=== PATIENT | male | born 1955 | race Caucasian/White ===

== ENCOUNTER 2024-01-13 14:09 | Outpatient (OUT) | payer MEDICARE, SELFPAY | END 2024-01-13 14:10 | disposition home or self-care (01) | LOC: PST 14:10 | PROVIDERS: Visit Provider Surgery | DX: Z01.818 Encounter for other preprocedural examination (principal); R19.5 Other fecal abnormalities ==

== ENCOUNTER 2024-09-08 12:06 | Outpatient (OUT) | payer MEDICARE, SELFPAY ==
--- OUTSIDE RECORDS SUMMARY | 2024-09-08 12:27 | XMS_ITS | CCD ---
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 Name Role Phone ALESSIO GÓMEZ Unavailable Unavailable GERRI ROQUE Unavailable Unavailable Karen David Primary Care Physician NILL ., DR CINTRON Attending Unavailable NILL ., DR CINTRON Admitting Unavailable KAREN DAVID Admitting Unavailable KAREN DAVID Attending Unavailable KAREN DAVID Primary Care Unavailable Karen David Referring Unavailable Abdulaziz GORE Attending Unavailable Karen David Referring Unavailable Abdulaziz GORE Attending Unavailable Allergies Allergy Classification Reported Allergen(s) Allergy Type Date of Onset Reaction(s) Facility (1 source) No Known Medication Allergies; Translations: [No Known Medication Allergies] Propensity to adverse reactions (disorder) [facility] Repository Medications Current Medications Medication Drug Class(es) Dates Sig (Normalized) Sig (Original) aspirin 81 mg delayed release oral tablet (4 sources) Platelet Aggregation Inhibitor, Nonsteroidal Anti-inflammatory Drug Start: 10-19-2022 take 1 tablet by mouth once daily aspirin 81 mg Oral EC Tab 81 mg = 1 tab(s), Oral, Daily, Refills(s) 0 Start Date: 10/19/22 Status: Ordered atorvastatin 40 mg oral tablet (4 sources) HMG-CoA Reductase Inhibitor Start: 10-19-2022 take 1 tablet by mouth once daily atorvastatin 40 mg Tab 40 mg = 1 tab(s), Oral, Daily, Refills(s) 0 Start Date: 10/19/22 Status: Ordered carvedilol 6.25 mg oral tablet (2 sources) alpha-Adrenergic Sonia, beta-Adrenergic Sonia Start: 12-03-2023 take 1 tablet by mouth twice daily Coreg 6.25 mg Tab 6.25 mg = 1 tab(s), Oral, BID, Refills(s) 0 Start Date: 12/03/23 Status: Ordered lisinopril 40 mg oral tablet (4 sources) Angiotensin Converting Enzyme Inhibitor Start: 10-19-2022 take 1 tablet by mouth once daily lisinopril 40 mg Tab 40 mg = 1 tab(s), Oral, Daily, Refills(s) 0 Start Date: 10/19/22 Status: Ordered meloxicam 7.5 mg oral tablet (1 source) Nonsteroidal Anti-inflammatory Drug Start: 12-03-2023 take 1 tablet by mouth once daily meloxicam 7.5 mg Tab 7.5 mg = 1 tab(s), Oral, Daily, Refills(s) 0 Start Date: 12/03/23 Status: Ordered pantoprazole 40 mg delayed release oral tablet (4 sources) Proton Pump Inhibitor Start: 10-19-2022 take 1 tablet by mouth once daily Pantoprazole [address] Tab 40 mg = 1 tab(s), Oral, Daily, Refills(s) 0 Start Date: 10/19/22 Status: Ordered sertraline 100 mg oral tablet (4 sources) Serotonin Reuptake Inhibitor Start: 10-19-2022 take 1 tablet by mouth once daily Zoloft 100 mg Tab 100 mg = 1 tab(s), Oral, Daily, Refills(s) 0 Start Date: 10/19/22 Status: Ordered tiZANidine 4 mg oral tablet (2 sources) Central alpha-2 Adrenergic Agonist Start: 10-19-2022 take 2 tablets by mouth at bedtime tiZANidine 4 mg Tab 8 mg = 2 tab(s), Oral, Bedtime, Refills(s) 0 Start Date: 10/19/22 Status: Ordered Problems Problem Classification Problem Date Documented Da te Episodic/Chronic Abdominal pain (11 sources) Epigastric pain; Translations: [Epigastric pain] Onset: 10-30-2022 Episodic Biliary tract disease (5 sources) Cholelithiasis without obstruction; Translations: [Calculus of gallbladder without cholecystitis without obstruction] Onset: 10-30-2022 Episodic Coronary atherosclerosis and other heart disease (6 sources) Coronary arteriosclerosis; Translations: [History of myocardial infarction] 10-19-2022 Chronic Essential hypertension (4 sources) Hypertensive disorder 10-19-2022 Chronic Hepatitis (4 sources) Viral hepatitis C 10-19-2022 Episodic Hyperplasia of prostate (10 sources) Benign prostatic hyperplasia; Translations: [Prostate nodule] Onset: 09-26-2022 10-19-2022 Chronic Other connective tissue disease (4 sources) Impingement syndrome of shoulder region 10-19-2022 Episodic Other gastrointestinal disorders (3 sources) Occult blood in stools 12-03-2023 Episodic Other gastrointestinal disorders (1 source) Abnormal feces; Translations: [Other fecal abnormalities] Onset: 08-18-2024 Episodic Other liver diseases (4 sources) Elevated liver enzymes level 10-19-2022 Episodic Other male genital disorders (4 sources) Impotence 10-19-2022 Chronic Other nervous system disorders (4 sources) Paresthesia 10-19-2022 Episodic Other nutritional; endocrine; and metabolic disorders (4 sources) Overweight in adulthood with body mass index of 25 or more but less than 30 10-30-2022 Episodic Other nutritional; endocrine; and metabolic disorders (2 sources) Overweight 12-10-2023 Episodic Residual codes; unclassified (4 sources) Edema of lower extremity 10-19-2022 Episodic Residual codes; unclassified (4 sources) Insomnia 10-19-2022 Episodic Spondylosis; intervertebral disc disorders; other back problems (4 sources) Disorder of lumbar disc 10-19-2022 Chronic Spondylosis; intervertebral disc disorders; other back problems (4 sources) Low back pain 10-19-2022 Episodic Substance-related disorders (4 sources) Psychoactive substance abuse 10-19-2022 Chronic Unclassified (1 source) Unknown / UNK(Unknown) Onset: 12-30-2017 Results Test Name Value Interpretation Reference Range Facility Ambulatory Visit Summaryon 1 10-19-2023 Ambulatory Visit Summary Ambulatory Visit Summary CARLOS MARCOS Herring :1955 Visit Date:08/18/2024 Ambulatory Visit Instructions Your Diagnosis Fecal occult blood test positive Abdominal pain, right lower quadrant Your Care Team Attending Physician - Abdulaziz GORE MD Primary Care Physician - Karen David MD Referring Physician - Karen David MD This Is Your Medications List Contact prescribing physician if questions or concerns aspirin (aspirin 81 mg Oral EC Tab) atorvastatin (atorvastatin 40 mg Tab) carvedilol (Coreg 6.25 mg Tab) lisinopril (lisinopril 40 mg Tab) pantoprazole (Pantoprazole [address] Tab) sertraline (Zoloft 100 mg Tab) Procedures Performed Anterior transposition of ulnar nerve, CABG x 3 - Coronary artery bypass grafts x 3, Lumbar discectomy. Discharge Vitals Heart Rate (Peripheral) 72 Respiratory Rate 16 Blood Pressure 142/84 Height 167 cm Height 66 in Weight 67.9 kg Weight 149.694 lb BMI 24.35 Medications What How Much When Instructions Unchanged aspirin (aspirin 81 mg Oral EC Tab) 1 Tablets By Mouth Every day Contact prescribing physician if questions or concerns Unchanged atorvastatin (atorvastatin 40 mg Tab) 1 Tablets By Mouth Every day Contact prescribing physician if questions or concerns Unchanged carvedilol (Coreg 6.25 mg Tab) 1 Tablets By Mouth 2 times a day Contact prescribing physician if questions or concerns Unchanged lisinopril (lisinopril 40 mg Tab) 1 Tablets By Mouth Every day Contact prescribing physician if questions or concerns Unchanged pantoprazole (Pantoprazole [address] Tab) 1 Tablets By Mouth Every day Contact prescribing physician if questions or concerns Unchanged sertraline (Zoloft 100 mg Tab) 1 Tablets By Mouth Every day Contact prescribing physician if questions or concerns Allergies No Known Allergies No Known Medication Allergies Problems Ongoing - Any problem that you are currently receiving treatment for. Abdominal pain, right lower quadrant BPH (benign prostatic hyperplasia) CAD (coronary artery disease) Cholelithiasis Elevated liver enzymes Epigastric pain Fecal occult blood test positive Hepatitis C History of myocardial infarction HTN (hypertension) Impotence Insomnia Low back pain syndrome Lower extremity edema Lumbar disc disease Narcotic abuse Paresthesia Positive fecal occult blood test Prostate nodule Shoulder impingement syndrome Historical - Any problem that you are no longer receiving treatment for. BMI 25.0-25.9,adult Overweight Patient Survey You may receive a survey via text or e-mail asking about your office visit. Please share your experience with us by completing your survey. We appreciate your feedback and thank you for choosing us for your care. Sherri Waddell [facility] General Surgery Office/Clini c Noteon 08-18-2024 General Surgery Office/Clinic Note General Surgery Office/Clinic Note Chief Complaint update H&P for colonoscopy HPI Staff 69 year old male presents on consultation to update H&P for planned colonoscopy. Last consultation completed 12/2023. Patient cancelled scheduled colonoscopy due to family issues. Never had colonoscopy in the past. No known family history of colon cancer. Reports occasional RLQ pain that lasts for approximately 5 minutes then resolves without intervention. Denies rectal pain or bleeding. Denies bowel changes, nausea or vomiting. History of Present Illness 69 yo male with h/o CAD, htn, hypercholesterolemia, GERD, low back pain, hepatitis C, bph, presents to reschedule colonoscopy; seen in December for positive fecal occult blood test; cancelled colonoscopy at that time; denies change in bms or gross blood in stools; some intermittent RLQ pain, ache, lasts , 10 minutes, no N/V; no wt loss; h/o remote appendectomy; no previous colonoscopy; on baby asa daily, no NSAID use currently; no tobacco use; no fmhx of GI malignancy or IBD. Review of Systems PHQ Score Initial Depression Screen Score: 0 SCORE ROS - Provider Constitutional: no fever, no sweats, no weight loss. Eyes: yes glasses, no blurred vision, no visual loss. ENMT: no dentures, no hoarseness, no swallowing difficulties, no hearing loss, no ear infection(s), no nose bleeds. Cardiovascular: normal blood pressure, no chest pain, regular heartbeat, no heart murmur. Respiratory: no shortness of breath, no cough, no asthma, no wheezing. Gastrointestinal: no nausea, no vomiting, no diarrhea, no constipation, no blood in stool, no change in bowel habits, no abdominal pain, no hepatitis. Genitourinary: no kidney stones, no urine infection, no dysuria. Musculoskeletal: no pain, no weakness. Skin: no changing moles, no rash, no skin lumps. Neurologic: no seizures, no epilepsy, no headache. Psychiatric: no emotional or psychiatric problem. Heme/Lymph: no bleeding problems, no anemia, no blood clots, no transfusions. Allergy/Immunologic: no swollen lymph nodes/glands, no IV drug abuse. Other: Additional ROS info: Except as noted in the above Review of Systems and in the History of Present Illness, all other systems have been reviewed and are negative or noncontributory. Physical Exam Vitals & Measurements HR: 72(Peripheral) RR: 16 BP: 142/84 HT: 66 in HT: 167 cm WT: 67.9 kg WT: 149.694 lb BMI: 24.35 HEENT: normal conjunctiva, sclera clear, no scleral icterus, EOM intact, PERRLA, oral mucosa moist without lesions. Neck: trachea midline, no mass, symmetric, no thyromegaly or nodules, no adenopathy Respiratory: lungs CTA, respirations non labored. Cardiovascular: regular rate and rhythm, no murmur, no pedal edema or varicosities. Gastrointestinal: soft, non distended, mild tenderness RLQ, no peritoneal signs, no masses, no palpable hernias, diastasis recti no, no hepatosplenomegaly; normal bs Lymphatic: no cervical adenopathy, no supraclavicular adenopathy. Musculoskeletal: normal gait, digits and nails without infection, nodes, cyanosis, clubbing. Skin: no rashes, no lesions, no ulcers, no subcutaneous nodules, induration. Psychiatric/Neuro: oriented to time, place, person, judgement normal, affect appropriate for age, insight intact, no focal deficits. Tests: labs reviewed, review of old records completed , Discussed surgical options, risks, and possible complications with patient. Assessment/Plan 1. Fecal occult blood test positive (R19.5: Other fecal abnormalities) plan colonoscopy under anesthesia, informed consent obtained. 2. Abdominal pain, right lower quadrant (R10.31: Right lower quadrant pain) see # 1 Follow-up No qualifying data available Problem List/Past Medical History Ongoing Abdominal pain, right lower quadrant BPH (benign prostatic hyperplasia) CAD (coronary artery disease) Cholelithiasis Elevated liver enzymes Epigastric pain Fecal occult blood test positive Hepatitis C History of myocardial infarction HTN (hypertension) Impotence Insomnia Low back pain syndrome Lower extremity edema Lumbar disc disease Narcotic abuse Paresthesia Positive fecal occult blood test Prostate nodule Shoulder impingement syndrome Historical BMI 25.0-25.9,adult Overweight Procedure/Surgical History Anterior transposition of ulnar nerve, CABG x 3 - Coronary artery bypass grafts x 3, Lumbar discectomy. Medications aspirin 81 mg Oral EC Tab, 81 mg= 1 tab(s), Oral, Daily atorvastatin 40 mg Tab, 40 mg= 1 tab(s), Oral, Daily Coreg 6.25 mg Tab, 6.25 mg= 1 tab(s), Oral, BID lisinopril 40 mg Tab, 40 mg= 1 tab(s), Oral, Daily Pantoprazole [address] Tab, 40 mg= 1 tab(s), Oral, Daily Zoloft 100 mg Tab, 100 mg= 1 tab(s), Oral, Daily Allergies No Known Allergies No Known Medication Allergies Social History Alcohol Current. Beer. Daily., 08/18/2024 Substance Abuse Current. Marijuana. 3-5 times per week. Previous treatment: None., (more content not included)... [facility] Comment on above: Result Comment: Elec tronically Signed By: BAO NOVA, Abdulaziz Travis\Date and Time Signed: 08/18/24 14:30 EST Insurance Correspondenceon 0 01-01-2024 Insurance Correspondence [id number] [facility] Coding Queryon 12-18-2023 Coding Query [id number]#[id number] [facility] Coding Summaryon 12-18-2023 Coding Summary HTMLBase 64 KgonpukaYVw3wBc+PGhlYWQ+PE1F ETPzY60afVWwvJ2dX5BORPaCRzpd WUOUMBzNVnQmvkLhGR2nmLYiDIRi IC8+VP4rLRZiQuxkjKDwf5R4kXJ3 T21rkc2kFKqjuPQ1KMRaTgFxygnx j1nekHm2IVozVkjqUoFz WQNisY64ZJF4eM18Sj70kMCczAPq d4setWi3ZiCjFSPzGRM7iCgpMSid u5AmTMHaR00fxPYel8B1 WGBnzUrrrFVzUwVdsTZ9fG7rHJtf qtbra0oqydowTni4tm83uOUfk2U5 aZA0A5RkynI3PGTioXLb HlhwtDEMsB8bvmlbq3kiqyijIbFv KSUzJIq8XSi2OFIjpSbyBoSiCD67 UJV5OYQundIsM2NyJMAf iTyeEbZ7x3Z1Bj7MO2PXVfjgD5YC TUFSWTwvdGQ+CE00wv88M2VwJxtg Ihc5QFGsZWA9dEM3kY4m OHKhJNxwd0O5tUT1K3EaqyIpnc5a x9tgEYCkLChkU30gkZEij9T9MTKd mBW3JSVbvAymPdWeeW96 Oyc+RFNnxKvxt6WiVgwur5xks1hd sOd0LakcBVCtfcVkgIopKSZ7p7To Vk3rRGJyzOH7jVX5eJ7y TuWaXrU4QQjpF837HsAznQZcAofg N08aQ5LbqOE+JRRlXyx0PIIztZlj BH5mX0EbLHQrgtfnwOQl nEidVA7sUCXvhcxoJNKxyB2nMLOi D1j0KoJjRpW3JTwuC5CpUAIwakkp Ja18nT9nZgKsEwQ4QAbe S2IboqT1XZWmxETnOVezOSV7W09o m8U1WBDqWTOfNHI5kIG8dD1ceHoq bjogbGVmdDsgdmVydGlj VRahZMhkG990AMRrqSupCtRsJMtc ZyBEYXRlOiAgMDQvMTAvMjAyNDwv dGQ+ODSaFBL0vJxlXKZj bYWlMVmfUm6vzNspfLduRL2pSIBi jvsaHYVtbA5oRNSkjSGgiUpiAP0x ZEQoxzlpd812DlNfOCW2 SSHtlMGpG1CagM7kWnWtOILvTWZy B3EfkKDkXTbmG021WBgcAlZ1FGLj ogCfX9FtQZGtgFcgTqQ5 g1L2Zl4Qe3AvxbrsJ1PmkKYfNtTg GjehAJg4H8ShExrzgRE+XV13YLUq XX77LNa7FZY6eNizUIzd SJMoM4UiqL3pLnYfJEIyOVLyXgr+ PHRhYmxlIHdpZHRoPScxMDAlJyBz aFbrJX7mPd3bGRAkSVMo nCskbOUfFhIzv6lvWGVfXWqkYH5i bKxeY1ZtoKD0JQNta7a7Vf90U13g W6VmlMS+RJMldAM3oUQ2 sD1pSyNkAfX4MQwjD349HmXquPDe Xrecc1vis3asyIq0HuP8SQFzlhZq rUawPVW4m5DbOw76D20h LDumOIDcGULgAXDaPWXizXsier8m lC7uRb0+NPRdlEE7jRS6mZ4xAcXx DbB8PAdlN543WtImlUGu Olyaf5zlp6phlLb9IsFrIEFcylUd lCheHWC3y0HxYj62T1RuvNgfn8At Rbd9fh01qITyf4F4sGL8 Q4OfUOKzclijfFXeoSseZU6nWJGz vjcsDBBpxW0rRYEsN4x7YnSnHlA5 VNftJ7GdwiT9CICqkNBq QJXfpPXAmN1qzamaq2cjedbsPaSd XUDgPSh0NRy0DKMapXumVhQwJKO3 WjT0GOK3jDQgcY7bkHmb hxvksH3vEvd+EDF0zFMfaQVDFX3j OjwvdGQ+VYNpQWP6iQwzMMeuZEXc cK0qQITuH4i8NcFuNrA5 MKudP0DhzoZ6BWWfhBWbPFLujHFM qD0aaruiw4vbbiztAvElTXGkPDf5 KLs3BRJsbLpzDzXhZWI6 IzR6KNW7hUVazJ7dsNwvjiptgG0s Oyc+QxsrkXhhZMM8MDv4N9WoJqx8 ZJYpiBzbCZ6quKQzRHng Hp1qbKxquRykDR3hXNLwwmxjb051 LmDyd4xaADTpwDYsKCoaRXD5R96k s5E3ANCaXXJrVTU7uFS1 oG4aoJjhshoirZCbiHkixhUjbMfb MCgzHVweR257XCHcpXahUzJiBEg9 D2DnNeu3JOAjaBnqED4w kNIsJOheSy8zmQstaVhtWE8pLZOz tmyrn208BvAlm6klQPZxeJLpMJcb TPN7Q05hv5A2HLZeBMVu HKG8hXH9zV2rgQwcncshzQAouVyr brTwdXqvWLekOCizX374KPEbbQhz CzJapJd3J8MgDfg8PYGe dQznDX1ueNMsDOdnIs0agKzjzAxi MM7bRSBkwrpnx983HrUah0acEZHm uHHkXWddFMT4K54fe5B2 BGBkECOvQZT1pTJ1yR1rdLgxmjqj cABqnZamzaNhtNpdILlfZKttI760 IHRvcDsnPlBhdGllbnQg QQhhVWv7Q5BvWwxhrNZ+PO08LEBg BS17mLGpoRStg5dtpTt4WcDoYGCn VAN9yPcjITfqu5ToJCEj E56hpUNpt3W7PHUeaRlqeBUqTeWk dHK4wK7dZWhjnebjr4dbdzmbGapl e8dlxn72rI19F11qXJtt PDGyCJWuRWVzUWVkdOkbdp8fyE2b Ii8+XKRzvAK0fKZ1nM1sJBWbFdY0 SSzaI688CqXcbWHwZwzz t9aab3nxgYf3AeS2YYEzjcRkkQyl JIV4y4NnZa96I22vETrbVBOzTHZq SSCxDPYkjWhsvw0wgF1u Ii8+CZMrfFF8uBH7dG6hAmXcTuX2 OWouN024TaCeeZYtPcoyO51zT7Lc dXA+GHEqBwv3HVPudHvi DL3xmRIiXDmpFk8sJXC0JpQiAbNx YRrnT8HjUKGvpkdhlocdaME4HQVt RVCyhO35Gn0jqQwdEYEe kCLDxW9pbvxzw1gypgfbOfTvFITv RCp4YHj8PWVwcOgjSnAsJMD3NlE3 KMJ5cVPaeS0xoGvuoldm qR7hN6SoSKIdyybmSw06cH1yVxIu EgT7TAlnBxf+X18VG8vpLW7KUhaw Na6VTGTFDN54DE62uGWb f0Z4iEV0U0IqDGOsfkdlybqhpYG7 HOWsYZQfbV66uJLaLRsvVi0hs9P9 f124PBRkTLRppQ89Bz8c jImrZVOfiXYKyT8nhcrrz7uftkkv EsOkNJTpBRb1LDm6BSJecGffOhAe ODP3YcX6NQH6bBBqtE5s cExvuwwalM9mJtq+MDYvMDUvMTk1 NjwvdGQ+ZCTdNLA3eCkmCBhhQDEm xF8zJWXfW1n7JyHkIkC1 NMfhB3ZqSTBhexgyBh47hY7zEpJj KrV1ZIdbU9AckiB0BOGkhEYbYTdk IRF1Q56iw0A4VBGmEMWf DGS6wLZ3nV4hiEfgidaddJWruPos csVksCztWHqnGHabN885UMVdsYbw GkS8NKdnOJSeWI74KS12 iBIgu8Q1wIN7V6ElKACmyaixuwda xKF8OLEmIJKmlF38hDYhXAhyKp3s w4T9o134MUGeLEJzfM83 Eo7ggQsrGUNbdCSCyA1iydmue3mw fxdsFhLpNDDbBYu6GUs1NMRquJut IsTfSSC6ZcV7CTR2hMGr tD8chZhzovzltZ2wZxc+TUFMRTwv dGQ+MSLqDHF7qCbhDOkeQMUzjR2s VANzX9l2DaScApY7OWjj S7KcBEJlqscpXg77yQ4zPkGwAeH3 VSugP5BcfwC3GIYchMRyIMeeHVU6 E27sr4B0PQRrNDIsIDR1 eLG3qC8fcLsgcbskiSPrqPjurqFh jUcpJZewZSrfN549ZYLidVdjDi4S JO64JY39T6RhMmukhKFo bGU+PHRhYmxlIHdpZHRoPScxMDAl NmHfvTigYT0gMg2oTINxFFCaxBkt kYEaOoRsb1ntZQRoCVhu FV0oiRjaY8XjyGY1GSWuc0q1Rs50 Y82yJ6WynPB+RTUttZJ5sNR7wW4o YkNbSaJ6UDlhY528PhNx jKKqVajml8uvv3cknLh2BuIoQLPl xwKtcEmfKIV2c1WxHc40N43rDQdk ZHRoPSIyMCUiIHZhbGln gc8vsB4gIz8+SZSkdWW3hNX2lO6o MkAiYlB6CSysN021OtJnpSXsCmsu T92gZ6RmtIH+PHRyPjx0 UVStxMkqEM5ipZUkRLtlWw7yMSS2 UqHcMpAuBUdsU1ZaCZUyiwhfbfhf yBN5RKLeIWFxoV36Wo7j kIysFy7tPLGmVKO5BMXdzNIjB8Il wW4eElXoXTUwQMPgN4ZkvOXzHAiq P791TUaxDoN9SCLniyTm T2XsVPJnyGltXaT8q5Z8Lc3TdZzo gDKhCG6fLmHzITg9G5RoQkk2SHLt yLwyVB7saYSoTTebWi4j gTbuoJdwAP7yTGWllkpcg205OjXq f7nlTLJhnGMgYQayAVM9W40jf7R0 SNZmHWBzREC2qFS3yG2u bGlnbjogbGVmdDsgdmVydGljYWwt DEpwY234LTBnjLzbKaXMQkh8Z2Td Kfs5EWGahPurHS9azNPx WSpxBx7xaOuthEkgNP0xUJPzviax s786HkEzv7juSNGtsFSlIUrzBIU5 F82mn1Y3XMCsIOKzAXG0 lIU0eH8unKupdagxaCPohWbweiEu tHruAGabEVymQ202IMJkfIdxDw1D Ggu0I1EyWkk2CLNjdDcm VE1dpPPrLKdzJm6yqNurnJbmFZ3m QJXzzzbuw133LyOhp9suYBOknOKi EDvzXPU9N36pv6P2QFZo SJEqRCF0hZO4wJ8jdAgiqrnjqCIw yOgoflXfsJorFVbtQLyeN360HQGv cDsnPlBheWVyOjwvdGQ+ OM58hf54E6YkDjotUgw1LOUhUZG2 zBU6hY4vKXQwBTfej1G9oUH1G4Ge ghZted7wn6clEMIzHBca Y29 (more content not included)... [facility] Consent for Procedure/Surger yon 12-11-2023 Consent for Procedure/Surgery [id number]#[id number] [facility] Ambulatory Visit Summaryon 0 12-10-2023 Ambulatory Visit Summary MARCOS GONZALEZ :1955 Visit Date:12/10/2023 Ambulatory Visit Instructions Your Care Team Attending Physician - Abdulaziz GORE MD Primary Care Physician - Karen David MD Referring Physician - Karen David MD This Is Your Medications List Contact prescribing physician if questions or concerns aspirin (aspirin 81 mg Oral EC Tab) atorvastatin (atorvastatin 40 mg Tab) carvedilol (Coreg 6.25 mg Tab) lisinopril (lisinopril 40 mg Tab) meloxicam (meloxicam 7.5 mg Tab) pantoprazole (Pantoprazole [address] Tab) sertraline (Zoloft 100 mg Tab) Procedures Performed Anterior transposition of ulnar nerve, CABG x 3 - Coronary artery bypass grafts x 3, Lumbar discectomy. Discharge Vitals Heart Rate (Peripheral) 66 Respiratory Rate 16 Blood Pressure 178/94 Height 167 cm Height 66 in Weight 71.6 kg Weight 157.52 lb BMI 25.67 Medications What How Much When Instructions Unchanged aspirin (aspirin 81 mg Oral EC Tab) 1 Tablets By Mouth Every day Contact prescribing physician if questions or concerns Unchanged atorvastatin (atorvastatin 40 mg Tab) 1 Tablets By Mouth Every day Contact prescribing physician if questions or concerns Unchanged carvedilol (Coreg 6.25 mg Tab) 1 Tablets By Mouth 2 times a day Contact prescribing physician if questions or concerns Unchanged lisinopril (lisinopril 40 mg Tab) 1 Tablets By Mouth Every day Contact prescribing physician if questions or concerns Unchanged meloxicam (meloxicam 7.5 mg Tab) 1 Tablets By Mouth Every day Contact prescribing physician if questions or concerns Unchanged pantoprazole (Pantoprazole [address] Tab) 1 Tablets By Mouth Every day Contact prescribing physician if questions or concerns Unchanged sertraline (Zoloft 100 mg Tab) 1 Tablets By Mouth Every day Contact prescribing physician if questions or concerns Allergies No Known Allergies No Known Medication Allergies Problems Ongoing - Any problem that you are currently receiving treatment for. Abdominal pain, right lower quadrant BMI 25.0-25.9,adult BPH (benign prostatic hyperplasia) CAD (coronary artery disease) Cholelithiasis Elevated liver enzymes Epigastric pain Fecal occult blood test positive Hepatitis C History of myocardial infarction HTN (hypertension) Impotence Insomnia Low back pain syndrome Lower extremity edema Lumbar disc disease Narcotic abuse Overweight Paresthesia Prostate nodule Shoulder impingement syndrome Patient Survey You may receive a survey via text or e-mail asking about your office visit. Please share your experience with us by completing your survey. We appreciate your feedback and thank you for choosing us for your care. Normal [facility] Coding Queryon 11-29-2023 Coding Query [id number]#[id number] [facility] Physician Referralon 024 Physician Referral [id number]#1.00TIFF Normal [facility] Physician Referral [id number]#1.00TIFF [facility] Fecal FITon 11-22-2023 Fecal FIT Positive Abnormal Negative [facility] Comment on above: Performed By: #### 1 [id number] #### [facility] (DEFAULT) [address] [place] [address] Internal QC OK? Pass Normal [facility] Comment on above: Performed By: #### 1 [id number] #### [facility] (DEFAULT) [address] [place] [address] T3 Free LCon 11-22-2023 Triiodothyronine,Fr ee,Serum LC 3.4 pg/mL Invalid Interpretation Code 2.0-4.4 [facility] Comment on above: Result Comment: Perf ormed At: [facility] [address] [id number] Brooklynn Tom PhD Ph:[phone] Performed By: #### 1 [id number] #### [facility] (DEFAULT) [address] [place] [address] T4, Totalon 11-21-2023 T4 [Mass/Vol] 6.21 ug/dL Normal 6.09-12.23 [facility] Comment on above: Performed By: #### 1 [id number], [id number], [id number], [id number], [id number], 70864757, 6012652, 13609900, [id number] #### [facility] (DEFAULT) [address] [place] [address] .Auto Diff 1on 11-19-2023 Auto Webster % 12 % Normal 09-20 [facility] Comment on above: Performed By: #### 1 [id number], [id number], [id number], 2705038, [id number], 35160264, 6836189, 33101234, [id number] #### [facility] (DEFAULT) [address] [place] [address] Baso Abs# 0.0 x10 Normal 0.0-0.2 [facility] Comment on above: Performed By: #### 1 [id number], [id number], [id number], 1995245, [id number], 11844233, 1491744, 76827274, 13711004 #### [facility] (DEFAULT) [address] [place] [address] Basophils/100 WBC (Bld) 0.8 % Normal 0.2-2.0 [facility] Comment on above: Performed By: #### 1 [id number], 7858783, [id number], 1305013, 3914134933, 23099319, 9427412, 31351496, 34819441 #### [facility] (DEFAULT) [address] [place] [address] Eos Abs# 0.2 x10 Normal 0.0-0.4 [facility] Comment on above: Performed By: #### 1 [id number], 5790799, [id number], 2820369, [id number], 15184837, 1860353, 00774347, 22887974 #### [facility] (DEFAULT) [address] [place] [address] Eosinophils/100 WBC (Bld) 3.6 % Normal 0.9-4.0 [facility] Comment on above: Performed By: #### 1 [id number], 9364645, [id number], 6298891, 1787652469, 43644562, 7152925, 75408836, 06454467 #### [facility] (DEFAULT) [address] [place] [address] 48698 Lymph Abs# 1.3 x10 Normal 1.3-2.9 [facility] Comment on above: Performed By: #### 1 [id number], 7815392, 0275603294, 7774086, 0940914221, 74835442, 3375159, 44365716, 46636183 #### [facility] (DEFAULT) [address] [place] [address] Lymphocytes/100 WBC (Bld) 23 % Normal 14-48 [facility] Comment on above: Performed By: #### 1 [id number], 1888072, 0164413103, 0075803, 8852816366, 96135815, 7471055, 55863441, 35419839 #### [facility] (DEFAULT) [address] [place] [address] Webster Abs# 0.6 x10 Normal 0.0-0.8 [facility] Comment on above: Performed By: #### 1 [id number], 7794689, 1303999266, 2327088, 6855647349, 36471563, 7783046, 68348439, 62044846 #### [facility] (DEFAULT) [address] [place] [address] Neut Abs# 3.4 x10 Normal 1.5-9.2 [facility] Comment on above: Performed By: #### 1 [id number], 7874328, 4250641642, 6615366, 3560756618, 66451588, 9704907, 10462733, 91259036 #### [facility] (DEFAULT) [address] [place] [address] Neutrophils/100 WBC (Bld) 61 % Normal 44-88 [facility] Comment on above: Performed By: #### 1 565511903, 7693999, 9457838403, 6968696, 1734390351, 84039787, 3619516, 02082143, 16343774 #### [facility] (DEFAULT) [address] [place] [address] CBC w/ Auto Diffon 4 Erythrocyte distribution width (RBC) [Ratio] 16.6 % High 11.5-15.0 [facility] Comment on above: Performed By: #### 1 [id number], 7623938, 6745914828, 8327662, 0957578676, 67677039, 2350422, 58765404, 59984673 #### [facility] (DEFAULT) [address] [place] [address] Hematocrit (Bld) [Volume fraction] 38.1 % Normal 34.8-51.9 [facility] Comment on above: Performed By: #### 1 [id number], 2874638, 2220895552, 1500955, 4166122455, 01990687, 6537844, 33917831, 21491332 #### [facility] (DEFAULT) [address] [place] [address] Hemoglobin (Bld) [Mass/Vol] 12.6 g/dL Normal 11.8-17.7 [facility] Comment on above: Performed By: #### 1 625698405, 6433388, 6292040938, 7137047, 2595201681, 03088418, 5160007, 27319293, 30254750 #### [facility] (DEFAULT) [address] [place] [address] Man Diff? Auto Invalid Interpretation Code [facility] Comment on above: Performed By: #### 1 126425378, 4557624, 7447963378, 4922055, 3707592744, 09039695, 7912827, 23455743, 26046697 #### [facility] (DEFAULT) [address] [place] [address] 61859 MCH (RBC) [Entitic mass] 28 pg Normal 24-34 [facility] Comment on above: Performed By: #### 1 442486055, 4588593, 4412477923, 0207122, 7683455178, 86590132, 6265794, 25485521, 06183243 #### [facility] (DEFAULT) [address] [place] [address] 66760 MCHC (RBC) [Mass/Vol] 33 g/dL Normal 26-37 [facility] Comment on above: Performed By: #### 1 681411312, 3955196, 2809482253, 5160627, 7394545968, 09897522, 2297623, 83820414, 90468214 #### [facility] (DEFAULT) [address] [place] [address] 13045 MCV (RBC) [Entitic vol] 83 fL Normal 81-100 [facility] Comment on above: Performed By: #### 1 261973848, 2520130, 3608188085, 6058061, 4850740077, 51178538, 8904882, 41019089, 75354769 #### [facility] (DEFAULT) [address] [place] [address] 11425 Platelet 81 x10 Low 138-427 [facility] Comment on above: Performed By: #### 1 349629582, 8543988, 4255802756, 3346552, 7507583131, 25366287, 8740557, 66599938, 20383561 #### [facility] (DEFAULT) [address] [place] [address] 02231 Platelet mean volume (Bld) [Entitic vol] 9.4 fL Normal 6.3-10.2 [facility] Comment on above: Performed By: #### 1 789218449, 5964236, 6154913419, 7096784, 2504616789, 10369163, 6624551, 58644071, 95060891 #### [facility] (DEFAULT) [address] [place] [address] RBC 4.59 x10 Normal 3.70-5.30 [facility] Comment on above: Performed By: #### 1 946083579, 5901041, 9448116191, 8610367, 1056628721, 04524094, 0339368, 19720796, 96160786 #### [facility] (DEFAULT) [address] [place] [address] 11866 WBC 5.6 x10 Normal 3.5-10.5 [facility] Comment on above: Performed By: #### 1 337494046, 4488823, 4697580627, 7566870, 0900463416, 30925514, 7518466, 56971650, 33261162 #### [facility] (DEFAULT) [address] [place] [address] 70205 CMP Standardon 11-19-2023 eGFR Non AA >60 Invalid Interpretation Code [facility] Comment on above: Performed By: #### 1 051317711, 8288228, 5070661305, 1421910, 1386453272, 26114072, 7360407, 48700408, 30465110 #### [facility] (DEFAULT) [address] [place] [address] eGFR AA >60 Invalid Interpretation Code [facility] Comment on above: Performed By: #### 1 878092883, 3543165, 5460046900, 9687902, 7576738586, 19069385, 5219551, 93610765, 56549829 #### [facility] (DEFAULT) [address] [place] [address] Albumin [Mass/Vol] 4.3 g/dL Normal 3.5-5.0 [facility] Comment on above: Performed By: #### 1 840156271, 6704160, 5328151978, 2833775, 5340799847, 10009018, 8097161, 28000333, 88505672 #### [facility] (DEFAULT) [address] [place] [address] Alk Phos 59 IU/L Normal 32-91 [facility] Comment on above: Performed By: #### 1 920881458, 1708985, 7044960840, 8377017, 5297557879, 63113484, 7629437, 47037785, 66442594 #### [facility] (DEFAULT) [address] [place] [address] ALT [Catalytic activity/Vol] 32.0 U/L Normal 17.0-63.0 [facility] Comment on above: Performed By: #### 1 666302976, 6320308, 1033805043, 5931002, 1964446339, 36423279, 7364828, 17320670, 53629261 #### [facility] (DEFAULT) [address] [place] [address] 47090 AST [Catalytic activity/Vol] 42 U/L High 15-41 [facility] Comment on above: Performed By: #### 1 164489956, 5835100, 4129165586, 0808672, 0399387244, 37197360, 9983666, 00476294, 83739254 #### [facility] (DEFAULT) [address] [place] [address] 42648 Bili Total 0.8 mg/dL Normal 0.3-1.2 [facility] Comment on above: Performed By: #### 1 424680721, 8130877, 4473872116, 6636700, 3675057858, 33036576, 6680402, 08440510, 19581809 #### [facility] (DEFAULT) [address] [place] [address] 38614 Calcium [Mass/Vol] 9.5 mg/dL Normal 8.9-10.3 [facility] Comment on above: Performed By: #### 1 116935938, 0371112, 6672384606, 3053746, 9088719606, 19852405, 8346086, 32553129, 52276625 #### [facility] (DEFAULT) [address] [place] [address] 12006 Chloride [Moles/Vol] 107 mmol/L Normal 101-111 [facility] Comment on above: Performed By: #### 1 450308828, 9097667, 9091129540, 3991253, 0360644048, 51745971, 7086649, 59780198, 30323108 #### [facility] (DEFAULT) [address] [place] [address] 78185 CO2 [Moles/Vol] 25 mmol/L Normal 21-32 [facility] Comment on above: Performed By: #### 1 271041570, 7394180, 5880872612, 8100646, 6523444010, 33397753, 0219498, 34207144, 02298923 #### [facility] (DEFAULT) [address] [place] [address] 54076 Creatinine [Mass/Vol] 1.04 mg/dL Normal 0.90-1.30 [facility] Comment on above: Performed By: #### 1 277216723, 8218320, 6594928204, 5386015, 8295112932, 91029397, 5059024, 34939791, 19930753 #### [facility] (DEFAULT) [address] [place] [address] 07009 Glucose [Mass/Vol] 117.0 mg/dL Normal 74.0-118.0 [facility] Comment on above: Performed By: #### 1 072179338, 7317311, 0077129364, 5052193, 9633995514, 72116562, 3765147, 82349694, 04693044 #### [facility] (DEFAULT) [address] [place] [address] 95760 Potassium [Moles/Vol] 4.4 mmol/L Normal 3.6-5.1 [facility] Comment on above: Performed By: #### 1 415116472, 6622602, 0199972373, 7399860, 6564747328, 20114719, 6731581, 49076455, 43533963 #### [facility] (DEFAULT) [address] [place] [address] 16601 Protein [Mass/Vol] 7.9 g/dL Normal 6.5-8.1 [facility] Comment on above: Performed By: #### 1 221906268, 5594826, 2887539292, 5347147, 1913374700, 18648646, 0939242, 02504547, 38425910 #### [facility] (DEFAULT) [address] [place] [address] 31787 Sodium [Moles/Vol] 138.0 mmol/L Normal 136.0-144.0 [facility] Comment on above: Performed By: #### 1 198199141, 7168436, 4539829453, 9824657, 9520188910, 41587055, 3312745, 04790348, 18010878 #### [facility] (DEFAULT) [address] [place] [address] 84928 Urea nitrogen [Mass/Vol] 14 mg/dL Normal 8-26 [facility] Comment on above: Performed By: #### 1 121127978, 4830289, 6274860296, 2534253, 5829375859, 58490732, 0476178, 63725086, 90536635 #### [facility] (DEFAULT) [address] [place] [address] 42665 Albumin/Globulin [Mass ratio] 1.1 {ratio} Low 1.4-2.6 [facility] Comment on above: Performed By: #### 1 835346668, 8978673, 3720305735, 0514021, 1540219837, 91667253, 7896198, 07549385, 79729177 #### [facility] (DEFAULT) [address] [place] [address] Anion gap [Moles/Vol] 10.4 mmol/L Normal 5.0-19.0 [facility] Comment on above: Performed By: #### 1 431080058, 6731106, 4406668651, 1102705, 6908382668, 82300793, 1609099, 05909207, 19645738 #### [facility] (DEFAULT) [address] [place] [address] 15871 Globulin (S) [Mass/Vol] 3.6 g/dL Normal 1.5-4.3 [facility] Comment on above: Performed By: #### 1 345362734, 2537431, 1142563248, 7248260, 5459905583, 95064981, 7262624, 12896008, 59659166 #### [facility] (DEFAULT) [address] [place] [address] 79855 Osmolality 277 mOsm/L Invalid Interpretation Code [facility] Comment on above: Performed By: #### 1 032498587, 8577199, 6335094634, 0916445, 2230591940, 61922405, 1708511, 88249074, 44021099 #### [facility] (DEFAULT) [address] [place] [address] 07092 Urea nitrogen/Creatinine [Mass ratio] 13.4 mg/mg Normal 4.6-16.2 [facility] Comment on above: Performed By: #### 1 269278774, 1047093, 9272847516, 4506814, 0997928581, 57349073, 8321686, 08666506, 64358934 #### [facility] (DEFAULT) [address] [place] [address] HgbA1c Standardon 11-19-2023 .Hb 12.1 Invalid Interpretation Code [facility] Comment on above: Performed By: #### 1 808497987, 6960991, 8022112155, 2792697, 7373697215, 45717366, 7864990, 38061656, 10394640 #### [facility] (DEFAULT) [address] [place] [address] .Hgb A1c 0.44 g/dL Invalid Interpretation Code [facility] Comment on above: Performed By: #### 1 886661670, 4747003, 3019625497, 3279034, 1172327112, 68148373, 6651345, 11857933, 18168695 #### [facility] (DEFAULT) [address] [place] [address] Glucose [Mass/Vol] 108 mg/dL Invalid Interpretation Code [facility] Comment on above: Performed By: #### 1 316935785, 1808145, 7363131968, 7851482, 3511363387, 25320960, 2714400, 31587731, 80383235 #### [facility] (DEFAULT) [address] [place] [address] HbA1c (Bld) [Mass fraction] 5.4 % Normal 4.6-6.2 [facility] Comment on above: Performed By: #### 1 233886702, 1721053, 5902278598, 5867454, 9033917700, 64598215, 9806889, 95302819, 27452367 #### [facility] (DEFAULT) [address] [place] [address] Lipid Panel Standardon 11-18 Cholesterol [Mass/Vol] 191.0 mg/dL Normal 66.0-200.0 [facility] Comment on above: Performed By: #### 1 683764213, 5487267, 9890314685, 5509160, 0114655791, 79989705, 4366467, 71744628, 56994090 #### [facility] (DEFAULT) [address] [place] [address] Cholesterol in HDL [Mass/Vol] 67 mg/dL Normal 40-71 [facility] Comment on above: Performed By: #### 1 620924543, 8711252, 5967187812, 1734754, 2284283724, 49142510, 6635047, 45188746, 03206997 #### [facility] (DEFAULT) [address] [place] [address] 94570 Triglyceride [Mass/Vol] 212.0 mg/dL High 0.0-150.0 [facility] Comment on above: Performed By: #### 1 059513593, 6975421, 9415651804, 0111844, 1067653488, 33228441, 7547802, 42566883, 50982941 #### [facility] (DEFAULT) [address] [place] [address] 71727 Cholesterol in LDL [Mass/Vol] 82 mg/dL Normal 1-100 [facility] Comment on above: Performed By: #### 1 961576076, 4792563, 4218188070, 9332584, 2913980350, 60841319, 7968268, 61468534, 52458675 #### [facility] (DEFAULT) [address] [place] [address] 69613 Cholesterol.total/C holesterol in HDL [Mass ratio] 2.8 {ratio} Normal 0.0-4.5 [facility] Comment on above: Performed By: #### 1 611084239, 1399156, 8984080724, 6301715, 5804895650, 47367772, 8977126, 63841843, 44485761 #### [facility] (DEFAULT) [address] [place] [address] 96252 VLDL. 42 mg/dL High 5-40 [facility] Comment on above: Performed By: #### 1 432366772, 3418825, 7765153214, 8280122, 9739368591, 81278834, 0365733, 40079936, 90139614 #### [facility] (DEFAULT) [address] [place] [address] 04787 PSA Screenon 11-19-2023 PSA Screen 0.20 ng/mL Normal 0.00-4.00 [facility] Comment on above: Result Comment: [employer] Synchron Access Clinical System (Chemiluminescence) Values obtained with different assay methods or kits cannot be used interchangeably. Results cannot be interpreted as absolute evidence of the presence or absence of malignant disease. Performed By: #### 1 221576198, 0567458, 4101210662, 6159088, 4287205440, 06096067, 8024527, 95188399, 28037934 #### [facility] (DEFAULT) [address] [place] [address] Provider Orderson 11-19-2023 Provider Orders [id number]#[id number] Normal [facility] TSHon 11-19-2023 TSH Qn 3.10 m[IU]/L Normal 0.45-5.33 [facility] Comment on above: Performed By: #### 1 893918553, 4284754, 6625323453, 1702953, 2489655967, 60365259, 9624029, 17529518, 08361477 #### [facility] (DEFAULT) [address] [place] [address] 42738 CNCOon 01-01-2018 CNCO Letter Text [facility] Kidney InstituteAlessio Gómez MDGenitourinary ReconstructionOffice: [phone]: [phone]: [phone] for SurgeryInstructions for: Marcos Pengki[address] [facility] [address]JKE# [id number] [facility] [place], [place] [address]I wish to prepare you and your family for your surgery scheduled on 04/04/18at the [facility]. My staff and I willattempt to make the experience for you and your family as comfortable andstress-free as possible.Information Required for Surgery:PreAnesthesia Consultation Clinic (P[facility]) AppointmentYou will be contacted by our PACC schedulers prior to your surgical visit.You may also directly contact the PACC schedulers at [phone] to scheduleyour PACC appointment. You have the option for your PACC testing at one ofour 14 locations. PACC schedulers will help you navigate to the location ofyour preference. On the day of your visit, please go to the lab and submit aurine sample for culture. If you live out of town, you may have yourpre-operative evaluation with your primary care physician The PACC schedulerswill ask for your physician?s name, phone number, and fax. Your PreAnesthesiaconsultation should be 2-3 weeks before surgery in case it is determined youalso need to see a specialist (e.g. library consultant, building maintenance engineer or anotherspecialist) prior to surgery.Please contact my office if you have been diagnosed with a new medicalcondition since your PreAnesthesia appointment, such as asthma, a heartcondition, a neurological condition, or any other medical condition so thatadditional medical clearance can be obtained prior to surgery. I will informyou if you require any additional diagnostic tests in preparation forsurgery.Medical Insurance: Please contact Customer Service at [phone] as soonas possible if your insurance company changes prior to surgery so that we maypreauthorize your surgery. Prior authorization is required in order toassure that your insurance company authorizes the surgical procedure. Ifyour insurance company requires referrals to specialists, please check thatall referrals are up-to-date prior to surgery. The surgery will need to bepostponed if my office does not have the current insurance information and anupdated referral at the time of prior authorization.Prior to Surgery:Please consult your physician about the safety of stopping the use of aspirin7 days prior to surgery. Aleve, Anaprox, Naproxen Sodium (Naprosyn), Pletal,Mobic should be stopped 4 days before surgery. Advil and Ibuprofen should bestopped 2 days before surgery. Tylenol is an acceptable alternative for mostpeople. Stop all herbal remedies (echinacea, Tomasz's Wort, Garlic, GingkoBiloba, Ginseng) one week before surgery. We also advise stopping allvitamins and supplements 7 days before surgery.Eating/Fasting Instructions Prior to Surgery: For your safety, you cannoteat or drink prior to surgery. Please follow these instructions:Solid foods ? stop after midnight prior to surgery. Do not smoke or eat anysolid foods. This includes gum, mints or candy.Liquids ? You may drink clear liquids up to 2 hours prior to your arrival [facility] [place]. This includes: Sprite, water, ai radha, black coffee,apple juice, chicken broth, Gatorade. You may take a shower withantibacterial soap and brush your teeth the morning of surgery.Medications ? The PreAnesthesia Consultation Clinic (P[facility]) will provide youwith instructions on what medications should be taken or withheld up to theday of surgery. This will occur at a visit or through a phone call if you donot go to PACC for an appointment.Time of Surgery:The operating room will contact you before 4:00PM the day before surgery(Saturday for surgery scheduled for Saturday). If the operating room has notcontacted you by 4:00PM the day before surgery, please call them at 4:00PM [phone] in order to obtain this information.Day of Surgery: You will be given a time to arrive 1.5 hours prior to the scheduled surgerytime. Diabetics: You will receive instructions from PACC how to manage yourdiabetes medicines including insulin. Let the staff know upon arrival thatyou have diabetes. Please bring your insulin and diabetic medications withyou the day of surgery. Hearing Aids, dentures, and glasses may be worn the morning of surgery butplease bring their cases so they can be safely stored during your surgery.Please do not wear contact lenses, make-up or jewelry, and leave othervaluables at home. Wear comfortable clothing. You will need to arrange for a friend or family member to drive you home by7 AM the morning after surgery if you are scheduled to stay overnight. If youare scheduled to be discharged the day of surgery, you will need a friend orfamily member to drive you home and we encourage you to have that person staywith you overnight.The ambulatory surgery center is located on the 3rd floor. Please check in att desk. Family and friends accompanying you are encouraged to stay withyou.Directions: Please use the Internet sites like [employer] orRoomish or [employer] ([employer]) if you require driving directions to [facility] ([address], [place] [address]).Please contact my office if you require further assistance.Again, my staff and I will attempt to make this experience as comfortable andstress-free as possible. Please do not hesitate to call my office at if you have any questions or concerns regarding your surgery.Sincerely yours,Alessio Gómez MD [facility] CNOVon 12-30-2017 CNOV Office Visit (UROLMN) ----MARCOS GONZALEZ ([id number]) 1955 MDate Time Provider Department12/30/17 1:30 PM ALESSIO GÓMEZ UROHERNAN During your visit today, we recorded the following information about you: Temperature Pulse Blood pressure 98.6 degrees 92/minute 168/97ogsalena Gómez MD 12/30/2017 2:31 PM [facility] PATIENT HISTORY AND PHYSICAL EXAMPATIENT INFO: Marcos Gonzalez 62 year oldREFERRING M.D.: Gerri Roque MD[address] [place], [place] [address]This consult was requested by Gerri Roque MD for an opinion regardingpeyronies disease, and my final recommendations will be communicated to [facility] care provider by way of the shared medical record forinternal providers or letter via the [employer] for externalproviders. HISTOR Y =====Chief Complaint: peyronie's diseaseHPI: 62 yo M with PMH of depression, previous Hep C, HTN, migraines, SC,nephrolithiasis, HLD who reports to clinic with CC of peyronie's. No voidingcomplaints. Able to have penetrative intercourse, self pleasure himself andable to ejaculate/orgasm. Concerned about the bulge in his distal shaft of hispenis and overall length of his penis.Onset of curvature: December 2014Degree of primary curvature: 31-45 degreesDirection of primary curvature:dorsalDegree of secondary curvature:N/A degreesDirection of secondary curvature: NAKnown or probable prior injury or buckling event: noPain with erections previously: noPain with erections in the past month: noED: Partial or insufficient erections deniesHinging or bending with erections: yesEstimated length lost off erections: 6 cmPrior therapies:noneIs the patient able to have intercourse? YIs the patient circumcised? circumcisedPersonal history of Dupuytren's contracture or Ledderhose's disease none =======MEDICATIONS:Current Outpatient Prescriptions:oxyCODONE-acet aminophen (PERCOCET) 5-325 mg ORAL per tablet take 1 to 4 tab perday as neededaspirin 325 mg ORAL tablet 1 tab per dayZOLOFT 100MG TABLET Take one(1) tablet daily.No current facility-administered medications for this visit.MEDICATION ALLERGIES:ALLERGIESNo Known AllergiesPAST MEDICAL HISTORYDiagnosis Date- Chronic hepatitis C without mention of hepatic coma- DDD (degenerative disc disease), lumbarPAST SURGICAL HISTORYProcedure Laterality Date- APPENDECTOMY- LAMINECTOMY,LUMBAR Laminectomy, lumbar fusion- PAST SURGICAL HISTORY OF trigger finger releaseFAMILY HISTORY:NEGATIVE: No related previous family history.FAMILY HISTORY 1st Degree Relative: no dupuytren's contracture of ledderhoseSocial History Marital status: Spouse name: Years of education: Number of children:Occupational HistoryOccupation Employer Comment [employer]*Social History Main Topics Smoking status: Never Smoker Smokeless status: Former User Alcohol use: No Drug use: NoREVIEW OF SYSTEMS:Constitutional: negativeEyes: negativeEar Nose and Throat: negativeCardiovascular: 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)Respiratory: negativeGastrointestinal: positive hep CMusculoskeletal: negativeIntegumentary: negativeNeurological: negativePsychiatric: positive depressionEndocrine: negativeHematologic/Lymphati c: negativeAllergic/Immunologic : negative PHYSICAL EXAM: =========There were no vitals taken for this visit.GENERAL: WNL nutrition, no deformities, healthy appearingHEAD ANDamp; NECK: NCATRESP: NL effort, no retractions or purse-lip breathing.CV: No extremity swelling, varices, edema, pallor, erythemaABDOMEN: soft, ntHERNIAS: NoneSKIN/LYMPH: No rash, lesionsNEURO/PSYCH: No signs of depression, anxiety, or agitationEXTREMITIES: wwpGENITOURINARY: MALE EXAM:No scrotal lesions, cysts, rashes.Epididymis ANDamp; testes: normal size, position, without massesUrethra ANDamp; meatus: normal size ANDamp; position w/o lesion or dischargePenis: circumcised, 2-3 cm plaque can be palpated in the distal right corporalbodyRectal Exam: Prostate: size (20-30grams), symmetrical, nontender, w/o nodules. MEDICAL DECISION MAKING: (A1) IMPRESSION: (Diagnostic Possibilities)New or Established1) Peyronie's disease(A2) PLAN: (Management Options)Counseled re: different Rx options including use of shockwave therapy,intralesional collagenase, tunical plication and placement of penile prosthesisfor peyronie's disease. Discussed with him extensively that his penile lengthwill not change despite any of the treatments. He is able to have penetrativesexual intercourse, however, is unable toElectronically signed STAFF NOTE: I evaluated the patient and personally participated in the keycomponents. I agree with the resident's findings and plan as documented andhave discussed the case and management of the patient's care with the resident.Patient states that his erections are 5 on a scale of 10 in terms of rigidityHe has lost considerable lengthExamination: Circumcised, there is a long narrow dorsal plaque in the proximaltwo thirds of the penisStretched penile length demonstrated and its significance discussed.Impression: Organic erectile dysfunctionAcquired curvature of the penis due to Peyronie's diseaseRecommendation: Inflatable penile prosthesis implantationThis patient has lost considerable length and he understands this procedurewill not restore that lost lengthWith the device inflated his erection will be approximately equal to hiscurrent stretched lengthSignature: Reza Basurto Date: 12/30/2017Service Time: 2:08 PMRecommended Treatments: IPPSHIMReferring Provider: GERRI ROQUE [[id number]]Allergies As of Date: 12/30/2017(No Known Allergies)Date Reviewed: 12/30/2017Reviewed by: Alessio Gómez - Fully AssessedPrimary Visit Diagnosis:ED (erectile dysfunction) of organic origin [N52.9] Other Visit Diagnoses:Screening for genitourinary condition [Z13.89] Peyronie's disease [N48.6]Order(s):UA CHEMSTRIP ONLY [SQUA] Order #: [id number] FUTURE UA CHEMSTRIP ONLY [SQUA] Order #: [id number]. #:[id number] scriptions as of 12/30/2017 Sig: LISINOPRIL 20 MG TABLET Take 20 mg by mouth once sophia* OXYCODONE-ACETAMINOPHEN 5 MG-* take 1 to 4 tab per day as ne* ASPIRIN 325 MG TABLET 1 tab per day ZOLOFT 100 MG TABLET Take one(1) tablet daily. ATORVASTATIN 40 MG TABLET PANTOPRAZOLE 40 MG TABLET,DEL* TIZANIDINE 4 MG TABLET Take 4 mg by mouth.Medication notes this encounter OXYCODONE-ACETAMINOPHEN 5 MG-325 MG TABLET >> Alessandra Chen 12/30/2017 1:10 PM >> ALESSANDRA CHEN Dec 30, 2017 1:10 PM Patient not taking. ATORVASTATIN 40 MG TABLET >> Alessandra Chen 12/30/2017 1:12 PM >> ALESSANDRA CHEN SatDec 30, 2017 1:12 PM Received from: External Pharmacy PANTOPRAZOLE 40 MG TABLET,DELAYED RELEASE >> Alessandra Chen 12/30/2017 1:12 PM >> ALESSANDRA CHEN SatDec 30, 2017 1:12 PM Received from: External Pharmacy TIZANIDINE 4 MG TABLET >> Alessandra Gume 12/30/2017 1:12 PM >> ALESSANDRA CHEN SatDec 30, 2017 1:12 PM Received from: [facility] Received Sig: Take 4 mg by mouthnightly.Problem List As Of Date 12/30/2017 Noted Resolved VIR HEP NEC W/O COMA W HEP C CHRON [B18.2] INVALID FOR* CIRRHOSIS OF LIVER NOS [K74.60] INVALID FOR* Acquired Spondylolisthesis [M43.10] INVALID FOR* DDD (Degenerative Disc Disease), Lumbar [M51.36]INVALID FOR* Lumbago [M54.5] INVALID FOR* ED (erectile dysfunction) of organic origin [N5*INVALID FOR* Peyronie's disease [N48.6] INVALID FOR*Letter TextApril 2017Roblloyd Roque MD[address] [place], [place] [address]Ixlw: Marcos Meyer No.: [id number] of Service: 12/30/2017Juanjose Roque:I had the pleasure of seeing your patient today. Enclosed is a copy of hisoffice visit note.Thank you for the opportunity of sharing in his care.Sincerely yours,ALCIDES Tovar/Coltsure: Office noteLetter TextApril 2017To Whom It May ConcernRe: Marcos Gonzalez CC #[id number] #[phone] 1955Dear Sirs / Madam:This patient has organic erectile dysfunction secondary to vascular diseaseand acquired curvature of the penis secondary to Peyronie's disease. We areplanning inflatable penile prosthesis implantation.Diagnosis: Organic erectile dysfunction (N52.8)Procedure: Inflatable penile prosthesis implantation ([id number])Sincerely yours,Alessio Gómez M.D.LENORE:Patriciaer Number: [id number] Status:Closed by ALESSIO GÓMEZ MD on 12/30/17 Normal [facility] [place] PROGRESSon 12-30-2017 PROGRESS HNO ID: [id number] thor: Alessio De La Torre: (none)Author Type: PhysicianType: Progress NotesFiled: 01/02/2018 11:07 AMNote Text:[facility] [place] PATIENT HISTORY AND PHYSICAL EXAMPATIENT INFO: Marcos Gonzalez 62 year oldREFERRING MMatiD.: Gerri Roque MD[address] [place], [place] [address]Bcmx consult was requested by Gerri Roque MD for an opinion regardingpeyronies disease, and my final recommendations will be communicated tothe requesting health care provider by way of the shared medical recordfor internal providers or letter via the [employer] forexternal providers. HISTORY======= Chi ef Complaint: peyronie's diseaseHPI: 62 yo M with PMH of depression, previous Hep C, HTN, migraines, SC,nephrolithiasis, HLD who reports to clinic with CC of peyronie's. Novoiding complaints. Able to have penetrative intercourse, self pleasurehimself and able to ejaculate/orgasm. Concerned about the bulge in hisdistal shaft of his penis and overall length of his penis.Onset of curvature: December 2014Degree of primary curvature: 31-45 degreesDirection of primary curvature:dorsalDegree of secondary curvature:N/A degreesDirection of secondary curvature: NAKnown or probable prior injury or buckling event: noPain with erections previously: noPain with erections in the past month: noED: Partial or insufficient erections deniesHinging or bending with erections: yesEstimated length lost off erections: 6 cmPrior therapies:noneIs the patient able to have intercourse? YIs the patient circumcised? circumcisedPersonal history of Dupuytren's contracture or Ledderhose's disease none =======MEDICATIONS:Current Outpatient Prescriptions:oxyCODONE-acet aminophen (PERCOCET) 5-325 mg ORAL per tablet take 1 to 4tab per day as neededaspirin 325 mg ORAL tablet 1 tab per dayZOLOFT 100MG TABLET Take one(1) tablet daily.No current facility-administered medications for this visit.MEDICATION ALLERGIES:ALLERGIESNo Known AllergiesPAST MEDICAL HISTORYDiagnosis Date- Chronic hepatitis C without mention of hepatic coma- DDD (degenerative disc disease), lumbarPAST SURGICAL HISTORYProcedure Laterality Date- APPENDECTOMY- LAMINECTOMY,LUMBAR Laminectomy, lumbar fusion- PAST SURGICAL HISTORY OF trigger finger releaseFAMILY HISTORY:NEGATIVE: No related previous family history.FAMILY HISTORY 1st Degree Relative: no dupuytren's contracture ofledderhoseSocial History Marital status: Spouse name: Years of education: Number of children:Occupational HistoryOccupation Employer Comment [employer]*Social History Main Topics Smoking status: Never Smoker Smokeless status: Former User Alcohol use: No Drug use: NoREVIEW OF SYSTEMS:Constitutional: negativeEyes: negativeEar Nose and Throat: negativeCardiovascular: 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)Respiratory: negativeGastrointestinal: positive hep CMusculoskeletal: negativeIntegumentary: negativeNeurological: negativePsychiatric: positive depressionEndocrine: negativeHematologic/Lymphati c: negativeAllergic/Immunologic : negative PHYSICAL EXAM: =========There were no vitals taken for this visit.GENERAL: WNL nutrition, no deformities, healthy appearingHEAD AND NECK: NCATRESP: NL effort, no retractions or purse-lip breathing.CV: No extremity swelling, varices, edema, pallor, erythemaABDOMEN: soft, ntHERNIAS: NoneSKIN/LYMPH: No rash, lesionsNEURO/PSYCH: No signs of depression, anxiety, or agitationEXTREMITIES: wwpGENITOURINARY: MALE EXAM:No scrotal lesions, cysts, rashes.Epididymis AND testes: normal size, position, without massesUrethra AND meatus: normal size AND position w/o lesion or dischargePenis: circumcised, 2-3 cm plaque can be palpated in the distal rightcorporal bodyRectal Exam: Prostate: size (20-30grams), symmetrical, nontender, w/onodules. MEDICAL DECISION MAKING: (A1) IMPRESSION: (Diagnostic Possibilities)New or Established1) Peyronie's disease(A2) PLAN: (Management Options)Counseled re: different Rx options including use of shockwave therapy,intralesional collagenase, tunical plication and placement of penileprosthesis for peyronie's disease. Discussed with him extensively that hispenile length will not change despite any of the treatments. He is able tohave penetrative sexual intercourse, however, is unable toElectronically signed STAFF NOTE: I evaluated the patient and personally participated in the keycomponents. I agree with the resident's findings and plan as documentedand have discussed the case and management of the patient's care with theresident.Patient states that his erections are 5 on a scale of 10 in terms ofrigidityHe has lost considerable lengthExamination: Circumcised, there is a long narrow dorsal plaque in theproximal two thirds of the penisStretched penile length demonstrated and its significance discussed.Impression: Organic erectile dysfunctionAcquired curvature of the penis due to Peyronie's diseaseRecommendation: Inflatable penile prosthesis implantationThis patient has lost considerable length and he understands thisprocedure will not restore that lost lengthWith the device inflated his erection will be approximately equal to hiscurrent stretched lengthSignature: Reza Basurto Date: 12/30/2017Service Time: 2:08 PMRecommended Treatments: IPPSHIM Normal [facility] Urinalysison 12-30-2017 Bilirubin, Urine Negative Normal Negative [facility] Comment on above: Performed By: #### U A ####[place] [address] [place] [phone] Comments SEE COMMENT Normal [facility] Comment on above: Result Comment: Micr oscopic not warranted Performed By: #### U A ####[place] [address] [address] [place] [phone] Hemoglobin mass conc (Bld) Negative Normal Negative [facility] Comment on above: Performed By: #### U A ####[place] [address] [address] [phone] Leukest Negative Normal Negative [facility] Comment on above: Performed By: #### U A ####[place] [address] [address] [place] [phone] pH of blood 5.0 [pH] Normal 4.5-8.0 [facility] Comment on above: Performed By: #### U A ####[place] [address] [address] [place] [phone] Protein, Urine Negative Normal Negative [facility] Comment on above: Performed By: #### U A ####[place] [address] [address] [place] [phone] Specific [place], Ur 1.011 Normal 1.005-1.030 [facility] Comment on above: Performed By: #### U A ####[place] [address] [address], [place] [phone] Urine [place] Comment SEE COMMENT [facility] Comment on above: Result Comment: N/A Performed By: #### U A ####[place] [address] [address] [place] [phone] Urine, clarity Clear Normal Clear [facility] Comment on above: Performed By: #### U A ####[facility] [facility], [place] [phone] Urine, color Yellow Normal Yellow [facility] Comment on above: Performed By: #### U A ####[facility] [facility], [place] [phone] Urine, glucose presence Negative Normal Negative [facility] Comment on above: Performed By: #### U A ####[place] [address], [place] [phone] Urine, ketones presence Negative Normal Negative [facility] Comment on above: Performed By: #### U A ####[place] [address] [facility], [place] [phone] Urine, nitrite presence Negative Normal Negative [facility] Comment on above: Performed By: #### U A ####[facility], [place] [phone] Urine, urobilinogen Normal Normal Normal [facility] Comment on above: Performed By: #### U A ####[place] [address] [address], [place] [phone] Vital Signs Date Time Vital Sign Value Performing Clinician Alexsandra mortensen 08-18-2024 14:04-0500 Blood Pressure Location Abdulaziz GORE [facility] [place] 08-18-2024 14:04-0500 Diastolic blood pressure 84 mm[Hg] Abdulaziz GORE [facility] [place] 08-18-2024 14:04-0500 Heart rate 72 /min Abdulaziz GORE [facility] [place] 08-18-2024 14:04-0500 Respiratory rate 16 /min Abdulaziz GORE [facility] [place] 08-18-2024 14:04-0500 Systolic blood pressure 142 mm[Hg] Abdulaziz NILL [facility] [place] 12-10-2023 15:00-0400 Blood Pressure Location Abdulaziz NILL [facility] [place] 12-10-2023 15:00-0400 Diastolic blood pressure 94 mm[Hg] Abdulaziz NILL [facility] [place] 12-10-2023 15:00-0400 Heart rate 66 /min Abdulaziz NILL [facility] [place] 12-10-2023 15:00-0400 Respiratory rate 16 /min Abdulaziz NILL [facility] [place] 12-10-2023 15:00-0400 Systolic blood pressure 178 mm[Hg] Abdulaziz NILL [facility] 11-13-2022 14:20-0500 Diastolic blood pressure 100 mm[Hg] Joe COOK [facility] 11-13-2022 14:20-0500 Mean blood pressure 131 mm[Hg] Joe COOK [facility] 11-13-2022 14:20-0500 Systolic blood pressure 194 mm[Hg] Joe COOK [facility] 11-13-2022 14:10-0500 Blood Pressure Location Joe COOK [facility] 11-13-2022 14:10-0500 Diastolic blood pressure 98 mm[Hg] Joe COOK [facility] 11-13-2022 14:10-0500 Heart rate 80 /min Joe COOK [facility] 11-13-2022 14:10-0500 Systolic blood pressure 185 mm[Hg] Joe MERCEDES [facility] 10-30-2022 13:42-0500 Blood Pressure Location Abdulaziz GORE [facility] [place] 10-30-2022 13:42-0500 Diastolic blood pressure 82 mm[Hg] Abdulaziz GORE [facility] [place] 10-30-2022 13:42-0500 Heart rate 70 /min Abdulaziz GORE [facility] [place] 10-30-2022 13:42-0500 Respiratory rate 16 /min Abdulaziz GORE [facility] [place] 10-30-2022 13:42-0500 Systolic blood pressure 136 mm[Hg] Abdulaziz GORE [facility] [place] Encounters Encounter Date Encounter Type Care Provider Facility Start: 08-18-2024 End: 08-18-2024 ambulatory Karen Hoy Facility:[facility] Start: 08-18-2024 End: 08-18-2024 Patient encounter procedure Abdulaziz GORE [facility] [place] Start: 12-10-2023 End: 12-10-2023 [facility]ulatory [facility] Start: 12-10-2023 End: 12-10-2023 Patient encounter procedure Abdulaziz GORE [facility] [place] [place] Start: 11-19-2023 End: 11-20-2023 ambulatory KAREN HOY Facility:[facility] Start: 12-05-[address] ABDULAZIZ GORE . Facil ity:[facility] Start: 11-13-2022 End: 11-13-2022 Patient encounter procedure Joe MERCEDES [facility] Start: 10-30-2022 End: 10-30-2022 Patient encounter procedure Abdulaziz GORE General Surgery [place]/[facility] [place] Start: 12-30-2017 End: 01-01-2018 Ambulatory DROGO Jud GÓMEZ [facility] [place] Procedures Date Procedure Procedure Detail Performing Clinician Anterior transpositi on of ulnar nerve Abdulaziz NILL Coronary artery bypa ss grafts x 3 Abdulaziz NILL Excision of lumbar intervertebral disc Abdulaziz NILL Comment on above: L4-L5 Immunizations Immunization Date Immunization Notes Care Provider Fa [facility] 08-11-2021 SARS-CoV-2 (COVID-19 ) mRNA-1273 vaccine Abdulaziz NILL [facility] 11-15-2020 SARS-CoV-2 (COVID-19 ) Ad26 vaccine, recombinant Abdulaziz ELIZAL [facility] 07-07-2020 influenza, unspecifi ed formulation [employer] [facility] 07-15-2019 influenza virus vaccine, unspecified formulation [employer] [facility] 06-10-2019 influenza, unspecifi ed formulation [employer] [facility] 10-15-2018 influenza virus vaccine, unspecified formulation [employer] [facility] 08-15-2017 influenza, unspecifi ed formulation [employer] [facility] NEGATED: Highlighted row has not occurred!10-30-2022 influenza virus vaccine, unspecified formulation [facility] Payers Date Payer Category Payer Unknown [id number] 1958 Self-pay [id number] 1955 Unknown [id number] 2.16.84 [id number] 1955 Unknown [id number] 2.16.8 [id number] 1955 Unknown [id number] 2.16.8 [id number] 1955 Unknown [id number] 2.16.8 [id number] Social History Date Type Detail Facility Start: 10-30-2022 End: 08-18-2024 Tobacco smoking status Never smoked tobacco (finding) [facility] [place] Tobacco smoking status Never Gener al [facility] [place] Sex Assigned At Male [facility] Functional Status Date Assessment Result Facility 08-18-2024 Functional Status N/A [facility] [place] 12-10-2023 Functional Status N/A [facility] 11-13-2022 Functional Status N/A [facility] 10-30-2022 Functional Status N/A [facility] Clinical Note 12-12-2023 Note Date & Type Note Facility 12-12-2023 Note Chief Complaint consultation for positive occult stool HPI Staff 68 year old male presents on consultation from Dr. David for positive occult stool. Denies abdominal or rectal pain. Reports occasional bright red blood per rectum with wiping. Denies change in bowel habits. Denies nausea or vomiting. No unexplained weight loss. Never had colonoscopy in the past. No known family history of colon cancer. History of Present Illness 68 yo male with h/o CAD, htn, referred for positive fecal occult blood; denies change in bms or gross blood in stools, no abd complaints; no abd operations or previous colonoscopy; on baby asa and Meloxicam daily; no tobacco use; no fmhx of GI malignancy or IBD. Review of Systems PHQ Score Initial Depression Screen Score: 0 SCORE ROS - Provider Constitutional: no fever, no sweats, no weight loss. Eyes: yes glasses, no blurred vision, no visual loss. ENMT: no dentures, no hoarseness, no swallowing difficulties, no hearing loss, no ear infection(s), no nose bleeds. Cardiovascular: normal blood pressure, no chest pain, regular heartbeat, no heart murmur. Respiratory: no shortness of breath, no cough, no asthma, no wheezing. Gastrointestinal: no nausea, no vomiting, no diarrhea, no constipation, no blood in stool, no change in bowel habits, no abdominal pain, no hepatitis. Genitourinary: no kidney stones, no urine infection, no dysuria. Musculoskeletal: no pain, no weakness. Skin: no changing moles, no rash, no skin lumps. Neurologic: no seizures, no epilepsy, no headache. Psychiatric: no emotional or psychiatric problem. Heme/Lymph: no bleeding problems, no anemia, no blood clots, no transfusions. Allergy/Immunologic: no swollen lymph nodes/glands, no IV drug abuse. Other: Additional ROS info: Except as noted in the above Review of Systems and in the History of Present Illness, all other systems have been reviewed and are negative or noncontributory. Physical Exam Vitals & Measurements HR: 66(Peripheral) RR: 16 BP: 178/94 HT: 66 in HT: 167 cm WT: 71.6 kg WT: 157.52 lb BMI: 25.67 HEENT: normal conjunctiva, sclera clear, no scleral icterus, EOM intact, PERRLA, oral mucosa moist without lesions. Neck: trachea midline, no mass, symmetric, no thyromegaly or nodules, no adenopathy Respiratory: lungs CTA, respirations non labored. Cardiovascular: regular rate and rhythm, no murmur, no pedal edema or varicosities. Gastrointestinal: soft, non distended, no tenderness, no masses, no palpable hernias, diastasis recti no, no hepatosplenomegaly; normal bs Lymphatic: no cervical adenopathy, no supraclavicular adenopathy. Musculoskeletal: normal gait, digits and nails without infection, nodes, cyanosis, clubbing. Skin: no rashes, no lesions, no ulcers, no subcutaneous nodules, induration. Psychiatric/Neuro: oriented to time, place, person, judgement normal, affect appropriate for age, insight intact, no focal deficits. Tests: labs reviewed,, review of old records completed , Discussed surgical options, risks, and possible complications with patient. Assessment/Plan 1. Positive fecal occult blood test (R19.5: Other fecal abnormalities) plan coloscopy under anesthesia for further evaluation, informed consent obtained. Follow-up No qualifying data available Problem List/Past Medical History Ongoing Abdominal pain, right lower quadrant BMI 25.0-25.9,adult BPH (benign prostatic hyperplasia) CAD (coronary artery disease) Cholelithiasis Elevated liver enzymes Epigastric pain Fecal occult blood test positive Hepatitis C History of myocardial infarction HTN (hypertension) Impotence Insomnia Low back pain syndrome Lower extremity edema Lumbar disc disease Narcotic abuse Overweight Paresthesia Positive fecal occult blood test Prostate nodule Shoulder impingement syndrome Historical No qualifying data Procedure/Surgical History Anterior transposition of ulnar nerve, CABG x 3 - Coronary artery bypass grafts x 3, Lumbar discectomy. Medications aspirin 81 mg Oral EC Tab, 81 mg= 1 tab(s), Oral, Daily atorvastatin 40 mg Tab, 40 mg= 1 tab(s), Oral, Daily Coreg 6.25 mg Tab, 6.25 mg= 1 tab(s), Oral, BID lisinopril 40 mg Tab, 40 mg= 1 tab(s), Oral, Daily meloxicam 7.5 mg Tab, 7.5 mg= 1 tab(s), Oral, Daily Pantoprazole [address] Tab, 40 mg= 1 tab(s), Oral, Daily Zoloft 100 mg Tab, 100 mg= 1 tab(s), Oral, Daily Allergies No Known Allergies No Known Medication Allergies Social History Alcohol Current, Beer, Daily, 10/30/2022 Substance Abuse Current, Marijuana, 3-5 times per week, 10/30/2022 Tobacco Never (less than 100 in lifetime) Tobacco Use:. Never Smokeless Tobacco Use:., 12/10/2023 Family History Brain tumor: Mother and Sister. Hypertension: Mother. Primary malignant neoplasm of lung: Father. Immunizations Vaccine Date Status Comments influenza virus vaccine, inactivated - Not Given Patient Refuses SARS-CoV-2 (COVID-19) mRNA-1273 (more content not included)... [facility] Comment on above: Result Comment: Elec tronically Signed By: BAO NOVA, Abdulaziz R\.br\Date and Time Signed: 12/12/23 08:58 EDT Hospital Discharge instructions 11-13-2022 Note Date & Type Note Facility 11-13-2022 Hospital Discharge instructions Patient Education 11/13/2022 14:31:03 Benign Prostatic Hyperplasia Benign Prostatic Hyperplasia Benign prostatic hyperplasia (BPH) is an enlarged prostate gland that is caused by the normal aging process and not by cancer. The prostate is a walnut-sized gland that is involved in the production of semen. It is located in front of the rectum and below the bladder. The bladder stores urine and the urethra is the tube that carries the urine out of the body. The prostate may get bigger as a man gets older. An enlarged prostate can press on the urethra. This can make it harder to pass urine. The build-up of urine in the bladder can cause infection. Back pressure and infection may progress to bladder damage and kidney (renal) failure. What are the causes? This condition is part of a normal aging process. However, not all men develop problems from this condition. If the prostate enlarges away from the urethra, urine flow will not be blocked. If it enlarges toward the urethra and compresses it, there will be problems passing urine. What increases the risk? This condition is more likely to develop in men over the age of 50 years. What are the signs or symptoms? Symptoms of this condition include: Getting up often during the night to urinate. Needing to urinate frequently during the day. Difficulty starting urine flow. Decrease in size and strength of your urine stream. Leaking (dribbling) after urinating. Inability to pass urine. This needs immediate treatment. Inability to completely empty your bladder. Pain when you pass urine. This is more common if there is also an infection. Urinary tract infection (UTI). How is this diagnosed? This condition is diagnosed based on your medical history, a physical exam, and your symptoms. Tests will also be done, such as: A post-void bladder scan. This measures any amount of urine that may remain in your bladder after you finish urinating. A digital rectal exam. In a rectal exam, your health care provider checks your prostate by putting a lubricated, gloved finger into your rectum to feel the back of your prostate gland. This exam detects the size of your gland and any abnormal lumps or growths. An exam of your urine (urinalysis). A prostate specific antigen (PSA) screening. This is a blood test used to screen for prostate cancer. An ultrasound. This test uses sound waves to electronically produce a picture of your prostate gland. Your health care provider may refer you to a specialist in kidney and prostate diseases (urologist). How is this treated? Once symptoms begin, your health care provider will monitor your condition (active surveillance or watchful waiting). Treatment for this condition will depend on the severity of your condition. Treatment may include: Observation and yearly exams. This may be the only treatment needed if your condition and symptoms are mild. Medicines to relieve your symptoms, including: ?Medicines to shrink the prostate. ?Medicines to relax the muscle of the prostate. Surgery in severe cases. Surgery may include: ?Prostatectomy. In this procedure, the prostate tissue is removed completely through an open incision or with a laparoscope or robotics. ?Transurethral resection of the prostate (TURP). In this procedure, a tool is inserted through the opening at the tip of the penis (urethra). It is used to cut away tissue of the inner core of the prostate. The pieces are removed through the same opening of the penis. This removes the blockage. ?Transurethral incision (TUIP). In this procedure, small cuts are made in the prostate. This lessens the prostate's pressure on the urethra. ?Transurethral microwave thermotherapy (TUMT). This procedure uses microwaves to create heat. The heat destroys and removes a small amount of prostate tissue. ?Transurethral needle ablation (TUNA). This procedure uses radio frequencies to destroy and remove a small amount of prostate tissue. ?Interstitial laser coagulation (ILC). This procedure uses a laser to destroy and remove a small amount of prostate tissue. ?Transurethral electrovaporization (TUVP). This procedure uses electrodes to destroy and remove a small amount of prostate tissue. ?Prostatic urethral lift. This procedure inserts an implant to push the lobes of the prostate away from the urethra. Follow these instructions at home: Take [id number] and prescription medicines only as told by your health care provider. Monitor your symptoms for any changes. Contact your health care provider with any changes. Avoid drinking large amounts of liquid before going to bed or out in public. Avoid or reduce how much caffeine or alcohol you drink. Give yourself time when you urinate. Keep all follow-up visits as told by your health care provider. This is important. Contact a health care provider if: You have unexplained back pain. Your symptoms do not get better with treatment. You develop side effects from the medicine you are taking. Your urine becomes very dark or has a bad smell. Your lower abdomen becomes distended and you have trouble passing your urine. Get help right away if: You have a fever or chills. You suddenly cannot urinate. You feel lightheaded, or very dizzy, or you faint. There are large amounts of blood or clots in the urine. Your urinary problems become hard to manage. You develop moderate to severe low back or flank pain. The flank is the side of your body between the ribs and the hip. These symptoms may represent a serious problem that is an emergency. Do not wait to see if the symptoms will go away. Get medical help right away. Call your local emergency services (911 in the [place] Do not drive yourself to the hospital. Summary Benign prostatic hyperplasia (BPH) is an enlarged prostate that is caused by the normal aging process and not by cancer. An enlarged prostate can press on the urethra. This can make it hard to pass urine. This condition is part of a normal aging process and is more likely to develop in men over the age of 50 years. Get help right away if you suddenly cannot urinate. This information is not intended to replace advice given to you by your health care provider. Make sure you discuss any questions you have with your health care provider. Document Released: 08/26/2006 Document Revised: 07/21/2019 Document Reviewed: 09/30/2017 [employer] Patient Education 2019 [place]. Follow Up Care 09/27/2022 10:53:29 With:Joe MERCEDES MD, URL Address: [address] [facility] [address] [place] [id number]- When:6 months Comments:w/ RITU [facility] Evaluation + Plan note Note Date & Type Note Facility Evaluation + Plan note Future Appointments Appointment Date:11/13/2022 02:00:00 PM Scheduled Provider:Joe MERCEDES MD Location:[facility] Appointment Type:URO New Patient General Surgery [place] Evaluation + Plan note Note Date & Type Note Facility Evaluation + Plan note Future Appointments Appointment Date:05/21/2023 01:45:00 PM Scheduled Provider:Joe MERCEDES MD Location:[facility] Appointment Type:URO Office Visit Diagnostic Tests PendingPSA Free & Total 11/13/22 [facility] course Narrative Note Date & Type Note Facility Hospital course Narrative No data available for this section [facility] [facility] Discharge instructions Note Date & Type Note Facility Hospital Discharge instructions No data available for this section [facility] [place] [facility] note Note Date & Type Note Facility Progress note No data available for this section General Surgery [place] Summary Purpose Family History No Family History Records FoundNo Family History Records Found No data available for this section No Family History Records FoundNo Family History Records Found No data available for this section Advance Directives No Advanced Directives Records FoundNo Advanced Directives Records FoundNo Advanced Directives Records FoundNo Advanced Directives Records Found Additional Source Comments (unrecognized sect ion and content) No Status Records FoundNo Status Records FoundNo Status Records FoundNo Status Records Found INFORMATION SOURCE (unrecogn ized section and content) DATE CREATED AUTHOR 02/27/2018 [facility] DATE CREATED AUTHOR AUTHOR'S ORGANIZ ATION 11/09/2022 [facility] DATE CREATED AUTHOR AUTHOR'S ORGANIZ ATION 12/19/2023 [facility] DATE CREATED AUTHOR AUTHOR'S ORGANIZ ATION 08/21/2024 [facility] Patient Care team informatio n (unrecognized section and content) Personnel Name: Karen David MD Address: Address: [address] [place] [address] Personnel Name: Karen David MD Address: Address: [address] [place] [address] Personnel Name: Karen David MD Address: Address: [address] [place] [address] Personnel Name: Karen David MD Address: Address: [address] [place] [address] FOR RECORDS PERTAINING TO PATIENTS WHO ARE OR HAVE BEEN ENROLLED IN A CHEMICAL DEPENDENCY/SUBSTANCEABUSE PROGRAM, SOME INFORMATION MAY BE OMITTED. This clinical summary was aggregated from multiple sources. Caution should be exercised in using it in the provision of clinical care. This summary normalizes information from multiple sources, and as a consequence, information in this document may materially change the coding, format and clinical context of patient data. In addition, data may be omitted in some cases. CLINICAL DECISIONS SHOULD BE BASED ON THE PRIMARY CLINICAL RECORDS. [facility] [employer] [facility]. provides no warranty or guarantee of the accuracy or completeness of information in this document.
== END 2024-09-08 12:07 | disposition home or self-care (01) ==
LOC: PST 12:06
PROVIDERS: PCP Family Medicine; Visit Provider Surgery
DX: R19.5 Other fecal abnormalities (principal)

== ENCOUNTER 2024-09-16 08:00 | Day surgery (SDC) | payer MEDICARE, SELFPAY ==
--- NOTE | 2024-09-16 | OP_ITS ---
OPERATION DATE: 09/16/2024 PREOPERATIVE DIAGNOSIS: Positive fecal occult blood test. POSTOPERATIVE DIAGNOSIS: Normal colonoscopy to cecum. PROCEDURE: Colonoscopy to cecum. SURGEON: Ashish Cervantes M.D. ANESTHESIA: Monitored anesthesia care. ESTIMATED BLOOD LOSS: Zero. INDICATIONS AND CONSENT: Patient is a 69-year-old male, presents for positive fecal occult blood test. Indications, risks, benefits, alternatives of proceeding with colonoscopy were explained extensively to the patient, including the risks of bleeding, colon perforation or anesthetic complications. All of his questions were answered. Informed consent was obtained. PROCEDURE: Patient brought to the operating room, placed in the left lateral decubitus position. Monitored anesthesia care was provided. Rectal exam was performed which showed no masses or blood. The scope was inserted into the anal canal. Under direct visualization was advanced. It was advanced to the cecum where cecal markings were clearly identified. Upon withdrawal of the scope, mucosal surfaces were carefully examined. There were no mass lesions or polyps. There was noted to be a good prep. There were no inflammatory changes or ulcerations. No significant diverticulosis. The scope was retroflexed in the anal canal. There were noted to be some prominent rectal veins. No evidence of rectal bleeding. The scope was then withdrawn. Patient tolerated procedure well, was sent to recovery room in good condition. f/u screening colonoscopy in 10 years. CC: French David M.D. MARY
[2024-09-16 08:15] VITALS: BP 160/113; PULSE 109; TEMP 36.3; O2SAT 99; BMI 23.0
[2024-09-16] MEDS: 0.9 % SODIUM CHLORIDE 500 ML 50 ML IV (08:31)
[2024-09-16 09:06] VITALS: BP 150/88
[2024-09-16 10:05] VITALS: BP 110/53; PULSE 82; TEMP 36.7; O2SAT 97
[2024-09-16 10:20] VITALS: BP 98/67; PULSE 80; O2SAT 96
[2024-09-16 10:35] VITALS: BP 116/72; PULSE 74; O2SAT 96
== END 2024-09-16 10:40 | disposition home or self-care (01) ==
PROVIDERS: PCP Family Medicine; Visit Provider Surgery
PROC: (CPT 45378; principal; 2024-09-16 09:00)
DX: R19.5 Other fecal abnormalities (principal); R10.31 Right lower quadrant pain; I25.10 Atherosclerotic heart disease of native coronary artery without angina pectoris; E78.00 Pure hypercholesterolemia, unspecified; K21.9 Gastro-esophageal reflux disease without esophagitis; M54.50 Low back pain, unspecified; B19.20 Unspecified viral hepatitis C without hepatic coma; Z79.82 Long term (current) use of aspirin; Z95.1 Presence of aortocoronary bypass graft
CPT/HCPCS: 45378; J2704

== ENCOUNTER 2025-05-27 10:20 | Outpatient (OUT) | payer MEDICARE, SELFPAY ==
--- OUTSIDE RECORDS SUMMARY | 2025-05-27 10:25 | XMS_ITS | Clinical Summary ---
Author Organization [facility] Address [address] [place] [address] Care Team Providers Care Electromechanic Name Role Phone French David MD Primary Care Provider [phone] Edmar Roque MD Unavailable [phone] Allergies No known active allergies Medications ZOLOFT 100MG TABLET Take one(1) tablet daily. 90 0 04/17/2004 Active oxyCODONE-acetam inophen (PERCOCET) 5-325 mg ORAL per tablet take 1 to 4 tab per day as needed Active aspirin 325 mg ORAL tablet 1 tab per day Active atorvastatin (LIPITOR) 40 mg tablet 1 12/01/[address] (PROTONIX) 40 mg tablet 1 12/27/2017 Active tiZANidine (ZANAFLEX) 4 mg tablet Take 4 mg by mouth. Active lisinopril (ZESTRIL) 20 mg tablet Take 20 mg by mouth once daily. Active Active Problems Problem Noted Date Diagnosed Date ED (erectile dysfunction) of organic origin 12/09 Peyronie's disease 12/30/2017 Lumbago 01/22/2010 Acquired spondylolisthesis 10/31/2009 DDD (degenerative disc disease), lumbar 10/31/19 10 Cirrhosis of liver without mention of alcohol Chronic hepatitis C without mention of hepatic c luis antonio 01/28/2003 Immunizations Immunization Administration Dates Next Due hepatitis A (HepA) vaccine, unspecified formulat ion 09/22/2003 Family History Medical History Relation Comments Cancer Father Heart Mother Hypertension Mother Cancer Sister 2 Relation Status Comments Father Mother Alive Sister 1 Sister 2 Social History Tobacco Use Types Packs/Day Years Used Date Smoking Tobacco: Never Smokeless Tobacco: Former Alcohol Use Standard Drinks/Week Comments No 0 (1 standard drink = 0.6 oz pur e alcohol) Area Deprivation Index Answer Date Alonzo rded National Score (1-100), lower number is lower ri sk Not on file 08/17/2020 State Score (1-10), lower number is lower risk N ot on file 08/17/2020 Data from: https://www.neighborhoodatlas.medicine.[facility]/. Last address used for calculation Not on file 08/17/2020 Sex and Gender Information Value Date Recorded Sex Assigned at Not on file Legal Sex Male 9:58 AM EST Gender Identity Not on file Sexual Orientation Not on file Occupation Industry Job Start Date Job End Date Not on file Not on file Not on file Not on file Last Filed Vital Signs Vital Sign Reading Time Taken Comments Blood Pressure 168/97 12/30/2017 1:13 PM EDT Pulse 92 12/30/2017 1:13 PM EDT Temperature 37 C (98.6 F) 12/30/2017 1:13 PM EDT Respiratory Rate 18 06/08/2011 8:08 AM EDT Oxygen Saturation 95% 08/18/2009 8:00 AM EST Inhaled Oxygen Concentration - - Weight 74.8 kg (165 lb) 10/18/2010 12:49 PM EST Height 167.6 cm (5' 6 ) 10/18/2010 12:49 PM EST Body Mass Index 26.63 10/18/2010 12:49 PM EST Plan of Treatment Health Maintenance Due Date Last Done Comments Anxiety Screening 02/11/1974 Depression Screening 02/11/1974 DTaP,Tdap,Td Vaccine (1 - Tdap) 02/11/1975 Lipid Screening 02/11/1991 CT Colonography 02/11/2001 Cologuard (FIT-DNA) 02/11/2001 Colonoscopy 02/11/2001 Colorectal Cancer Screening 02/11/2001 Fecal Occult Blood 02/11/2001 Sigmoidoscopy 02/11/2001 Pneumococcal Vaccine: 50+ (1 of 1 - PCV) 02/11/2006 Shingrix Vaccine (1 of 2) 02/11/2006 Diabetes Screening 08/10/2012 08/10/2009, 01/28/2003 Advance Directive Discussion 09/09/2024 Influenza Vaccine (#1) 2025 RSV Vaccine (1 - 1-dose 75+ series) 02/11/2031 Hepatitis C Screening Completed 12/07/2003 , 12/07/2003, 09/22/2003, Additional history exists Procedures Procedure Name Priority Date/Time Associated Diagnosis Comments COMPREHENSIVE METABOLIC PANEL Routine 08/10/2009 12:40 PM EST HEPATITIS C VIRUS (HCV) RNA, QUANTITATIVE PCR, PLASMA/SERUM Routine 12/07/2003 12:01 PM EST Vir Hep Nec W/O Coma W Hep C Chron from Last 3 Months or Most Recently Relevant to Health Maintenance Results * (ABNORMAL) COMP METABOLIC PANEL (08/10/2009 12:40 PM EST) Sodium 144 136 - 147 mmol/L [facility] Potassium 4.5 3.5 - 5.1 mmol/L [facility] Chloride 108 100 - 111 mmol/L [facility] CO2 26 23 - 33 mmol/L [facility] Glucose 99 65 - 100 mg/dL [facility] BUN 7 7 - 18 mg/dL [facility] Creatinine 0.87 0.6 - 1.3 mg/dL [facility] Protein, Total 8.1 6.4 - 8.4 g/dL [facility] Albumin 4.3 3.0 - 5.0 g/dL [facility] Calcium 9.4 8.8 - 10.5 mg/dL [facility] Alkaline Phosphatase 121 50 - 136 U/L [facility] Bilirubin, Total 0.3 0 - 1.0 mg/dL [facility] AST 46(H) 15 - 37 U/L [facility] ALT 75(H) 10 - 65 U/L [facility] Anion Gap 15 10 - 20 mmol/L [facility] Blood specimen (specimen) BLOOD SPECIMEN / Unknown 08/10/2009 12:40 PM EST 08/10/2009 2:13 PM EST [facility] Final Result [facility] [address] [id number] * HCV QUANT RNA BY PCR (12/07/2003 12:01 PM EST) HCV RNA by PCR 1,560,000 [facility] Comment: IU/mL The linear range of this assay is 600 IU/mL to 700,000 IU/mL. This test was developed and its performance characteristics determined by the [facility] of the [facility]. It has not been cleared or approved by the US Food and Drug Administration. The FDA has determined that such clearance or approval is not necessary. Blood specimen (specimen) BLOOD SPECIMEN / Unknown 12/07/2003 12:01 PM EST us Sindy Higuera MD LABORATORY Final Re sult [facility] [address] [place] [address] from Last 3 Months or Most Recently Relevant to Health Maintenance Insurance [facility] MEDICARE ADVANTAGE PPO Care Teams Electromechanic Relationship Specialty Start Date End Date French David MD [address] [place] [address] PCP - General 01/28/03 Edmar Roque MD [address] [address] Referring Urology 12/16/17
--- OUTSIDE RECORDS SUMMARY | 2025-05-27 10:25 | XMS_ITS | Clinical Summary ---
Author Organization [facility] Address [id number] [address] [place] [address] Care Team Providers Care Director Of Healthcare Systems Name Role Phone French David MD Primary Care Provider [phone] Allergies No known active allergies Medications pantoprazole (PROTONIX) 40 mg EC tablet Take 1 tablet (40 mg total) by mouth in the morning. Active atorvastatin (LIPITOR) 40 mg tablet Take 1 tablet (40 mg total) by mouth nightly. Active lisinopriL (PRINIVIL,ZESTR IL) 40 mg tablet Take 1 tablet (40 mg total) by mouth in the morning. 10/05/2024 Active sertraline (ZOLOFT) 100 mg tablet Take 1 tablet (100 mg total) by mouth in the morning. 09/28/2024 Active carvediloL (COREG) 6.25 mg tablet Take 1 tablet (6.25 mg total) by mouth in the morning and 1 tablet (6.25 mg total) in the evening. Take with meals. 10/05/2024 Active carisoprodoL (SOMA) 350 mg tablet Take 1 tablet (350 mg total) by mouth daily as needed for muscle spasms. Active piroxicam (FELDENE) 20 mg capsule Take 1 capsule (20 mg total) by mouth in the morning. 11/12/2024 Active Active Problems Problem Noted Date Diagnosed Date Hypotension 02/20/2017 ST elevation myocardial infarction (STEMI) of in ferior wall 02/13/2017 Cardiogenic shock 02/13/2017 Bradycardia, severe sinus 02/13/2017 STEMI (ST elevation myocardial infarction) 02/13 Family History Medical History Relation Name Comments Cancer Father Cancer Sister Relation Name Status Comments Father Mother Sister Social History Tobacco Use Types Packs/Day Years Used Date Smoking Tobacco: Never Smokeless Tobacco: Never Tobacco Cessation:Counseling Given: Not Answered Alcohol Use Standard Drinks/Week Comments Yes 24 (1 standard drink = 0.6 oz pu re alcohol) daily Childcare Answer Date Recorded Childcare Unknown 02/18/2019 Employment Answer Date Recorded Employment Unknown 02/18/2019 Hunger Screening Answer Date Recorded Within the past 12 months we worried whether our food would run out before we got money to buy more. Never True 12/01/2024 Within the past 12 months th e food we bought just didn't last and we didn't have money to get more. Never True 12/01/2024 Purpose - Life Answer Date Recorded Purpose and direction in life Unknown Sex and Gender Information Value Date Recorded Sex Assigned at Not on file Legal Sex Male 12:03 PM EDT Gender Identity Not on file Sexual Orientation Not on file Last Filed Vital Signs Vital Sign Reading Time Taken Comments Blood Pressure 160/84 12/01/2024 1:52 PM EDT Pulse 75 12/01/2024 1:52 PM EDT Temperature 36.6 C (97.9 F) 11/17/2024 11:19 AM EDT Respiratory Rate 14 11/17/2024 8:24 AM EDT Oxygen Saturation 95% 11/17/2024 12:25 PM EDT Inhaled Oxygen Concentration - - Weight 68.1 kg (150 lb 3.2 oz) 12/01/2024 1:52 P M EDT Height 167.6 cm (5' 6 ) 12/01/2024 1:52 PM EDT Body Mass Index 24.24 12/01/2024 1:52 PM EDT Plan of Treatment Health Maintenance Due Date Last Done Comments Depression Screening 1968 DTaP,Tdap and Td Vaccines (1 - Tdap) 02/11/1975 Zoster (Shingles) Vaccine (1 of 2) 02/11/2006 Fall Risk Screening 02/11/2021 COVID-19 Vaccine (3 - 2024-2 6 season) 2025 08/11/2021, 11/15/2020 Influenza Vaccine 05/10/2025 07/17/2024, , 07/15/2019, Additional history exists Adult BMI Screening 12/01/2025 12/01/2024 Tobacco Screening 12/02/2025 12/02/2024 Medical Devices Not on file Insurance [employer] Advance Directives * Full Code (Latest Code Status on File) Date Activated Date Inactivated Comments 02/13/2017 4:32 AM 02/18/2017 4:55 PM Care Teams Director Of Healthcare Systems Relationship Specialty Start Date End Date French David MD PCP - General 02/18/17
--- OUTSIDE RECORDS SUMMARY | 2025-05-27 10:25 | XMS_ITS | Encounter Summary ---
Author Organization [employer] Address [id number] [address] [place] [address] Care Team Providers Care Tieing Machine Operator Name Role Phone French David MD Primary Care Provider [phone] Encounter Details Date Type Department Care Team (Late st Contact Info) Description 11/11/2024 Telephone [facility] [address] [place] [id number] Laquita Roberts RMA Social History Tobacco Use Types Packs/Day Years Used Date Smoking Tobacco: Never Smokeless Tobacco: Never Alcohol Use Standard Drinks/Week Comments Yes 24 (1 standard drink = 0.6 oz pu re alcohol) daily Childcare Answer Date Recorded Childcare Unknown 02/18/2019 Employment Answer Date Recorded Employment Unknown 02/18/2019 Hunger Screening Answer Date Recorded Within the past 12 months we worried whether our food would run out before we got money to buy more. Never True 10/28/2024 Within the past 12 months th e food we bought just didn't last and we didn't have money to get more. Never True 10/28/2024 Purpose - Life Answer Date Recorded Purpose and direction in life Unknown Sex and Gender Information Value Date Recorded Sex Assigned at Not on file Legal Sex Male 12:03 PM EDT Gender Identity Not on file Sexual Orientation Not on file documented as of this encounter Miscellaneous Notes * Telephone Encounter - YARITZA Jesus - 11/11/2024 8:58 AM EST I called [employer] and left a message to call me BRANDEN about completing his medical clearance with his PCP. I faxed over the clearance on 10/28/24 and [facility] to get an office visit appointment per Laurie. The patient's surgery is scheduled on November 17, 2024. I left my phone number and extension on his voicemail if he had any questions - if not to just call his PCP to schedule an appointment. documented in this encounter Plan of Treatment Not on file documented as of this encounter Visit Diagnoses Not on filedocumented in this encounter Care Teams Tieing Machine Operator Relationship Specialty Start Date End Date French David MD PCP - General 02/18/17 documented as of this encounter
--- OUTSIDE RECORDS SUMMARY | 2025-05-27 10:25 | XMS_ITS | Clinical Summary ---
Author Organization [facility] Address [address] [place] [address] Care Team Providers Care Spine Supervisor Name Role Phone Unavailable Primary Care Provider Unavailabl e Social History Tobacco Use Types Packs/Day Years Used Date Smoking Tobacco: Never Assessed Sex and Gender Information Value Date Recorded Sex Assigned at Not on file Legal Sex Male 6:55 PM EDT Gender Identity Not on file Sexual Orientation Not on file Last Filed Vital Signs Vital Sign Reading Time Taken Comments Blood Pressure 147/87 01/28/2018 12:00 PM EDT Pulse - - Temperature - - Respiratory Rate - - Oxygen Saturation - - Inhaled Oxygen Concentration - - Weight 70.3 kg (155 lb) 01/28/2018 12:00 PM EDT Height 167.6 cm (5' 6 ) 01/28/2018 12:00 PM EDT Body Mass Index 25.02 01/28/2018 12:00 PM EDT Plan of Treatment Not on file Insurance [employer] ADVANTAGE
--- OUTSIDE RECORDS SUMMARY | 2025-05-27 10:27 | XMS_ITS | CCD ---
Author Organization [facility] Care Team Providers Care Forestry Extension Specialist Name Role Phone NORA GÓMEZYOVANY Renner Unavailable Unavailable GERRI ROQUE Unavailable Unavailable Karen David Primary Care Physician BILLY Thorne, DR CINTRON Attending Unavailable NILL ., DR CINTRON Admitting Unavailable Frankie, Karen Referring Unavailable Abdulaziz GORE Attending Unavailable Abdulaziz GORE Attending Unavailable Karen David Referring Unavailable Abdulaziz GORE Attending Unavailable Karen David MD Primary Care Provider [phone] JANNY DAVIDLAS M Referring Unavailable HOY, KAREN M Primary Care Unavailable JOSHUA PETERSON Attending Unavailable JOSHUA PETERSON Referring Unavailable HOY, KAREN M Primary Care Unavailable JOSHUA PETERSON Referring Unavailable HOY, KAREN M Primary Care Unavailable JOSHUA PETERSON Attending Unavailable JOSHUA PETERSON Referring Unavailable HOY, KAREN M Primary Care Unavailable ABDULAZIZ MCNAIR Admitting Unavailable ABDULAZIZ MCNAIR Attending Unavailable ABDULAZIZ MCNAIR Referring Unavailable HOY, KAREN M Primary Care Unavailable RAMILA RUBY Attending Unavailable HOY, KAREN M Primary Care Unavailable HOY, KAREN M Referring Unavailable HOY, KAREN M Primary Care Unavailable ABDULAZIZ MCNAIR Attending Unavailable HOY, KAREN M Referring Unavailable HOY, KAREN M Primary Care Unavailable JOSE RODRIGUEZ Attending Unavailable HOY, KAREN M Referring Unavailable HOY, KAREN M Primary Care Unavailable Karen David MD Primary Care Provider [phone] HOAdelaida, KAREN Primary Care Unavailable HOY, KAREN Primary Care Unavailable Urban, Lynne N Attending Unavailable Urban, Lynne N Admitting Unavailable FRANKIE KAREN Attending Unavailable HOY KAREN Admitting Unavailable HOY, KAREN Primary Care Unavailable Allergies Allergy Classification Reported Allergen(s) Allergy Type Date of Onset Reaction(s) Facility (1 source) No Known Medication Allergies; Translations: [No Known Medication Allergies] Propensity to adverse reactions (disorder) [facility] Repository Medications Current Medications Medication Drug Class(es) Dates Sig (Normalized) Sig (Original) aspirin 81 mg delayed release oral tablet (9 sources) Platelet Aggregation Inhibitor, Nonsteroidal Anti-inflammatory Drug Start: 10-19-2022 End: 10-28-2024 take 1 tablet by mouth once daily aspirin 81 mg Oral EC Tab 81 mg = 1 tab(s), Oral, Daily, Refills(s) 0 Start Date: 10/19/22 Status: Ordered atorvastatin 40 mg oral tablet (10 sources) HMG-CoA Reductase Inhibitor Start: 10-19-2022 End: 10-28-2024 take 1 tablet by mouth once daily atorvastatin 40 mg Tab 40 mg = 1 tab(s), Oral, Daily, Refills(s) 0 Start Date: 10/19/22 Status: Ordered carisoprodol 350 mg oral tablet (3 sources) Muscle Relaxant take 1 tablet by mouth once daily as needed for muscle spasms carisoprodoL (SOMA) 350 mg tablet Take 1 tablet (350 mg total) by mouth daily as needed for muscle spasms. Active carvedilol 6.25 mg oral tablet (5 sources) alpha-Adrenergic Sonia, beta-Adrenergic Snoia Start: 10-05-2024 take 1 tablet by mouth in the morning, then take 1 tablet by mouth at mealtime carvediloL (COREG) 6.25 mg tablet Take 1 tablet (6.25 mg total) by mouth in the morning and 1 tablet (6.25 mg total) in the evening. Take with meals. 10/05/2024 Active Start: 12-03-2023 take 1 tablet by aleksandar th twice daily Coreg 6.25 mg Tab 6.25 mg = 1 tab(s), Oral, BID, Refills(s) 0 Start Date: 12/03/23 Status: Ordered lisinopril 40 mg oral tablet (7 sources) Angiotensin Converting Enzyme Inhibitor Start: 10-05-2024 take 1 tablet by mouth in the morning lisinopriL (PRINIVIL,ZESTRIL) 40 mg tablet Take 1 tablet (40 mg total) by mouth in the morning. 10/05/2024 Active Start: 10-19-2022 take 1 tablet by aleksandar th once daily lisinopril 40 mg Tab 40 [...] pantoprazole 40 mg delayed release oral tablet (10 sources) Proton Pump Inhibitor Start: 10-19-2022 End: 10-28-2024 take 1 tablet by mouth once daily Pantoprazole [address] Tab 40 mg = 1 tab(s), Oral, Daily, Refills(s) 0 Start Date: 10/19/22 Status: Ordered piroxicam 20 mg oral capsule (1 source) Nonsteroidal Anti-inflammatory Drug Start: 11-12-2024 take 1 capsule by mouth in the morning piroxicam (FELDENE) 20 mg capsule Take 1 capsule (20 mg total) by mouth in the morning. 11/12/2024 Active sertraline 100 mg oral tablet (7 sources) Serotonin Reuptake Inhibitor Start: 09-28-2024 take 1 tablet by mouth in the morning sertraline (ZOLOFT) 100 mg tablet Take 1 tablet (100 mg total) by mouth in the morning. 09/28/2024 Active Start: 10-19-2022 take 1 tablet by aleksandar th once daily Zoloft 100 mg Tab 100 mg = 1 tab(s), Oral, Daily, Refills(s) 0 Start Date: 10/19/22 Status: Ordered tiZANidine 4 mg oral tablet (8 sources) Central alpha-2 Adrenergic Agonist Start: 10-19-2022 take 2 tablets by mouth at bedtime tiZANidine 4 mg Tab 8 mg = 2 tab(s), Oral, Bedtime, Refills(s) 0 Start Date: 10/19/22 Status: Ordered End: 11-02-2024 take 1 tablet by mouth once daily at bedtime tiZANidine (ZANAFLEX) 4 mg tablet Take 4 mg by mouth once daily at bedtime. 11/02/2024 Discontinued (Therapy completed) Completed/Discontinued Medications Medication Drug Class(es) Dates Sig (Normalized) Sig (Original) acetaminophen 325 mg / oxyCODONE hydrochloride 5 mg oral tablet (1 source) Opioid Agonist Start: 11-17-2024 End: 12-01-2024 oxyCODONE-acetamin ophen (PERCOCET) 5-325 mg per tablet Indications: Calculus of gallbladder with chronic cholecystitis without obstruction , Alcoholic cirrhosis of liver without ascites (CMS-HCC) Take 1 tablet by mouth every 6 (six) hours as needed for pain for up to 10 doses. Max Daily Amount: 4 tablets 10 tablet 11/17/2024 12/01/2024 Discontinued (Therapy completed) ARIPiprazole 15 mg oral tablet (4 sources) Atypical Antipsychotic End: 10-28-2024 take 1 tablet by mouth once daily ARIPiprazole (ABILIFY) 15 mg tablet Take 15 mg by mouth daily. 10/28/2024 Discontinued (Discontinued by another clinician) docusate sodium 50 mg / sennosides, correction 8.6 mg oral tablet (6 sources) End: 11-02-2024 take 2 tablets by mouth twice daily sennosides-docusat e sodium (SENNA WITH DOCUSATE SODIUM) 8.6-50 mg Take 2 tablets by mouth 2 (two) times a day. Hold for loose stools 11/02/2024 Discontinued (Therapy completed) metoprolol tartrate 100 mg oral tablet (3 sources) beta-Adrenergic Sonia End: 11-02-2024 take 1 tablet by mouth three times daily metoprolol tartrate (LOPRESSOR) 100 mg tablet Take 1 tablet (100 mg total) by mouth 3 (three) times a day. 11/02/2024 Discontinued (Therapy completed) oxyCODONE hydrochloride 5 mg oral tablet (2 sources) Opioid Agonist End: 10-28-2024 take 1 tablet by mouth every four hours as needed for pain oxyCODONE (ROXICODONE) 5 mg immediate release tablet Take 5 mg by mouth every 4 (four) hours as needed for pain (1-2 tabs). 10/28/2024 Discontinued (Patient Never Started This Medication) Problems Active Problems Problem Classification Problem Date Documented Da te Episodic/Chronic Abdominal pain (11 sources) Epigastric pain; Translations: [Epigastric pain] Onset: 10-30-2022 Episodic Acute myocardial infarction (13 sources) Myocardial infarction; Translations: [ST elevation (STEMI) myocardial infarction involving other coronary artery of inferior wall] Onset: 02-13-2017 02-13-2017 Chronic Alcohol-related disorders (1 source) Alcoholic cirrhosis of liver without ascites; Translations: [Alcoholic cirrhosis of liver without ascites] Onset: 11-17-2024 Chronic Biliary tract disease (9 sources) Cholelithiasis without obstruction; Translations: [Calculus of gallbladder without cholecystitis without obstruction] Onset: 10-30-2022 Episodic Coronary atherosclerosis and other heart disease (6 sources) Coronary arteriosclerosis; Translations: [History of myocardial infarction] 10-19-2022 Chronic Essential hypertension (7 sources) Hypertensive disorder; Translations: [Essential (primary) hypertension] Onset: 11-02-2024 10-19-2022 Chronic Hepatitis (7 sources) Viral hepatitis C; Translations: [Unspecified viral hepatitis C without hepatic coma] Onset: 11-02-2024 10-19-2022 Episodic Hyperplasia of prostate (10 sources) Benign prostatic hyperplasia; Translations: [Prostate nodule] Onset: 09-26-2022 10-19-2022 Chronic Other circulatory disease (1 source) H/O: heart disorder; Translations: [Personal history of other diseases of the circulatory system] 10-28-2024 Episodic Other circulatory disease (1 source) Personal history of other diseases of the circulatory system; Translations: [Personal history of other diseases of the circulatory system] Onset: 10-28-2024 Episodic Other connective tissue disease (4 sources) Impingement [...] codes; unclassified (4 sources) Insomnia 10-19-2022 Episodic Residual codes; unclassified (1 source) Acquired absence of other specified parts of digestive tract; Translations: [Acquired absence of other specified parts of digestive tract] Onset: 12-01-2024 Episodic Residual codes; unclassified (1 source) Pain, unspecified; Translations: [Pain, unspecified] Onset: 10-23-2024 Episodic Spondylosis; intervertebral disc disorders; other back problems (4 sources) Disorder of lumbar disc 10-19-2022 Chronic Spondylosis; intervertebral disc disorders; other back problems (4 sources) Low back pain 10-19-2022 Episodic Substance-related disorders (4 sources) Psychoactive substance abuse 10-19-2022 Chronic Unclassified (1 source) Unknown / UNK(Unknown) Onset: 12-30-2017 Unclassified (1 source) cholelithiasis, chronic cholecystitis Onset: 11-17-2024 Unclassified (1 source) Post-op Onset: 12-01-2024 Unclassified (1 source) Cholelithiasis Onset: 10-28-2024 Past or Other Problems Problem Classification Problem Date Documented Date Episodic/Chronic Cardiac dysrhythmias (4 sources) Severe sinus bradycardia; Translations: [Bradycardia, unspecified] Onset: 02-13-2017 02-13-2017 Episodic Other circulatory disease (4 sources) Low blood pressure; Translations: [Hypotension, unspecified] Onset: 02-20-2017 02-20-2017 Episodic Shock (7 sources) Cardiogenic shock; Translations: [Cardiogenic shock] Onset: 02-13-2017 02-13-2017 Episodic Unclassified (1 source) Preprocedural examination done 11-02-2024 Results Test Name Value Interpretation Reference Range Facility Coding Queryon 12-16-2024 Coding Query [id number] 12-15-2024 Coding Summary HTMLBase 64 EfbgmdsiAZf4oMs+PGhlYWQ+PE1 TKSVjM55ssVGduP1gK5OZHDgWWi onMQUJIFdSEoOjcbCsUB2ziNHfW XJu IC8+WX1aSCBuXlxxxAMku4O7mRW 7X23xuy8bOEpnsVS5RQBzUyVxdb bvh3zroRs2KNshPqxpCyFh NBJykM98DDC7lF49Nd38mLGzaZE xj2orfVi7KfKjPBDvIEF9vDrpMZ tsk0SsXHPrB47fzCKvc8T3 QYFviKdrhALlZdKlyBK9vK5hHLa dqqbvy1iutqdxSae2sk07wLDfy9 A6iIN6G8EomaM8TGNfrWMe NezijPMRuY7ipaoqs8kujgtlZbS eFSYoBGv7TOb2XZGqjTzdAoLaJN 11TAS5JVZsdxCqW5PoGPVl vUcqTbU0t8W9Fp5UD9WMQyxoC3U NTUFSWTwvdGQ+CH46xu92R4XkZj zyKlw2TWKmJDR2fAF3xR4l UXFtAHpjq4D8vXP3P5QbjrCpvy2 pk1agPWLjQQkyX46glSWde3F3LO YfdJQ1GMMypTrzMqSclO06 Oyc+KIYofXjwe7NeYsdpn6wej0y vjJs8WqmdKGNbzfSaeZcbVMW8n7 GlFr5hJSAoaAF0kJG9eS2h PjGnSzW5EMyyR276UkEonFNyJlm qA68yZ7LdbXW+LBVvBbx8HWQdiK ekSC7uR6GmGDRwalvymLPi nXlfKV9wBIAgvttwYBRflU7zGAP iH3n9EaXsZyC4DUaxY2KqEQVcud ysLj12pS0hFgDlWsV5AVui I0MlxcR3GLMehUKfVTbdVZF0K62 kv0U0NUBsUKUhKHR6fRZ1bG4cwM lnbjogbGVmdDsgdmVydGlj HGhuIRyoU770QTNbqTeaXiUdEOy uZyBEYXRlOiAgMDQvMDgvMjAyNT wvdGQ+JFGyNWH6rRbnFBXw vRIbGMqgOz9xfGctgQvhEJ6tLZS vyerjHLYoaX9jSGDlaHZqnKawHN 3vBYAfzmfia035QoUePCR3 KXHabOMkZ4NcjZ1jZyBeRCHiRZV lC7YnsSEvOXrmE997PDjnWsN2YK ErecKmQ5UyXIJscPqbYhM2 b8V3Gh6Ow9HrpvhkX5BlsUXwFkM eLlmrOSm0I6WdJphcoQS+PC90YW MtEW87QJi7HUF4iBbeLPxq AGZqQ9WnkN0aIwNqPRUmHPGlAhr +PHRhYmxlIHdpZHRoPScxMDAlJy TfkYjaMC9cSg7wNVWhNZTo bCxttLXzWqTwd7apYTRjABgjQO3 hqGboP2SciYM3OWWop2n4Bp09Y4 6yO6AxzLN+MDQdcTH0bGC2 mO2qWkKjPrI9QNakE812ObTkpQI tFwrko1daq2stvWf5YyC3XKBlbn OecJrpUDM6r6SuKw84M40m IHdpZHRoPSIxNSUiIHZhbGlnbj0 ttF5qQn1+JRUjkBW4iRR1dH1iVt JrKvB6XZarC556EgYjlHWs Cxwkp0unj4blgRh7IwBmVMHnzyF zmTpgCUF2f4JzYv17B8SggKxmt4 QgHul6lv03lBKbi8K5uIS2 F5VkYBFhwuorzMTghUleUE0vSBT zhqgeCUVgpD7uCTEoG9g8RkZxAp R6UEffY3TcmhX5GDGpyDDb PYXzvUXWfO9krrpbn9khwpywLkA nNSPlCVa4VBc4FMPheTsbPfLvST A7YpZ2PVT8lFButN4nmBnv ipfnlK1eQqz+BTF5nZEjdTZHJW1 lOjwvdGQ+HORnFJO7tFhcNKcqUK AdbS7oCDGtT9k0HjLoTeT9 WQgxP9PcnbS0GWPfwIDyFKVblRS FwT6bgcqkj9qslwauScUeZWAhZW s1FWj3ZRNngEtxRfDrALU9 QcA8VSW8oIUwuL0wjRckemjzlC4 wOyc+RtocwGxaDJN6UDr8B3EnQv i6JFAahQeqWZ4whRJzTDtv Oh8cdAueiEraZT6zZUAampwnm90 7OoUxn6kaZQMkvFEqSArgYDR7K1 4ds7S4LEFgWEPzBIK7wCR0 mO8xfKnpqczaxQXxbLkwphYaxLp bWWcqREvyD062PAIbdBvbXkBwUW e8K5YcFed0RBNrkIknAB8k bTNnDGglXn3mgDvzpRieUO0lFJO idhcxy138NfYvr0jsMNGhzXOwOV gdQLZ6Z38em2G2UAByQHZj NCM3qRU5aT8gzUumifldmLPsqJl rdqEdcSpmIVrpYTzkE650XURriG ovLvZsdDi9P6GnChr0CDMr aPxmTR4fuWNdVPkyWg9ilJzlbJd wXW9dSBXrhgbof074LhJvf6ymNA EhdUFsFNzoRJP8L15ki5F1 XLInJMIoCLN9lVP6qO7irOpksff gbGVmdDsgdmVydGljYWwtYWxpZ2 46IHRvcDsnPlBhdGllbnQg WRmiPEi9N2YqDlahyPP+PM95RZG xYO72ySRagUGfe7degDk9JpJgLR InAJB0cLylKHccj7PvYXGe Y31nxNXhm5N8SDBnwIpawZVcShY iaPN8jV7dWZbhoqdlz5aqvkojFo cvr6pvsk44kR60Z13aTGbf URSfMPDoXQMlUBNzoFhjsq2rbW8 wIi8+NGFiaYW4yTD0hK1uICLeXs C2YWmtV221AmOjmOXwRtys y2sie4frnDp6GrP9VHNpxjFqpFa nMJT4h5LaGn51O20pCRrkYIAnCF QsLYZrIABgfOpvrs9nfW6d Ii8+RFVgnXB6lQI4tZ6uHlYhTmC 7WHqxT918TqXslDKhXkrxS44bR9 JvdXA+FUTbGte6YDRwcErb UX6adWOjPGeoYd7bCLI4TmFtRkA tGXpkR7RhACHljwjydipffXV4NK AxFMKynT33Br2qyJjlWAOk kJROwB1goacml5pxzgavJyNlACN eDCp4HWn8ZRXfnEqsOnGtRDS6Av R5KQQ2tFAhyU9grVupwupq kF3jH5ZjKWGbjcwqWf82bJ0gDwG gSsY0GGscQxs+V87YK8wfWS0EIo oaWj2KSPGSJZ81MZ35xUTp v0K3qNI0N8JiRYObqilauuqweFA 9YMHgCNDydB39nTTdKRmzTf3ck7 Y1e882OMAnJDHvhE71By4c fVbmFSJpkNLPlP5clsecx7qsuzj nRqOfYOAkRBy3JRe9NZTxrNweEe RvIMH8LfV4TTX7cTVqwW1q pGmhcowryY4uLdk+MDYvMDUvMTk 1NjwvdGQ+HJUtTTH0eAshNJdvSS TxbP5eFJYdL1v5XcUtHfT4 UAgcL0SwKEYpsgidMf27gI5qWcK rJrQ0LPjfO4LzabK5LYNdrFTeIS zzHAC2G54zx1Y7NTZmTVRx MIT1aCQ8nI8qkWyronxvjIMsrXh qqdLtqCtiWIksJGjgR053WCYifW osNdI1SDltGSHtCH06VI41 hHGav5Y0rTQ7Q6YyTKCimgofwwk evYH1WTWgHWPxwS38bOUeIRihOb 6ic0V3s124TPLeKUIjvC26 Eq3lwQqcFWFptLOGlB7mbockf2i zegwyPgZoZZWnIPj7UHn8UHLnkF nzEqCwRBO8AcV6FXU4bCYi rQ0ksKbilobutL1qIps+TUFMRTw vdGQ+YIMrYJB5aYllVFzxIPNweU 8xMCPgL6c6LoXpZgK2CEcu L7VlHTInjhdaNi06gE7xCgRzHjD 0HQeqW2IromT0YGNqbLJpWRnwDD J6M11do0V1MVXuFYLxOFB1 yYM8pU0tkWncghtkqZQyxHtfhaR efMgfMNxlMJhjD257CWGphTfvZr 4QSF93KQ33N0EdSenosLVk bGU+PHRhYmxlIHdpZHRoPScxMDA tVuXqfYldIT1gBl6jBXXbNFEyxC abqEQcNwVgd2ixVOYiIBmg LJ3ppWeyS7BncJE3DSQyk6z8Pa6 4O52uU0StzYS+SCKnfJG3jTS4vX 6jYtQxDpZ4AZjhQ326SxZa zFMaCrmuo1iub2rktKl5HuTqGIF eluUazSwoONY9t9NwSh27F87zRL dpZHRoPSIyMCUiIHZhbGln ya7kqM8pSh4+JOJmkUH3pTG7oG9 jWvCzTsS2TSiwI164GiCztEZiRs nmT95qW8WmwIB+PHRyPjx0 PQUusAmzAS3chLWeFSdnKw4yLCF 7IeUgRaEwQHfrB3KpTIYusxzpgw pzaGA4KGWaHNYghD25Zs2u rZbfIj4iIJVhVYL0ORMteBCwH4X ozP0sWePiSXFzPFHvU9VaiFHlNB fyA293UTtmLsX2COBkbfPg B2HmUHOulHupTtG3k8Q6Sh6DmQr zvHNyXL4mVpMiNWa0G8XgYcw5CQ ZzvTbpCU5hyZYhNBkkMg4w dLvqsVseTE1xWSFelovcm280WlW pq2vsLIJshLMbBVbjAQX5A72nz6 R2PEJmCPVkNDL6cXA5tY3r bGlnbjogbGVmdDsgdmVydGljYWw sRLyeW779FREeuIqyMpTUIgs7G8 LnUzt7KNRrnWljXV7hiNUs KTfoWh6svWujmQhpXF9hJLZbvck qn574PoLzt3otQMDmxVOkPTrkZK Q7G00xp6O0MUBxNZBgSXL0 xNO5bM6etPzxwanxyQJopGwheaQ iuDokWIaoTCnoN765RNRgjCihAw 7QFhc6I0BmKho1CSNetFwk AQ9rxOItVFqmUl4hvTguqRwrSB5 eVVXcyhhxf799KwLhf6gbAXHzeG AaNHirLOC6I70kl7K7DSOk CBNsVLB8nVI0gS3jaBbqzddrpOX pdIpnjePxvBzeYNefIJwlG660CW RvcDsnPlBheWVyOjwvdGQ+ JP95zd74T8LnPmkyRcu4DNNtTCD 0uHP6fN5yXJDpFBxqp0N1mYH2J5 RidnHepu3qg9jkYSLpJOhs Y29 (more content not included)... Normal [facility] Hemogram Standardon 12-04-19 Erythrocyte distribution width (RBC) [Ratio] 14.7 % Normal 11.5-15.0 [facility] Comment on above: Performed By: #### 1 [id number] #### [facility] (DEFAULT) [address] [place] [address]85 Hematocrit (Bld) [Volume fraction] 32.4 % Low 34.8-51.9 [facility] Comment on above: Performed By: #### 1 [id number] #### [facility] (DEFAULT) [address] [place] [address] 87355 Hemoglobin (Bld) [Mass/Vol] 10.9 g/dL Low 11.8-17.7 [facility] Comment on above: Performed By: #### 1 [id number] #### [facility] (DEFAULT) [address] [place] [address] 45287 MCH (RBC) [Entitic mass] 32 pg Normal 24-34 [facility] Comment on above: Performed By: #### 1 [id number] #### [facility] (DEFAULT) [address] [place] [address] 54813 MCHC (RBC) [Mass/Vol] 34 g/dL Normal 26-37 [facility] Comment on above: Performed By: #### 1 [id number] #### [facility] (DEFAULT) [address] [place] [address] 35202 MCV (RBC) [Entitic vol] 95 fL Normal 81-100 [facility] Comment on above: Performed By: #### 1 [id number] #### [facility] (DEFAULT) [address] [place] [address] 77554 Platelet 117 x10 Low 138-427 [facility] Comment on above: Performed By: #### 1 [id number] #### [facility] (DEFAULT) [address] [place] [address] 48843 Platelet mean volume (Bld) [Entitic vol] 8.2 fL Normal 6.3-10.2 [facility] Comment on above: Performed By: #### 1 [id number] #### [facility] (DEFAULT) [address] [place] [address] RBC 3.40 x10 Low 3.70-5.30 [facility] Comment on above: Performed By: #### 1 [id number] #### [facility] (DEFAULT) [address] [place] [address] WBC 5.2 x10 Normal 3.5-10.5 [facility] Comment on above: Performed By: #### 1 [id number] #### [facility] (DEFAULT) [address] [place] [address] Provider Orderson 12-03-2024 Provider Orders [id number] Normal [facility] Surgical Pathologyon 025 Surgical Pathology Normal [facility] Comment on above: Result Comment: [facility] [address] [place] [address] Surgical Pathology Consultation Patient Name:MARCOS GONZALEZ:1955 (Age: 69)Gender:MTaken:11/17/2024Reported:11/23/2024Physician(s):Abdulaziz Mcnair D.O. ([phone])Copy To: Rec. #:[id number]: #[id number] Final Pathologic Diagnosis Gallbladder; cholecystectomy: Mild chronic cholecystitis with cholelithiasis. Report Electronically Signed Out wak/11/23/2024Srinivasan Harper MD Interpretation performed at [facility], [address] [place] [address], License number: [id number]. Clinical History Cholelithiasis, chronic cholecystitis. Gross Description Received in formalin labeled CARLOS, gallbladder is an intact gallbladder, 3.5 x 2.5 x 2 cm. The cystic duct is marked with a clamp, which is removed and the resection margin is shaved. The serosa is nichole-guan smooth and glistening and the opposing hepatic bed is nichole-brown roughened and cauterized. The gallbladder is opened to reveal scant green bile and a black solid to semi-friable gallstone, 2 cm in greatest dimension. The gallbladder mucosa is green and velvety. Iphone Developer sections are submitted in a single cassette to include the shaved cystic duct, a sales representative public utilities section of the gallbladder neck body and fundus. (1,ss,[id number], m2) TB tgb/11/18/2024NSK Specimen(s) Received Gallbladder Fee Codes(s): 1; 27303 APTTon 11-02-2024 aPTT Coag (PPP) [Time] 27 s [facility] Comment on above: NEW REFERENCE RANGE ECG 12 leadon 11-02-2024 TRACEMASTERVUE [facility] LIVER PANELon 11-02-2024 Albumin [Mass/Vol] 4.3 g/dL Normal 3.2-5.3 [facility] Comment on above: Performed By: #### P INR, 18621-8 #### [facility] ([id number]) [address] [place] [address] #### LIVR #### [facility] ([id number]) [address], [address] [place] [address] ALP [Catalytic activity/Vol] 60 U/L Normal 39-130 [facility] Comment on above: Performed By: #### P INR, 19247-5 #### [facility] ([id number]) [address] [place] [address] #### LIVR #### [facility] ([id number]) [address], [address] [place] [address] ALT [Catalytic activity/Vol] 42 U/L High 0-40 [facility] Comment on above: Performed By: #### P INR, 43293-4 #### [facility] ([id number]) [address] [place] [address] #### LIVR #### [facility] ([id number]) [address] [place] [address] AST [Catalytic activity/Vol] 47 U/L High 0-41 [facility] Comment on above: Performed By: #### P INR, 63140-1 #### [facility] ([id number]) [address] [place] [address] #### LIVR #### [facility] ([id number]) [address], [address] [place] [address] Bilirubin [Mass/Vol] 0.5 mg/dL Normal 0.3-1.2 [facility] Comment on above: Performed By: #### P INR, 22864-5 #### [facility] ([id number]) [address] [place] [address] #### LIVR #### [facility] ([id number]) [address], [address] [place] [address] Bilirubin.direct [Mass/Vol] 0.1 mg/dL Normal 0.0-0.4 [facility] Comment on above: Performed By: #### P INR, 80809-9 #### [facility] ([id number]) [address] [place] [address] #### LIVR #### [facility] ([id number]) [address], [address] [place] [address] Protein [Mass/Vol] 7.6 g/dL Normal 6.0-8.0 [facility] Comment on above: Performed By: #### P INR, 77115-1 #### [facility] ([id number]) [address] [place] [address] #### LIVR #### [facility] ([id number]) [address], [address] [place] [address] Liver panelon 11-02-2024 Albumin [Mass/Vol] 4.3 g/dL 3.2 - 5.3 g/dL [facility] ALP [Catalytic activity/Vol] 60 U/L 39 - 130 U/L [facility] ALT No additional P-5'-P [Catalytic activity/Vol] 42 U/L High 0 - 40 U/L [facility] AST [Catalytic activity/Vol] 47 U/L High 0 - 41 U/L [facility] Bilirubin [Mass/Vol] 0.5 mg/dL 0.3 - 1.2 mg/dL [facility] Bilirubin.direct [Mass/Vol] 0.1 mg/dL 0.0 - 0.4 mg/dL [facility] Interpretation and review of laboratory results Abnormal [facility] Protein [Mass/Vol] 7.6 g/dL 6.0 - 8.0 g/dL [facility] No Panel Informationon 11-02 [facility] PROTIME AND INRon 11-02-2024 INR Coag (PPP) [Relative time] 1.0 {INR} Normal 0.9-1.2 [facility] Comment on above: Performed By: #### P INR, 02025-2 #### [facility] ([id number]) [address] [place] [address] #### LIVR #### [facility] ([id number]) [address], [address] [place] [address] PT Coag (PPP) [Time] 11.7 s Normal 9.8-13.2 [facility] Comment on above: Result Comment: NEW REFERENCE RANGE Performed By: #### P INR, 38515-0 #### [facility] ([id number]) [address] [place] [address] #### LIVR #### [facility] ([id number]) [address] [place] [address] Protime & INRon 11-02-2024 INR Coag (PPP) [Relative time] 1 {INR} [facility] PT Coag (PPP) [Time] 11.7 s [facility] Comment on above: NEW REFERENCE RANGE XR CHEST 2 VWSon 11-02-2024 XR CHEST 2 VWS XR CHEST 2 VWS EXAM: XR CHEST 2 VWS CLINICAL INFORMATION: Hepatitis C virus infection without hepatic coma, unspecified chronicity; Preop examination; Hypertension, unspecified type; Cardiogenic shock (CMS-HCC); ST elevation myocardial infarction (STEMI) of inferior wall (CMS-HCC); ST elevation myocardial infarction (STEMI), unspecified artery (CMS-HCC). COMPARISON: 02/15/2017 FINDINGS: There are no pleural effusions. The lungs are clear and well aerated. Heart size is within normal limits. The patient is status post previous sternotomy. IMPRESSION: 1. No acute cardiopulmonary disease. Finalized by Jacky Brothers MD on 11/02/2024 9:34 PM Normal [facility] XR Chest PA and Lateralon EXAM: XR CHEST 2 VWS CLINICAL INFORMATION: Hepatitis C virus infection without hepatic coma, unspecified chronicity; Preop examination; Hypertension, unspecified type; Cardiogenic shock (CMS-HCC); ST elevation myocardial infarction (STEMI) of inferior wall (CMS-HCC); ST elevation myocardial infarction (STEMI), unspecified artery (CMS-HCC). COMPARISON: 02/15/2017 FINDINGS: There are no pleural effusions. The lungs are clear and well aerated. Heart size is within normal limits. The patient is status post previous sternotomy. IMPRESSION: 1. No acute cardiopulmonary disease. Finalized by Jacky Brothers MD on 11/02/2024 9:34 PM [facility] Jacky Brothers MD - EXAM: XR CHEST 2 VWS CLINICAL INFORMATION: Hepatitis C virus infection without hepatic coma, unspecified chronicity; Preop examination; Hypertension, unspecified type; Cardiogenic shock (CMS-HCC); ST elevation myocardial infarction (STEMI) of inferior wall (CMS-HCC); ST elevation myocardial infarction (STEMI), unspecified artery (CMS-HCC). COMPARISON: 02/15/2017 FINDINGS: There are no pleural effusions. The lungs are clear and well aerated. Heart size is within normal limits. The patient is status post previous sternotomy. IMPRESSION: 1. No acute cardiopulmonary disease. Finalized by Jacky Brothers MD on 11/02/2024 9:34 PM [facility] Study observation (narrative) [facility] XR Chest PA and LateralOrder ed By: Jacky Brothers on 11-02-2024 [facility] Work Phone: aPTT Coag (PPP) [Time]on aPTT Coag (Bld) [Time] 27 s Normal 26-37 [facility] Comment on above: Result Comment: NEW REFERENCE RANGE Performed By: #### P INR, 96550-9 #### [facility] ([id number]) [address] [place] [address], [place] [address] #### LIVR #### [facility] ([id number]) [address] [place] [address], [address] [place] [address] Coding Summaryon 10-28-2024 Coding Summary HTMLBase 64 MsrngqkdHDm4sPf+PGhlYWQ+PE1 XARIfS37fvMNnhL5fS1TLIOjRAs wwHRTYHVlJFfFwbrQpGN1rgIRlV XJu IC8+KG2zUPJxUbtofWMzr3P7yKU 0I17ktd6pTDbjvJY4BSCpVmDdey ofe8gskCe2MEahIeroRsVv VLHnzC13TEP6fA24Sy63fPNcdLJ xm1nxsJe1OfHnAVWoQFN4lCvkRC owm4CcQAXmT87rnZLby9Z7 WDDnyKvbgYHrZzUldUQ5mT9lRNa sqttrn9rkmihaTqr4sg25cQZfl1 O2rGV4M9NhfrD3UKLwvMKr GlhwqJGWqV5grexvm0fxbjirTkC vSSMbYOo7EDl7NDWcbFvnCzGwDB 36VAN7AVEdloLuO4QjAGAh vMuoWnU2u6Z8Ge9GN3NAIryyJ7W NTUFSWTwvdGQ+LS52mo34K3CkIo nsRkn7RKTlPYR4iDU9kG5l CKImFYwha5L2aNS2B0NyzyRrnu1 kg0bpYCXhHQbtZ33xqHUjw8O7GU UmvQW5CKGmlThfFhZwkG77 Oyc+VCRzqYfni7YpCbfsh8wam5z diVt7EewkINDxroIhjSgxFDF3t8 GtXd7mTLQksXT4kPJ3zA3x TvZsCiW8PYcqZ540JtIxfGGhGfs fJ39nR4LomZN+MDJwPfp0UFKsiZ pfBR7nE1KnODWznqhllETk jRfvSJ9mZXOulmceWFFqlQ8iPLL dH0c0VbInZsC3YYhcZ4AdQBIjpe ubLi98lK5wScXyLgA9TGda D2PdleY5ATDctEFdXZocFOR6V64 bk9C8WZCpLSUzQMC7bWN9xF3aoW lnbjogbGVmdDsgdmVydGlj QPnpPTauT311GNXttLrqVbOxDWv uZyBEYXRlOiAgMDIvMTkvMjAyNT wvdGQ+TKAyWJB4aGsaANKw xGRgJJnsZw3clRnlcBxhRE4bVGE dodrbYEIfyY2bQSBhaQZapLzmNX 3jHSKsnbhaf939ElQiMLJ9 ZTCkzXJrS0LnvV9lOvZrFKVbRCU yS1DljOPpJVywL576VPsgWfU9EO UnzsGfF6BcRUCigAsxJlT0 q3A2Bm3Sp6BxfhkxL6YmnXZaZgJ uNdkmSXz5F5MeOnxygWL+PC90YW AcFL52MBb2VFP8nRtcKNip KKBfF7UpzY1jMtFjHQGkRITyQac +PHRhYmxlIHdpZHRoPScxMDAlJy YcfFgdPD1gXf6dINJjLAAi mSbpmCQzPrKbe9obHOUdCUouMH4 asErxD7TchLA4SLBfl0q3Up86K8 9iP5LwlZG+LYSfwDR2fLV4 yN9yXzCxWaN6COitI413UxLsqQO zFntwp5jpo1gdxYm4DmM3ZDAjey HlrSyyTAW8o5QzCn02P88u IHdpZHRoPSIxNSUiIHZhbGlnbj0 cjM2rLz8+ZJFgnKG8hNZ4eX3pVa IyZlF2MBvnG714JuMypBTf Vahpv0igb9wgxMr3AwLgVUTzpaZ tsXyvEFO3y3EuHa57I9XcuQpjo7 EvDsi0bo99kFWuc1K5lEH5 D5TtZSUyljhmcCDzyMraMF9pOQX fymzyXBJwvV7hEQWoF4v5EzXqNo S2BGjiE3NzcsD3BMYtyHTt NSYllFEWhH2ygcgcu6qlbgleNzJ bQMQcERy5UZo4OXUqmOmdAuHzSF R3AdL0KGP8hLFkgN7ypSzq fbkoaQ7mRnz+YEC1wWTmgNWGFR3 lOjwvdGQ+CIMpOVK1tBajZYoyQG ThrP8oWYYlT2e4FuGlGfB6 PXdkE8LojvP7HWAdbUEnBPSarWP JkD2apcdrm4ivmekuZnJbGESbGD z9QBt3GEIwwShpPhNlWPC9 WtN4CUL7pZAzoS9wvFskbvwhpJ8 wOyc+RdcytJwtMPL7RIh5A9CtCa f5IAXjkXloBI6llBLmXNlv Fn6nqDpbrXsuVC4oJEBctdkbo87 5BcHbf6rfBBBcbFXeVBscXVZ7B0 9kw2J4PDIoGEVxQVG6zFA2 dT8jwLfprektmAIpsLlsbtWnqHn lQHcjARpgD628MNAmwWrzIoAqEY y8N2BcGcz7BSWkaAkkUT6m bZTwKDvhFc1swJhhvIgbXV2uIEO syzezz801NeQqi6flAHJgnMWvQI qjDKN0X20oz2R7RLWmGWJf XFN6nLV8bY0ceJkcthasmUCksFr pbiRglDakVAsyUVuxF768YGCynL imGeQrcZg4P8ZgMgs3NLUb dJhuJS0wlTCzJLeoRz4cvIbacDi gXO0wZSQmbqxsq950KfJph5fhLJ WnuEZsAZamLSL3G24ul0Q2 ZZKbKJRdVLQ6tLN5kB2ltDjttfz gbGVmdDsgdmVydGljYWwtYWxpZ2 46IHRvcDsnPlBhdGllbnQg GQllXPa5R8OxFebmlUO+DX73PCD sZN65yLMrcEWna6bouHc4KoWsBB RnTHO5zJzqVKnqb9CpQINg F37cbXEfr6L1SQWjpJwreBOfSwW ibXJ0nW5mDQqppznwr2oqmgwlCs akn3nqwx24uM99D62oYAhk PDOfVJWyTVFrNVLdlJmyqs0ywE3 wIi8+JESkdOB1cWS5rT8nWQAyOm A9EGrjM316GzOhdMVpCaff x7hzc1yntCx2HqZ9EOElkhTbcDs lEKA4v2OoGn27Y21vZAvcOTGrAJ JyBRNoUSFjgSfuya3gcL5y Ii8+FUTdnMW4bUS7uZ9cYzZwPlG 1ZMrkZ048VcPhhHSjXubkK83lZ8 JvdXA+CLHiKam6HKFfrDnr ZW0riAIeXMbsOd8lKXC3OcAkYsI iTCauB3VgWPSedvpgpbvoiAN9NS GlQZAlaE48Nk2wiAlyCUZq tSRDoZ9eqnwlz9mfbhblYrPqXIF vHLn4RYg6XVQsxHtyAcItGSL4Nn Y8MYZ1nLSnnP7abUowdhuo qA2fE5XnZQXlovgjMt86pX7hWrT iCqE8VGiyZox+T95IX8alAJ1ZZo fcRi5MSLDYPV26JS85pQNp g3Z2ePO3Y0BgGEHibhafbnwexWK 3NOPnWOUqlZ31uGYjEBrtNz4uj6 S9v973MDDkNJVjeP77Mq7v cEqhTYIirPZJzZ5gffzqf5vuqqt vUpMhNSNsJTj9CCx4JCYqqKymXl JhXRK2TpE4RFI4qOScrU6j uImlwuiuiE4pBeg+MDYvMDUvMTk 1NjwvdGQ+SIJiETF3uOigTHfjDT YsfJ6eKJQdM2s5VkNcHzE1 HWccW0KzAVWtyvgoTe01uS7dBrZ zZfH2HInzI5PzspU2CLPdqMXsVY viDYG5O31ao3F9GYDkTJWk QTM0oSK7oN3qzSkozbolzTHytSy pgrDdqWwbJQjpZDjoZ949NAZykJ awIpX0VQuvTDOdAV78PR76 xJGbk4F4yFF4F9DnOPMiktgbteg vvLX3GOBwHNCvkY05uCPhSJqeQn 6ey2X4l603SSEnNGQejU45 Wm0eoNcqJHIapUJXiU8pqgxjg9l wyqajXzDkQORhZSs7KIq4KMIltE hcXiYgSZY6HhX8VNU3dWNk rI0ayMwyitfirX3lSsx+TUFMRTw vdGQ+GEGyOJG9dUvbBFbxHWKxqW 7jIFOdM2q5GvEsZwX4GNah U0GgBKCuynmeXv46fY4rNqVdBtZ 9IHmkW6JfvaZ8NIFeuSBfXUvhBA Y7Y66mc9M9TMGbERYsRDW8 eHM7zV3vaKtctrbihWDirVaaooJ xlMqvNXukUDudM983ZVNpbSbiLs 3YMP34UX86G2QrDnhqxYYm bGU+PHRhYmxlIHdpZHRoPScxMDA fCoYouLboEC4nGh6cQFDwKAFcgB edlHKbVjJwu3lkVIIeNMlx ES0haNwpN3EerEE2RHGbz5l6Fq6 5J93iI1OegDK+QHTnnZS5jSA8wY 4bJwEdWtS7HXmkP725JbFc eOFnQcqut7vel5mvcPp6WcTgVXR skhCenHcrOIZ5o4XfOj77K93oAO dpZHRoPSIyMCUiIHZhbGln cd4jtC5iJn0+FXHbeUE3uMV9wI8 lYkHnJmR7HIofF502FpHhaJXqHa msK17lY9LvnND+PHRyPjx0 HXSbyQxwIW7ycCNpLGuiDp3oEQN 5ShMpBpHyUIztS8LlFFVnxsjqup vehET5XQWxIETyqX29Px9m kWtbLv0eKNXsCUF2IFSrcDXrB6V hsZ2zUdGoEPUiQKEhP2DvvONiZC heE551YBtbWjW2DDLdlzCy R7YsVBAvpOocPhH5k6R6Lr3LqSn odIHmHM8pNcTwSAf0W0JiXri2WA CtxQnoUZ2eoGNsLXnvXf9i wPkgeTycNA7dVJNfzggzh140RzL gq3ekNEGmqNXxMWadXLA5F69zm6 X7WYScLTUhTEI5gJW1tJ2e bGlnbjogbGVmdDsgdmVydGljYWw oVYbxS405HQItaCxtRdBSDrc8F6 ZjDxk0UAOhmAcfBV6fzSMg DTgfJj9knDtzjYfkUQ0oGVKojrq xu321GlKti8tnXWAkzRYgQYraRX R4M81wp4W4NGXzLFNtIET1 oYY5xU5daQwtappynMFvuKjjhbB wsVlyIUecJBldZ964HJYqhWzwPu 2ZBiy7F6CbTnw6EUEitXyg ZV1srBGfGPfeWt6teOvjcFhmUF2 iYSJymmyro016ErYqj0ohPSLsbH YtYCitOXY5B22qz3H3MUYu ZCYiQCM9zKG4aD7quRjvhvodxDA kgWaojkVmvVomICbaJSnbH719JI RvcDsnPlBheWVyOjwvdGQ+ FT44et88U9KcTxquFlm9DBPzLEL 2sJF5bG8bCFKrZZkjv6P2oEU8O9 IzxvXqwx7dy8gbICCjWWuq Y29 (more content not included)... [facility] Provider Orderson 10-21-2024 Provider Orders [id number] [facility] XR Spine Lumbosacral Complet e w/ Bendingon 10-21-2024 XR Spine Lumbosacral Complete w/ Bending Exam: XR Spine Lumbosacral Complete w/ Bending History: Radiculopathy lumbar region Comparison: 10/21/2019 Findings: Routine, oblique and flexion-extension views of the lumbar spine were obtained and there is no evidence of fracture. Vertebral body heights are maintained. Similar postsurgical changes to prior with anterior interbody fusion device at L4-L5 and interbody disc device at L5-S1. No signs of hardware loosening or other complications. Otherwise advanced degenerative spondylitic changes with endplate hypertrophy and multilevel facet arthropathy. There is also variable disc space height loss. Degenerative changes have progressed since prior. No significant vertebral body translation with flexion-extension views. Mild to moderate dextrocurvature of the lumbar spine. Atherosclerotic soft tissue calcifications are present in the abdomen and pelvis and there is a large calcified stone in the right upper quadrant. No acute osseous findings. Impression: Advanced degenerative changes with progression from prior, but no evidence of hardware complications or dynamic instability. Final Dictated by: Barber Whyte MD Dictated DT/TM: 10/26/24 1:58 Signed (Electronic Signature): Barber Whyte MD 10/26/24 2:02 pm Technologist: Jud BARRY [facility] Coding Summaryon 10-02-2024 Coding Summary HTMLBase 64 OkpvlwjbAGi7lMr+PGhlYWQ+PE1 RQWVoG22voDUjvM2zG3AVCFeQSt ggJQDUMUhUVvFiaxZrZQ2rpALiV XJu IC8+BW0oMCFdWsuimBTlv6I0fEC 5L56efk7iUSxzuCX5NGLvGgMeqq jbj8xtiOz3UXefXvomXuYv JAOfpZ89BCA5hY14Ae37iPNpwWP pb5moaXt7OpBcNQIuLXW5hMovQN cyw2NgWRWwT28egCMbh5W9 GXAtuNcomCCpZuSkkCT7oY6mPVk hoyexp1vtwlveHsi0rv75cSSxx5 Q7pNQ1A2QjztQ1XRVopLGe DxwzwKHMfY2hhpvps9bokldeUcD lGRUyJVh5ZUu4SOKveBobBdPzOY 42XIM1XWTxyyXvX2RjKNTx uVcvPbW6i0D8Xz0LT5UQZreaP1R NTUFSWTwvdGQ+UD27nq76O9PlKr pzOen3AXYiEDN9jZY1dV6j OVRgNZddz2F1oNX6F3NyrwIbqq8 px0etXPMxNMfsN33ioOMvk5R3VW PkgEB7UQCczBfwGlJdaO95 Oyc+CLKicMdbz5HfJcjvn9lea4q kmRq2JuywTVMievNcaAsuLSY7w7 CiSt0fURBscTM1oEF5nP7b RsAsIiB8QTotU792CsDjrHTuEal rJ07xN6UsyZD+EDHgYfs3UCZjnU ytLQ9vJ2HoJRGezzyvzVGy zTneIX3cHRKiszzlCUDlpV2rSHH cU2l9GoYgXnG6YXioI1IsDVHvsk xqCb38zJ1kEfNdEiD8WIfo J9VsrhW2MUIluFMbBCcdPWL0G61 fy7J2GOQzXZDhNBM7yBV8aQ2gbY lnbjogbGVmdDsgdmVydGlj OXcrSCpxO205NXWksZyuUcUcLSy uZyBEYXRlOiAgMDEvMjQvMjAyNT wvdGQ+CKDoFAO3aLtvKDOq fZRcUJpbEj8vaFguzYinES7xENJ vkukrQLAlhN8gVFWhhPBkcPxpKM 8qUDPwnyysb124PiNcIZP0 WGDvyLIhN4ZxiH3aNxBvXFRoKHT uC8UpvKIfRMebN665RScvEmY0SE BzrqMvO7EzYNShbEjdKeS3 t1P3Eb1Gz7RcuchyR4KukWLbCjF uTepoWSf1H8XwGcxrbZR+PC90YW UlHV07RDq2HHB1oNmhMDpe QFXmM6ZaaU4oFjTzWMVvOKTfCdg +PHRhYmxlIHdpZHRoPScxMDAlJy BjmTlzUJ8oBj4sNLOcVJJp iUiuoWQlDkDqr1uzGHIxUDqiLA6 ndKmpN9SosHQ1NPYua5a1Xb31E6 2gQ7NhgTA+PLFuuVC7pRG3 lR6iLxWyVhU5XEkaL377VnJmqLN yVnvyu5quu6uhzWi9FsN9XFMgjh FbcAfkJPE7o8CtMe54C48l IHdpZHRoPSIxNSUiIHZhbGlnbj0 icW6hJr5+GGNotRE6eRH2qX7bIy BjFtA5QQetE432FoYebSKe Scdej7nzv9chlAu9OhBqCWYnopV zhJhwOAF0r4LgXo07E2ZrwIgam5 TzHlq0ob65hSPqr5F8eAZ1 W2BiSJDqqavbdQXtcOkgBB5oIDP eeqljJEQyoX7uDAAnL4s5IkWzEi U7XVkcY9SuloN0DJWeqNCk ODObzRWQvQ8knfsst3ahrujaBxO iCROwBEt7LAl6WFPyuYbaZvFwEG S8YrG8PWM7nYEhtQ3zcMem pvbimC6uAba+PSF1fRNetNQXEI5 lOjwvdGQ+IMZlZZM7pTulTIttTL YkuE5yBXKpC9x5FbCyHvA5 XKcrP1NbqfQ0SLWkgQMaBEXflQD ImR2cxwejh1aoqeiqLoRcVGHoJG m7ZIe5YDTbiYmtHiRdTGC4 KbF0FRY8hFPybI5vnRcueedqhQ8 wOyc+VmjvzPoyXBX9ZHx5A3AjFb i8KJYwxGknGW6tsMSyENkc Ot1mlUgmmQvbCH3kBQItghlrb43 9PxIrx7dlNRTakNAfDJisCQZ9M6 4ip7Y5XSVmJGFcRTP5gDC1 uJ1teZinvpmfqIPeiGmkzxTduCg aLGjfCIstR103BZKsuTwvKmMcRX d8E5CcVuj4TEIsfLlaMT0g lBVgLJdqBs8csMcysPhbNE8yFKE sjkrdm874JmIfj3ryJNNbyFGvOO ipCPB7E12xa7L2TXBhXUFq WQG3yBM4fI4gpRxrkwyhdIDycLq nliAabPtrLHusKWneD395YVEadC etIlZjhOa3Z5IiWpr6VPKd kTraZP7wqCNmLRioDw9alEbplXy pXK3vPMXarfcrl027NtQgr4nvFF OvtKVnJVhqDYD3E19pg7V0 GHPoEPIxFVU6mMV8rJ2odNlietj gbGVmdDsgdmVydGljYWwtYWxpZ2 46IHRvcDsnPlBhdGllbnQg UHzcMVa0R3IsVmksjUK+TF62NFD vRL62uHDauVPvm5lgyGr5VaOmQU MfMZH7lEahNTzoy3AaTGMh A69vyQYgb7X4INXbvUoazRVjXwP kbMP1qQ7lZDteaodkn4jtfxztLb rim9pvkv85vX65J48xAXnp QCZsZBJfBEMqGAAybHxcql0fnC9 wIi8+DJBicAT4cHE1uB3cFUXaEc A6KTjoJ864CmKguKDhVgtq n5shj0hsaXh4JwR5INUmstTdvMp nQNN6b2ErXi46V26tKIkvTZTjWE XpDHXlZHJilTrqoy3pcG9x Ii8+QYVkiLR1xKF6hC4xHbCaYwB 9QVhkI637DgPipMBkCkduE01jU9 JvdXA+CWUyVwj9YWLncSld OB2gzXCvJZrvGb5vVGJ4CfDjXjK iNSsyX9EsIVXauyddfuoyaQG3FH InMPTgaI85Yj8iaGwbJCGv uQPQqM4psosxq8eknmfjCvDoZWS sYBb5BEo7BVYnyJurJiHqSQO9Zm X3QXH7kIFonZ3lfKrrcijm mA4gD6DiEMKcgspxFl58uE0nBeH uXvF0MNlqFqk+R88LS0qoZW5TFp otDy7CUUCOWZ71BN67sHYd n1K9aYD0I2NbLPBuohwklhegfVH 1GGJaZUCnhW34cQEmBGwxNj3yo0 A2o766HTGaQJIwxK13Pq7x uHtkXCWupNJEtI5wwejvb8wkrrm gOkGsTNFjAXx3UCk3RZHjwJwbCv PvIIL5JdU5NDE5hHWlvT6g sNscjhrnpF7jCie+MDYvMDUvMTk 1NjwvdGQ+IDWxRHD3zSdzLRsyGY WxbU5mNLSeO1j0GvQeNdP7 AFiyX0NtTFRjzroiNa76sM8xIrH fXtU7RPolB8IltkQ1TSTjeEZwUM bjTDA7L18oi5T8JSXpXWEm WKZ1lNP3wF1daYryvtwjhDDtzWy dynFtqWxlFWknJOqfF366ACKrrO tmNwV8JLttSCBgHZ43UP57 gYQmf7G7kMQ7P8EzKLUgjrbubyl gmYM3ESIhDIIxtQ40jNVlSLgpBv 5wt0X6n870ZZYeYHNghD93 Cg9zuIkdBBIzyVBVsC2sataib4g vgytsMsHvEBZfASy3HPg3OTBgjJ trSqHuHFZ9YpG5AEU7rMZz lM3zbKmxjejqeM8rRnz+TUFMRTw vdGQ+YWRbSWL0oIxkJZgcKCWwqG 5pPFDrC1v1LjGwGbJ1DQio A6AiJPMkuevdRc21jC1gToGmLtB 5HOzcY3BiofR7WHCuxBVhLHgpIA E1K06ww7U2ADTcFLMvPPV5 sME5uN8tsSlapyozpFTxaVvtbbE beQgtAQxuSFxqB524ZVMqlPqbRq 9KWV26AC97V3IfKvkqqELc bGU+PHRhYmxlIHdpZHRoPScxMDA vDxBvkTebAD7pLk6bWLJvMKUlnK vfjJGtWyKkn3akXPYbEHxg AE6qlHizX3IqzFF6KSDhm3j9Xp5 8K32eA7MdkDM+OLUvsWM1aLV3dV 4fHtDiPbH3AQocN550ZyWw sAZkRjvdh1fjc4vuwZx4UiOcOHK olrKadQntKYF4h1RwRy39B63jRD dpZHRoPSIyMCUiIHZhbGln az9kqX5vKe6+GTTbqBX1aCI3lY7 kKwNtAvY8ABzdJ976BdDtwLMmHi thS63lN6MtlUD+PHRyPjx0 PJHltUyrRL3etTJnFCyvJa3gMDM 0IwWsMxDrQLflF5GtQJVnmqkekq nnrOI3GCAbXOEbzX76Au7t hMoqEu0aMTSvMQC4FQFvkQRvT9N hcH3sIhQcQGQjLMMzQ9DypSAhGQ dhQ511MQwkMlU6YIVbucGn P5DmKLUrkJygYqM3g7V5Bu5CtMb svYYgUP7uOoZfDSz1A3LdBne3VC YtiZomFG2uuGPfROprSg5v kGqovGqrXJ6zHCGlyvtyq212OtU rz7duJLAeyRRuUDqoUTE2D28wv4 B2WPQoHMMhMOQ3hNQ4aC7f bGlnbjogbGVmdDsgdmVydGljYWw pCBskA893ZZDiiIjeGsUDRdy7D1 EfVyx8QJKeaZgkBN2zpNPr MLcpQe3xfEyodZogEF6lDNArzqp yw189SfIxf3rrYZCoiXQdYEfzNN M8A35yp6T7ANSyBIDuCBJ8 zJJ2gF8jwTgulpislZIqeRcrjtS otCjiCKioZQebH764ZBFdaBawJa 1DHbm8Z0NaFkq8LWToeEsp ER2ckRFkLDmgFt8djAnkwXqkNH6 pOSEdlrkqb006HpPvq2dnOHUuvW CzREgmCZP7K40dh7Z3ZQLe YVRxTLN1zMH0sB1iaQbruaseyIC ugTfuwhGuwJkkRGzxWQtcI377EI RvcDsnPlBheWVyOjwvdGQ+ BC42lx68F6TiTxmvEdh6HHZhUGL 1hMY7gC6kLXFyQPbis9E4mXH1J1 BtgfLrle2wj8kiATAvDDsf Y29 (more content not included)... Normal [facility] US RUQon 09-25-2024 US RUQ EXAM: US RUQ HISTORY: Right upper quadrant pain . COMPARISON: 10/08/2022 TECHNIQUE: Grayscale and color imaging was performed FINDINGS: The pancreas appears normal. Scanning of the liver demonstrates a liver to be normal in size. No masses are noted. Color-flow is noted. Scanning of the gallbladder demonstrates echogenic foci within the gallbladder with shadowing consistent with gallstones. No gallbladder wall thickening is noted. Patient had no pain upon scanning over the gallbladder. Common bile duct measures 4 mm. Right kidney measures 9.6 x 5 x 5.5 cm. No solid renal cortical masses or hydronephrosis is noted. Color-flow is noted. No fluid is noted in the right upper quadrant. IMPRESSION: 1. 2.4 cm gallstone. No gallbladder wall thickening. Patient had no pain upon scanning over the gallbladder. A similar finding was on the previous exam.. 2. The remainder of the right upper quadrant was unremarkable. Final Dictated by: Joshua Patel MD Dictated DT/TM: 09/25/24 9:32 Signed (Electronic Signature): Joshua Patel MD 09/25/24 9:34 am Technologist: PM [facility] Provider Orderson 09-22-2024 Provider Orders [id number]#[id number] [facility] Reminderson 09-18-2024 Reminders Reminders From: Leana Rawls LPN To: GSN - Clinical; Sent: 09/18/2024 08:19:51 EST Show up: 08/16/2034 07:00:00 EST Subject: colonoscopy recall Due Date/Time: 09/16/2034 07:00:00 EST Reminder/Recall Patient due for screening colonoscopy 09/16/2034. [facility] Ambulatory Visit Summaryon 1 10-19-2023 Ambulatory Visit Summary Ambulatory Visit Summary MARCOS GONZALEZ :1955 Visit Date:08/18/2024 Ambulatory Visit Instructions Your [...] choosing us for your care. [facility] General Surgery Office/Clini c Noteon 08-18-2024 [...] Previous treatment: None., (more content not included)... [facility] Comment on above: Result Comment: Elec tronically Signed By: BILLY NOVA, Abdulaziz Travis\Date and Time Signed: 08/18/24 14:30 EST Insurance Correspondenceon 0 01-01-2024 Insurance Correspondence [id number]#[id number] [facility] Coding Summaryon 04-10-2024 Coding Summary HTMLBase 64 CdroruutHHa1rGf+PGhlYWQ+PE1 NPBKzC15dyUAkbE6bX1BNJCdYXo nkIEYUKKqQCmFrhwEfLM3smOMcI XJu IC8+NB4dZXZtKivkwVPem7Z4oZJ 0U11kbd3fQRrcwQD5BMUxVwShcu ncu9tgpAw6NMawNhnmHrTz QXWweH72PMM4dY28En87lZLssEC rq8lfvEl5LeIhJDVaGGK5hCtsWL kyx5IbYIGgL13agSPqm6U7 WCZdmCuohGVnKaGrnAS8mI7jKDs cvsdjr2gqpttxUpt7ns78sPShd9 S2cVV0Q0DlhkI0BBPvjOXo SxcafZNIpJ4mcbnpe2jgqahxCiB zWRTsCQh2KQu6BBYxoInrJfCbTB 66RHA7HZOjulItZ0WtESNh lVcxSsF0d8V0Ib8AL9WKYednL6U NTUFSWTwvdGQ+PZ94hk38O3ZtBv mwCyx9VCKuIRU1fOX9uW9b HORrWRdma8X8lEC5L1FhreEcuf7 vb6zgGGVyGXuhT90gpXFjh1R3CZ IknUT8VOYreIsiXnFduQ48 Oyc+JDTzaWzek4IlAzahu0fpv2w vwIj8GkawMKUxhnHmiEvmHFQ4a6 RfXo6eAZCbzYV9oHI9yW6c OuGnVfP1REcbO086UzJckXKtQao uY44vX9DfrFK+GEAaPtb8UMBecA luVR9pZ4BvDIExzwzamMSm fPweFT2rCPNdseopROYwgS7sVVQ pT3o7NqGtKdT6GXhvR9YgBUKhke soDc74lM9gKmLcTjN4FJvy S1QhgpT1OEWtqDKtSAisTCH1C22 pr0N7AVEaWCSdCXJ6zZH3iT3coR lnbjogbGVmdDsgdmVydGlj ADyuZSesI289ZFSbyRvgEbRmFJg uZyBEYXRlOiAgMDQvMTAvMjAyND wvdGQ+VGNoTKH6pJazHKFn mIEySSqcRl2usMwwlKvkFJ4mRFP uquilRALooO2vOAIdaVNakEikFQ 8gXTEnhmuju271OmBiYIB4 FREcvQRaD4ZdhT6xBvEnHBMiBUP zC7KxlWYpAQobJ551IXhtYoY9SE GgrsIpB0BlWVKvhDmwYjY5 w2G8Qs1Hj4VcrdpkD5ZzzBEqAqZ aHxcsTLy9C0KnVnefwDS+PC90YW ZeXF09NZz8ZLY5vYslCSix KLMhM9TblB1jUvWbXGVySTBvWkm +PHRhYmxlIHdpZHRoPScxMDAlJy KwmQuuDB8iTf9oOEMhSLEn mCphpEJqJfUii7ouFPJuFFixSD8 bfQooK5GkcWG7CVFph2d9Ku02E8 4iZ8ShsWP+GWGijCL2mNR6 dP0mFaVyEjZ2XRpiV564LgNxvAZ gCzzuk9mel4bccOm3PmK9RSTszm NgwWxvCWW9n3ElQl95O93g IHdpZHRoPSIxNSUiIHZhbGlnbj0 glD0fFt4+CUXsdBQ6vAH9kK6xNt MhDxO8ZKqcJ332JfAtkRNi Ahtis4ojw8fajXj6BuUdDMUjocP hxLyoHTM8b2CiUq70X8CzkWciw7 QsUfz9lw52zKBqp8C3kON4 Y9YjQZDddhkqnPJchCseMA0lLBC bmbdqTSJqcT3tUTViU1e5EjNjHj T3UOmjV9OzxiN3YTInyTIl QUYhkEIVkX3ljimwo7etkhmnYmD aVLXtMEa1KJz3VNNfjTxpQwLnOX S1TrB7FYH2uUFpbA6biVlm jlkbwM5zTuu+MOF9mXZsmIUDVJ7 lOjwvdGQ+ODGdNTM2tYqhCNouGJ TyoJ2kEFRfA5f8OmItMtC5 OBpfY6HkytA2XEJnpFCyFEPrhLV QtK5vhpnra4qukhffXsKsEWCzJQ m3JPp9LJQezLgmMpNtVPM7 IxP2PZS3bKVbpF7drEafylddiP9 wOyc+LdxjvXrzOMQ4NDa1U9MmIm j1FUBfhQdfIZ4fzQInZXsb Pw4mmKcxoHgaAE2kCAVffbsdm65 0PgYds2jtGRWlfQXvANjaSMH5M3 9hi9I3OARiUXMwPJU4wYR9 oY9opXxwfyjdgPKryQdnobWfiHp gGOnnJBayD951MJBdsEzlOzJfKY r9K7BjIqx5LVBakNxeCM7d oWZwRUsrZn4tyScrdWedZE5wTRA ajbnxv170ErOcl6lvVDNdcRFbPK klJRK0H66ip3Q8KCLiTWKv YIP7bJZ8pQ0ewOcekmuauDPgeRo wcrSfsCykVOzwXRwqL807QBAemD etOhWosLp1F6KaHej3GYPx mQleZU1eaGNdISxwXg4kqBmpwGv dFR5zXBYpbrhdj075PrGku1pbEJ ZcoQPcZHlpYJB0R22ri3H5 OBVcSHKkGGY7wKB6sG5svWtcoxl gbGVmdDsgdmVydGljYWwtYWxpZ2 46IHRvcDsnPlBhdGllbnQg NCicAEi1O0CwStcqvTA+YG44IZW mQD76wXXsnPOmw2ltgJk5PgVsDM ZfVYB3bEsfIHdxc5OmDCRd W42gqCEez3X7TVLujKwkzDHnNeJ krLI7nF0gKUnjllwxg8mboamwIp wbc0gdrq38mU16W16rLPgg DQEuRBWuVJCqGVYevJjpnb7afK3 wIi8+FGJwwOL3pRW7aD1yLPKfNh W0BEnzD366DkMdmASsIgcp e2tpx9igaOz5RtS5PALxydRzvAz pJHJ1z5NkGq04Q72yKRblDJSqRD MjTECcIDUlfIjgmp8bfU6a Ii8+YSHznGE2kPT3eD8hGgOlYhS 0VWhtE558HnPuzAKtKdsoP57pT9 JvdXA+XOSxSgl2SGFwcIbf CF2gzBAeJNwiWm7cEHU3OdQdOgL wFMatO8YdQYBzcirwwvlozQU3GV VgSQRhsL73Hl5kzEodPLEh tXOXfY7imlmjg7gjmuclDlRpSOP pZQl3TBi9SSDslYplXaJuZID3Zi I7POH8fWQmwT3iuOxkyxuf pS4sI2GuCMReqizcHi26yT7oByL dBjQ6KMcyGed+G90IX3dsWS3YMv pjKc4ACQHARJ94EP11bTQr p2M8xVN9N8SpZJDvbwrzkbhtaAP 8PMFvNZHmcY76cZFdXJeuDc6ww9 W6v649QRTeSGKlfH33Ae3z rRogVOXibHPJdO2mtiukk1jvuls rBeUjTAHjLTi9AVu5VYRciKxyQu HcBWI2PsT8XKY4kKLscF4t uExfwjbizH9bTfn+MDYvMDUvMTk 1NjwvdGQ+IVDzGTC7xAcbLQnnCT CauG2gRAXwK5k1UiLbBfY5 VGmgU7OvVPWbhlbvWy90iF8pWgH rWtK7GKdkV0MtzmD4MXUiyCXzPG tvMTC8B40by0N5YTDzCDRv LSM7nQR1gN4hfIxuuyowkOHvvEf bndJwpAufHGvlIMyiN387VYMtnE fgXrC2IIwgAEAcTS87XG92 xBTpj1C0zNT6B4FzNAKbqtqwlmn rfRT5BDSxQCJuhL79kECeWKkwSw 4rh0Z1f548KKQuFECzxI62 Nu3uzPgdDGWgqTNBcQ5unpybz5i jjvlmPxInTGUlQPs1CQj5QSRpcT wrDtLfEPO2ZaX6FNW4jJTa sZ0erZifvvayhM5qEmo+TUFMRTw vdGQ+NFZqFHZ4tAcdLArsFGBamC 7yUJSaF7p8MzPuQyU8BCyn Q0VwJCUkgfyoHv33kK7gFmIgTlU 0BKliE6TfiyQ1HIKjxOQiOTdfPC W3O82tt2Z2HOOgVDEtUYQ1 cOB5rG9etCgupupmiJBuhHbfdoM jtDfoVAqjVGwnD605RUUdkSzeJa 0KCB48BQ24H2RtObtxpTMp bGU+PHRhYmxlIHdpZHRoPScxMDA dVbKfqNybIM1tRb6zPGLfSVDzfR kzvIHyKfVgh6qhKUFxWVtk GL8fxZgnH7GzeDJ0ZWRvp3q3Hh7 0L48cK9YoaWH+VNRrbGH1eTZ1qX 5mMpHbZhE0RYwiG878MeFt fSXiDafoy1qlr0wsiSg7LaMvNZO gnvWotXftSHC7c8GvVy93L65lVC dpZHRoPSIyMCUiIHZhbGln tf8mvP1kZx2+HFSmrKQ9jFB0hN3 dXtXxImA0TEfbB789HfPrtOYkYn kgJ48uX0YlvBS+PHRyPjx0 NIGhvZfhEM5jlGPtDKveXs8aKHE 1GjDgZoTrTGptZ8VxFNNcqwqgix fbaHE4ZOBeLFUjnX94Th8m qSrjOv1eQFRhZHW7YGQqzMDdQ8H quF2gFvIbEFOaAWVyE8XocEQbRS soF362ITneLhL7FVMlyhSm L9HpHDZliEvtPfE2h0R5Fl3FqOw ehQPuYU1nLlRmJFv1K1JgDts7UT TfuMrjJO1uqAXwAEpfVv0z jEubhYrnKY2sDCVojkpnw222RxU ri7alQLOncZYcNZfiYPX0N11xc2 Y4KELcHXAcFCI1yVX7hT1f bGlnbjogbGVmdDsgdmVydGljYWw zYLkqK027NVYruGdjHjZFUgu7Y8 VhPjd7UQJedWeyCJ1vrUGl OLysUj1cmVncfAipYW1rCDCeyko ka104MjYbk0ccALKhnLSePCfgHL R9B59iz2Y3YRNhTWFkRVX8 tTG2rA3lhHsuzbalyIBwkQhmwbL byJirGCdhCCedQ646RAPnySuuUm 1WSuw5X0PhDfs6VFKsyMes BN9jmTRaIXpoUo2caRplpGucVE0 eRPAfyeqby588TsXer9tgYFKngY EpAXspHLT2I42ao8E0LVHv XQExYZW5vNG0mR4axTfdvyqxsRU atJkldbTufAenLAxqSDeqU531KE RvcDsnPlBheWVyOjwvdGQ+ QP85sr79P3GaWrfyAar5DKAqKCT 9pMZ8rI1mFEAoFKpxx9U6sQU0H9 GziuQczj2ww5auRKAnJWob Y29 (more content not included)... [facility] Consent for Procedure/Surger n 12-11-2023 Consent for Procedure/Surgery [id number]#1.00TIFF [facility] Ambulatory Visit Summaryon 0 12-10-2023 Ambulatory Visit Summary MARCOS GONZALEZ :1955 Visit Date:12/10/2023 Ambulatory Visit Instructions Your Care Team Attending Physician - BILLY NOVA, Abdulaziz Seo Primary Care Physician - Frankie NOVA, Karen Referring Physician - Karen David MD This [...] for choosing us for your care. Normal [facility] Physician Referralon 024 Physician Referral [id number]#1.00TIFF [facility] Physician Referral [id number]#1.00TIFF [facility] CNCOon 01-01-2018 CNCO Letter Text [facility]lickmanUrological and Kidney InstituteAlessio Gómez MDGenitourinary ReconstructionOffice: [phone]: [phone]: [phone] for SurgeryInstructions for: Marcos Gonzalez[address] [facility] [address]WYA# [id number] Regional Health System Surgery [place] [id number] wish to prepare you and your family for your surgery scheduled on 04/04/18at the [facility]. My staff and I willattempt to make the experience for you and your family as comfortable andstress-free as possible.Information Required for Surgery:PreAnesthesia Consultation Clinic (PACC) AppointmentYou will be contacted by our PACC schedulers prior to your surgical visit.You may also directly contact the PACC schedulers at [phone] to scheduleyour PACC appointment. You have the [...] youalso need to see a specialist (e.g. defence intelligence analyst, slot floorman or anotherspecialist) prior to surgery.Please contact my office if you have been diagnosed with a new medicalcondition since your PreAnesthesia appointment, such as asthma, a heartcondition, a neurological condition, or any other medical condition so thatadditional medical clearance can be obtained prior to surgery. I will informyou if you require any additional diagnostic tests in preparation forsurgery.Medical Insurance: Please contact Customer Service at [phone] as soonas possible if your insurance company [...] for mostpeople. Stop all herbal remedies (echinacea, Belterra's Wort, Garlic, GingkoBiloba, Ginseng) one week before [...] [facility] [place]. This includes: Sprite, water, ai radha, black [...] before surgery, please call them at 4:00PM [phone] in order to obtain this information.Day of [...] withyou.Directions: Please use the Internet sites like [address] or Douguo if you require driving directions to [facility] ([address] [place], [place] [address]).Please contact my office if you require further assistance.Again, my staff and I will attempt to make this experience as comfortable andstress-free as possible. Please do not hesitate to call my office at if you have any questions or concerns regarding your surgery.Sincerely yours,Alessio Gómez MD [facility] CNOVon 12-30-2017 CNOV Office Visit (UROLMN) -------MARCOS GONZALEZ ([id number]) 1955 MDate Time Provider Department12/30/17 1:30 PM ALESSIO GÓMEZ During your visit today, we recorded the following information about you: Temperature Pulse Blood pressure 98.6 degrees 92/minute 168/97Alessio Gómez MD 12/30/2017 2:31 PM [facility] PATIENT HISTORY AND PHYSICAL EXAMPATIENT INFO: Marcos Gonzalez 62 year oldREFDAKOTA M.D.: Gerri Roque MD[address] [place], [place] [address]Yyrq consult was requested by Gerri Roque MD for an opinion regardingpeyronies disease, and my final recommendations will be communicated to [facility] care provider by way of the shared medical record forinternal providers or letter via the [employer] for externalproviders.========= HIST ORY ========Chief Complaint: peyronie's diseaseHPI: 62 yo M with PMH of depression, previous Hep C, HTN, migraines, [place],nephrolithiasis, HLD who reports to clinic with CC [...] of Dupuytren's contracture or Ledderhose's disease none ========MEDICATIONS:Current Outpatient Prescriptions:oxyCODONE-gurpreet taminophen (PERCOCET) 5-325 mg ORAL per tablet take [...] SYSTEMS:Constitutional: negativeEyes: negativeEar Nose and Throat: negativeCardiovascular: IL last year (s/p triple bypass CABG)Respiratory: negativeGastrointestinal: positive hep CMusculoskeletal: negativeIntegumentary: negativeNeurological: negativePsychiatric: positive depressionEndocrine: negativeHematologic/Lymphat ic: negativeAllergic/Immunologi c: negative PHYSICAL EXAM: There were no vitals taken for this visit.GENERAL: [...] 2:08 PMRecommended Treatments: IPPSHIMReferring Provider: GERRI ROQUE [[id number]]Allergies As of Date: 12/30/2017(No Known Allergies)Date Reviewed: 12/30/2017Reviewed by: Alessio Gómez - Fully AssessedPrimary Visit Diagnosis:ED (erectile dysfunction) of organic origin [N52.9] Other Visit Diagnoses:Screening for genitourinary condition [Z13.89] Peyronie's disease [N48.6]Order(s):UA CHEMSTRIP ONLY [SQUA] Order #: [id number] FUTURE UA CHEMSTRIP ONLY [SQUA] Order #: [id number]. #:[id number] escriptions as of 12/30/2017 Sig: LISINOPRIL 20 MG [...] OXYCODONE-ACETAMINOPHEN 5 MG-325 MG TABLET >> Alessandra Dunaway 12/30/2017 1:10 PM >> APRIL ALESSANDRA SatDec 30, 2017 1:10 PM Patient not taking. ATORVASTATIN 40 MG TABLET >> Alessandra Dunaway 12/30/2017 1:12 PM >> APRILJYOTIALESSANDRA SatDec 30, 2017 1:12 PM Received from: External Pharmacy PANTOPRAZOLE 40 MG TABLET,DELAYED RELEASE >> Alessandra Dunaway 12/30/2017 1:12 PM >> APRIL ALESSANDRA SatDec 30, 2017 1:12 PM Received from: External Pharmacy TIZANIDINE 4 MG TABLET >> Alessandra Dunaway 12/30/2017 1:12 PM >> APRIL ALESSANDRA SatDec 30, 2017 1:12 PM Received from: [facility] Received Sig: Take 4 mg by mouthnightly.Problem List As Of Date 12/30/2017 Noted Resolved VIR HEP NEC W/O COMA W HEP C CHRON [B18.2] INVALID FOR* CIRRHOSIS OF LIVER NOS [K74.60] INVALID FOR* Acquired Spondylolisthesis [M43.10] INVALID FOR* DDD (Degenerative Disc Disease), Lumbar [M51.36]INVALID FOR* Lumbago [M54.5] INVALID FOR* ED (erectile dysfunction) of organic origin [N5*INVALID FOR* Peyronie's disease [N48.6] INVALID FOR*Letter TextApril 2017Gerri Roque MD[address] [facility] [place], [place] [address]Gvbj: Marcos Gonzalezkristen No.: [id number] of Service: 12/30/2017Dearlet Roque:I had the pleasure of seeing your patient today. 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 We areplanning inflatable penile prosthesis implantation.Diagnosis: Organic erectile dysfunction (N52.8)Procedure: Inflatable penile prosthesis implantation ([id number])Sincerely yours,Alessio Gómez M.D.M:msEncounter Number: [id number] Status:Closed by ALESSIO GÓMEZ MD on 12/30/17 Normal [facility] PROGRESSon 12-30-2017 PROGRESS HNO ID: [id number] thor: Alessio GómezSernatee: (none)Author Type: PhysicianType: Progress NotesFiled: 01/02/2018 11:07 AMNote Text:[facility] UROLOGICAL INSTITUTENEW PATIENT HISTORY AND PHYSICAL EXAMPATIENT INFO: Marcos Gonzalez 62 year oldREFERRING M.D.: Gerri Roque MD[address] [place], [place] [address]Abuu consult was requested by Gerri Roque MD for an opinion regardingpeyronies disease, and my final recommendations will be communicated tothe requesting health care provider by way of the shared medical recordfor internal providers or letter via the [facility] Postal Service forexternal providers. HISTORY===== Chief Complaint: peyronie's diseaseHPI: 62 yo M with PMH of depression, previous Hep C, HTN, migraines, [place],nephrolithiasis, HLD who reports to clinic with CC [...] of Dupuytren's contracture or Ledderhose's disease none ========MEDICATIONS:Current Outpatient Prescriptions:oxyCODONE-gurpreet taminophen (PERCOCET) 5-325 mg ORAL per tablet take [...] SYSTEMS:Constitutional: negativeEyes: negativeEar Nose and Throat: negativeCardiovascular: [place] last year (s/p triple bypass CABG)Respiratory: negativeGastrointestinal: positive hep CMusculoskeletal: negativeIntegumentary: negativeNeurological: negativePsychiatric: positive depressionEndocrine: negativeHematologic/Lymphat ic: negativeAllergic/Immunologi c: negative PHYSICAL EXAM: There were no vitals taken for this visit.GENERAL: [...] be approximately equal to hiscurrent stretched lengthSignature: Alessio Gómez, Reza Date: 12/30/2017Service Time: 2:08 PMRecommended Treatments: IPPSHIM Normal [facility] Urinalysison 12-30-2017 Bilirubin, Urine Negative Normal Negative [facility] Comment on above: Performed By: #### U A ####[place] [address] [address] [place] [phone] Comments SEE COMMENT [facility] Comment on above: Result Comment: Micr oscopic not warranted Performed By: #### U A ####[place] [address] [address] [place] [phone] Hemoglobin mass conc (Bld) Negative Normal Negative [facility] Comment on above: Performed By: #### U A ####[place] [address] [address] [place] [phone] Leukest Negative Normal Negative [facility] Comment on above: Performed By: #### U A ####[place] [address] [address] [place] [phone] pH of blood 5.0 [pH] Normal 4.5-8.0 [facility] Comment on above: Performed By: #### U A ####[place] [address] [address] [place] [phone] Protein, Urine Negative Normal Negative [facility] Comment on above: Performed By: #### U A ####[place] [address] [address] [phone] Specific [place], Ur 1.011 Normal 1.005-1.03 0 [facility] Comment on above: Performed By: #### U A ####[place] [address] [address] [place] [phone] Urine [place] Comment SEE COMMENT [facility] Comment on above: Result Comment: N/A Performed By: #### U A ####[facility], [place] [phone] Urine, clarity Clear Normal Clear [facility] Comment on above: Performed By: #### U A ####[place] [address] [address] [facility], [place] [phone] Urine, color Yellow Normal Yellow [facility] Comment on above: Performed By: #### U A ####[place] [address] [address]C[facility], [place] [phone] Urine, glucose presence Negative Normal Negative [facility] Comment on above: Performed By: #### U A ####[place] [address] [address], [place] [phone] Urine, ketones presence Negative Normal Negative [facility] Comment on above: Performed By: #### U A ####[place] [address] [address], [place] [phone] Urine, nitrite presence Negative Normal Negative [facility] Comment on above: Performed By: #### U A ####[place] [address] [address] [phone] Urine, urobilinogen Normal Normal Normal [facility] Comment on above: Performed By: #### U A ####[place] [address] [address] [place] [phone] Vital Signs Date Time Vital Sign Value Performing Clinician Alexsandra mortensen 12-01-2024 13:52-0400 Body height 167.6 cm Jose Rodriguez APRN-KASSI Work Phone: [facility] 12-01-2024 13:52-0400 Body mass index (BMI) [Ratio] 24.24 kg/m2 Jose Rodriguez APRN-SCIENCE CONSULTANT Work Phone: [facility] 12-01-2024 13:52-0400 Body weight 68.13 kg Jose MELÉNDEZ Work Phone: [facility] [employer] [facility] 12-01-2024 13:52-0400 Diastolic blood pressure 84 mm[Hg] Jose Rodriguez APRN-SCIENCE CONSULTANT Work Phone: [facility] 12-01-2024 13:52-0400 Heart rate 75 /min Jose Rodriguez APRN-SCIENCE CONSULTANT Work Phone: [facility] 12-01-2024 13:52-0400 Systolic blood pressure 160 mm[Hg] Jose Rodriguez AITCHBONE BREAKER-SCIENCE CONSULTANT Work Phone: [facility] 11-02-2024 14:25-0500 Body height 167.6 cm Pm 2 [facility] 11-02-2024 14:25-0500 Body mass index (BMI) [Ratio] 25.02 kg/m2 Pm 2 [facility] 11-02-2024 14:25-0500 Body weight 70.31 kg Pm 2 [facility] 10-28-2024 13:10-0500 Body height 167.6 cm Abdulaziz Mcnair DO Work Phone: [facility] 10-28-2024 13:10-0500 Body mass index (BMI) [Ratio] 24.34 kg/m2 Abdulaziz Mcnair DO Work Phone: [facility] 10-28-2024 13:10-0500 Body weight 68.4 kg Abdulaziz Mcnair DO Work Phone: [facility] 10-28-2024 13:10-0500 Diastolic blood pressure 62 mm[Hg] Abdulaziz Mcnair DO Work Phone: [facility] 10-28-2024 13:10-0500 Heart rate 71 /min Abdulaziz Mcnair DO Work Phone: [facility] 10-28-2024 13:10-0500 Systolic blood pressure 138 mm[Hg] Abdulaziz Mcnair DO Work Phone: [facility] 08-18-2024 14:04-0500 Blood Pressure Location Abdulaziz NILL [facility] 08-18-2024 14:04-0500 Diastolic blood pressure 84 mm[Hg] Abdulaziz NILL [facility] 08-18-2024 14:04-0500 Heart rate 72 /min Abdulaziz NILL [facility] 08-18-2024 14:04-0500 Respiratory rate 16 /min Abdulaziz NILL [facility] 08-18-2024 14:04-0500 Systolic blood pressure 142 mm[Hg] Abdulaziz NILL [facility] 12-10-2023 15:00-0400 Blood Pressure Location Abdulaziz NILL [facility] 12-10-2023 15:00-0400 Diastolic blood pressure 94 mm[Hg] Abdulaziz NILL [facility] 12-10-2023 15:00-0400 Heart rate 66 /min Abdulaziz NILL [facility] 12-10-2023 15:00-0400 Respiratory rate 16 /min Abdulaziz NILL [facility] 12-10-2023 15:00-0400 Systolic blood pressure 178 mm[Hg] Abdulaziz NILL [facility] 11-13-2022 14:20-0500 Diastolic blood pressure 100 mm[Hg] Joe MERCEDES [facility] 11-13-2022 14:20-0500 Mean blood pressure 131 mm[Hg] Joe MERCEDES [facility] 11-13-2022 14:20-0500 Systolic blood pressure 194 mm[Hg] Joe MERCEDES [facility] 11-13-2022 14:10-0500 Blood Pressure Location Joe MERCEDES [facility] 11-13-2022 14:10-0500 Diastolic blood pressure 98 mm[Hg] Joe MERCEDES [facility] 11-13-2022 14:10-0500 Heart rate 80 /min Joe MERCEDES [facility] 11-13-2022 14:10-0500 Systolic blood pressure 185 mm[Hg] Joe MERCEDES [facility] 10-30-2022 13:42-0500 Blood Pressure Location Abdulaziz KAYL [facility] 10-30-2022 13:42-0500 Diastolic blood pressure 82 mm[Hg] Abdulaziz KAYL [facility] 10-30-2022 13:42-0500 Heart rate 70 /min Abdulaziz NILL [facility] 10-30-2022 13:42-0500 Respiratory rate 16 /min Abdulaziz NILL [facility] 10-30-2022 13:42-0500 Systolic blood pressure 136 mm[Hg] Abdulaziz NILL [facility] Encounters Encounter Date Encounter Type Care Provider Facility Start: 12-03-2024 End: 12-03-2024 ambulatory [facility] Facility:[facility] Start: 12-01-2024 End: 12-01-2024 Postop follow up visit related to original px Jose Rodriguez AITCHBONE BREAKER-SCIENCE CONSULTANT Work Phone: [facility] Comment on above: Status post laparosc opic cholecystectomy (Primary Dx) Start: 12-01-2024 End: 12-01-2024 ambulatory JOSE RODRIGUEZ [facility] Start: 11-17-2024 End: 11-17-2024 Evaluation and management of inpatient RAMILA RUBY [facility] Start: 11-17-2024 End: 11-17-2024 Evaluation and management of inpatient ABDULAZIZ Joaquin SAI [facility] Start: 11-02-2024 End: 11-02-2024 ambulatory JOSHUA Villegas KRISTEN [facility] Start: 11-02-2024 Encounter for other [facility]procedural [facility] Start: 11-02-2024 End: 11-02-2024 Patient encounter procedure [facility] Pre-Admission Testing 2 [facility] - Pre Admit Comment on above: Hepatitis C virus in fection without hepatic coma, unspecified chronicity (Primary Dx); Preop examination; Hypertension, unspecified type; Cardiogenic shock (CMS-HCC); ST elevation myocardial infarction (STEMI) of inferior wall (CMS-HCC); ST elevation myocardial infarction (STEMI), unspecified artery ([facility]-HCC) Start: 11-02-2024 End: 11-02-2024 Preprocedural examination done Pm 2 [facility] Start: 10-28-2024 End: 10-28-2024 Office outpatient new 45 minutes Abdulaziz Mcnair DO Work Phone: [facility] Comment on above: Calculus of bile alma t with chronic cholecystitis without obstruction (Primary Dx); History of heart disease Start: 10-28-2024 End: 10-28-2024 ambulatory ABDULAZIZ MCNAIR [facility] Start: 10-23-2024 ambulatory KAREN Villegas Adelaida [facility] Start: 10-21-2024 End: 10-21-2024 ambulatory [facility] Facility:[facility] Start: 10-12-2024 End: 10-12-2024 Telephone encounter Abdulaziz Mcnair DO Work Phone: [facility] Start: 09-25-2024 End: 09-25-2024 ambulatory [facility] Facility:[facility] Start: 09-16-2024 End: 09-16-2024 ambulatory Abdulaziz GORE Facility:[id number] Start: 08-18-2024 End: 08-18-2024 ambulatory Abdulaziz GORE Facility: [facility] Start: 08-18-2024 End: 08-18-2024 Patient encounter procedure Abdulaziz GORE [facility] Start: 12-10-2023 End: 12-10-2023 ambulatory Karen David Facility: [facility] Start: 12-10-2023 End: 12-10-2023 Patient encounter procedure Abdulaziz GORE General Surgery Billy/Said [facility] Start: 12-05-[address] ABDULAZIZ GORE . Facil ity:[facility] Start: 11-13-2022 End: 11-13-2022 Patient encounter procedure Joe MERCEDES [facility] Start: 10-30-2022 End: 10-30-2022 Patient encounter procedure Abdulaziz GORE General Surgery Monical/Said [facility] Start: 12-30-2017 End: 01-01-2018 Ambulatory ALESSIO GÓMEZ [facility] Procedures Date Procedure Procedure Detail Performing Clinician Anterior transpositi on of ulnar nerve Abdulaziz GORE Coronary artery bypa ss grafts x 3 Abdulaziz GORE Excision of lumbar intervertebral disc Abdulaziz GORE Comment on above: L4-L5 History of cholecystectomy Status post laparoscopic cholecystectomy Jose Rodriguez AITCHBONE BREAKER-SCIENCE CONSULTANT Work Phone: Plan of Treatment Date Care Activity Detail Author Start: 12-02-2025 [facility] Start: 12-01-2025 Adult BMI Screening Adult BMI Screen ing [facility] Start: 02-24-2026 Adult BMI Screening Adult BMI Screen ing [facility] Start: 11-02-2025 Tobacco Screening Tobacco Screening [facility] Start: 10-28-2025 Adult BMI Screening Adult BMI Screen ing [facility] Start: 10-28-2025 Tobacco Screening Tobacco Screening [facility] Start: 12-01-2024 End: 12-01-2024 Patient encounter procedure 12/01/2024 2:00 PM EDT Office Visit [facility] Surgery [address] [place] [phone] Jose Rodriguez, AITCHBONE BREAKER-SCIENCE CONSULTANT [address] [place], [place] [phone] [facility] Start: 11-17-2024 End: 11-17-2024 Admission to same day surgery center 11/17/2024 9:45 AM EDT - 11/17/2024 11:15 AM EDT Surgery [facility] Surgery [address] [place] [address] Abdulaziz Mcnair DO [address] [place], [place] [phone] DAVINCI CHOLECYSTECTOMY [10220 (CPT )] [facility] Comment on above: DAVINCI CHOLECYSTECT RADHA [39431 (CPT )] Start: 11-17-2024 End: 11-17-2024 Anesthesia consultation 11/17/2024 9:45 AM EDT Anesthesia Event [facility] - Surgery [address] [place] [address] Ramila Ruby, DO [address] [facility], [place] [phone] [facility] Start: 11-17-2024 End: 11-17-2024 Laparoscopy surg cholecystectomy [facility] CHOLECYSTECTOMY cholelithiasis, chronic cholecystitis 11/17/2024 9:45 AM EDT [facility] Start: 11-17-2024 Subsequent hospital visit by physician 11/17/2024 9:45 AM EDT Hospital Encounter [facility] - Surgery [address] [place] [address] Abdulaziz Mcnair, DO [address] [place] [address] [facility] Start: 11-02-2024 End: 11-02-2024 Patient encounter procedure 11/02/2024 2:15 PM EST Procedure visit [facility] - Pre Admit [address] [place] [address] [facility] Start: 10-28-2024 End: 10-28-2024 Patient encounter procedure 10/28/2024 2:15 PM EST Office Visit [facility] General Surgery [address] [place] [address] Abdulaziz Mcnair, DO [address] [place] [address] [facility] Surgery Start: 05-10-2024 COVID-19 Vaccine ( season) COVID-19 Vaccine ( season) [facility] Start: 05-10-2024 Influenza vaccination Influenza Vacc ine [facility] Start: 02-11-2021 Fall Risk Screening Fall Risk Screen ing [facility] Start: 02-11-2006 Administration of varicella zoster vaccine Zoster (Shingles) Vaccine (1 of 2) [facility] Start: 02-11-1975 DTaP,Tdap and Td Vac cines (1 - Tdap) DTaP,Tdap and Td Vaccines (1 - Tdap) [facility] Start: 02-11-1974 Adult BMI Follow Up Plan Adult BMI F ollow Up Plan [facility] Start: 02-11-1974 Adult BMI Screening Adult BMI Screen ing [facility] Start: 1968 Depression Screening Depression Scre ening [facility] Start: 1968 Tobacco Screening Tobacco Screening [facility] End: 10-28-2025 CBC panel - Blood by Automated count CBC without diff Lab Routine 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 1 Occurrences starting 10/28/2024 until 10/28/2025 [employer] Work Phone: Comment on above: 1 Occurrences starti ng 10/28/2024 until 10/28/2025 End: 12-02-2025 CBC panel - Blood by Automated count CBC without diff Lab Routine Status post laparoscopic cholecystectomy 1 Occurrences starting 12/02/2024 until 12/02/2025 [employer] Work Phone: Comment on above: 1 Occurrences starti ng 12/02/2024 until 12/02/2025 End: 10-28-2025 Comprehensive metabolic 2000 panel - Serum or Plasma Comprehensive metabolic panel Lab Routine 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 1 Occurrences starting 10/28/2024 until 10/28/2025 [facility] Comment on above: 1 Occurrences starti ng 10/28/2024 until 10/28/2025 End: 10-28-2025 Unlisted Procedure / Surgery Unlisted Procedure / Surgery Procedures Routine 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 1 Occurrences starting 10/28/2024 until 10/28/2025 [facility] Comment on above: 1 Occurrences starti ng 10/28/2024 until 10/28/2025 Immunizations Immunization Date Immunization Notes Care Provider [facility] 08-11-2021 SARS-CoV-2 (COVID-19 ) mRNA-1273 vaccine Abdulaziz GORE General [facility] 11-15-2020 SARS-CoV-2 (COVID-19 ) Ad26 vaccine, recombinant Abdulaziz GORE [facility] 07-07-2020 influenza, unspecifi ed formulation Joe MERCEDES [facility] 07-07-2020 influenza virus vaccine, unspecified formulation Abdulaziz Mcnair DO Work Phone: [facility] 07-15-2019 influenza virus vaccine, unspecified formulation Joe MERCEDES [facility] 06-10-2019 influenza, unspecifi ed formulation Joe MERCEDES [facility] 10-15-2018 influenza virus vaccine, unspecified formulation Joe MERCEDES [facility] 08-15-2017 influenza, unspecifi ed formulation Joe MERCEDES [facility] NEGATED: Highlighted row has not occurred!10-30-2022 influenza virus vaccine, unspecified formulation Abdulaziz KAYAlexsander [facility] Payers Date Payer Category Payer Medicare HMO [id number] 2015 Unknown [id number] 1959 Self-pay [id number] 1955 Unknown [id number] 2.16.84 0.1.757851.3.579.2.593 1955 Unknown [id number] 2.16.8 40.1.194659.3.579.2.727 1956 Unknown [id number] 2.16.8 40.1.098731.3.579.2.727 1956 Unknown [id number] 2.16.8 40.1.247735.3.579.2.727 1956 Unknown [id number] 2.16. 840.1.331202.3.579.2.1286 1956 Unknown [id number] 2.16. 840.1.865508.3.579.2.1286 1956 Unknown [id number] 2.16. 840.1.773287.3.579.2.1286 1956 Unknown [id number] 2.16. 840.1.723726.3.579.2.1286 1956 Unknown [id number] 2.16. 840.1.992109.3.579.2.1286 1956 Unknown [id number] 2.16. 840.1.233695.3.579.2.1286 1956 Unknown [id number] 2.16. 840.1.865232.3.579.2.1286 1956 Unknown [id number] 2.16. 840.1.531875.3.579.2.1286 1956 Unknown [id number] 2.16. 840.1.723685.3.579.2.1286 1956 Unknown [id number] 2.16. 840.1.018630.3.579.2.1286 1956 Unknown [id number] 2.16.8 40.1.980278.3.579.2.718 1956 Unknown [id number] 2.16.8 40.1.367370.3.579.2.718 1956 Unknown [id number] 2.16.8 [id number] Social History Date Type Detail Facility Start: 10-30-2022 End: 10-28-2024 Tobacco smoking status Never smoked tobacco (finding) [facility] Tobacco smoking status Never Gener [facility] Start: 10-20-2020 End: 11-15-2021 Sex Assigned At Male [facility] Start: 11-15-2021 End: 12-02-2024 Alcoholic beverage intake Current drinker of alcohol (finding) [facility] Start: 10-20-2020 End: 11-15-2021 Alcoholic beverage intake [facility] Start: 1955 Sex assigned at Not on file P [facility] Start: 04-14-2015 Sex Male (finding) [facility] Start: 10-28-2024 Tobacco use and exposure Smokeless tobacco non-user [facility] Start: 11-02-2024 Alcohol Comment daily [facility] Functional Status Date Assessment Result Facility 08-18-2024 Functional Status N/A [facility] 12-10-2023 Functional Status N/A [facility] 11-13-2022 Functional Status N/A [facility] 10-30-2022 Functional Status N/A General [facility] Clinical Notes 11-13-2022 to 12-01-2024 Jose Rodriguez, [employer]SULTANT - 12/01/2024 2:00 PM EDTPatient InstructionsPerioperative Nursing Note - Shara Henry RN - 11/02/2024 2:15 PM Kely Mcnair, - 10/28/2024 1:15 PM EST Note Date & Type Note Facility 12-01-2024 History of Present illness Narrative Images from the original note were not included. Subjective Marcos Gonzalez is a 69 y.o. male status post robotic assisted laparoscopic cholecystectomy on 11/17/2024. He has no concerns. He reports an increased amount of bruising starting 2 days after surgery. He states he bruises very easily. Not currently taking his aspirin. He has no pain. He is tolerating oral intake. He denies nausea/vomiting. He is having bowel function. He denies fever/chills. He denies dizziness/lightheadedness. Vitals stable today. He has a history of hepatitis-C and cirrhosis. Objective Vitals: 12/01/24 1352 BP: 160/84 Pulse: 75 Physical Exam Constitutional: General: He is not in acute distress. Appearance: Normal appearance. He is not ill-appearing, toxic-appearing or diaphoretic. Eyes: Pupils: Pupils are equal, round, and reactive to light. Pulmonary: Effort: Pulmonary effort is normal. No respiratory distress. Abdominal: General: There is no distension. Palpations: Abdomen is soft. Tenderness: There is no abdominal tenderness. There is no right CVA tenderness or left CVA tenderness. Comments: Lap sites are clean, dry and intact. No signs of infection. He has a very large amount of ecchymosis across his bilateral lower abdomen, right flank and upper right thigh (improved since sx. per patient). Musculoskeletal: General: Normal range of motion. Skin: General: Skin is warm and dry. Findings: Bruising present. No erythema. Comments: Right forearm/wrist ecchymosis from IV site. Neurological: Mental Status: He is alert and oriented to person, place, and time. Mental status is at baseline. Assessment Marcos Gonzalez is a 69 y.o.male postoperative laparoscopic cholecystectomy. Final Pathologic Diagnosis Gallbladder; cholecystectomy: Mild chronic cholecystitis with cholelithiasis. Plan Check CBC. Continue to hold aspirin. No NSAIDs. Activity restrictions for another month. Recommended follow-up to monitor ecchymosis. Patient declines, states he feels fine and will call back if needed. Status post laparoscopic cholecystectomy [Z90.49] MEDHAT MARSHALL [facility] General Surgery [place] This note was created with the assistance of a speech recognition program. While intending to generate a timely document that accurately reflects the content of the visit, no guarantee can be provided that every grammatical or spelling mistake has been or will be identified or corrected. Thank you for your understanding. MEDHAT Marshall 12/03/24 1014 documented in this encounter [facility] 11-02-2024 Instructions Shara Henry RN - 11/02/2024 2:15 PM EST Preoperative Education Checklist- General Surgery date: 11/17/24 Surgery time: 0945 a.m. Arrival time: 0745 a.m. 1. Bring a photo ID and your insurance card with you the day of surgery. You will check in at the main lobby of the [facility]- registration desk is straight ahead as soon as you walk in. Tell them you are here for surgery. 2. If you have a Living Will/Durable Power of Multicultural Services Librarian for Health Care that is not on file here, please bring a copy the day of surgery. 3. Please shower/bathe the night before surgery with the provided soap or wipes. Do not shower the morning of surgery- you will do use wipes when you arrive here at the hospital before getting into your surgical gown. Do not shave the area of your procedure for 2 days prior to your surgery. 4. NO powder, lotion, perfume/cologne, aftershave, make-up, deodorant, or hair products after you have bathed. 5. NO nail azerbaijani/acrylic on at least one finger. If you are having a hand, wrist or foot surgery then all nail azerbaijani and artificial/acrylic nails must be removed from that hand or foot. 6. Avoid ALL Aspirin and non-steroidal anti-inflammatory drugs and certain vitamins (Ibuprofen, Advil, Aleve, Excedrin, Meloxicam, Celebrex, fish/krill oil, etc.) for 7 days prior to surgery as instructed by your surgeon and/or your prescribing doctor. Tylenol IS ALLOWED. If you are on Ticlid, Xarelto, Eliquis, Pradaxa, Plavix or Coumadin, please check with your prescribing doctor for instructions for when to stop them. 7. If you use an inhaler, continue to use it routinely. 8. Nothing to eat or drink (not even water, gum, mints, or hard candy!) AFTER midnight prior to your surgery. 9. Take only medications that you are instructed to on the morning of surgery with a TINY SIP OF WATER. 10. Choose a responsible adult that will be able to drive you home when you are discharged from your hospital stay for your surgery and can stay with you in your home for 24 hours after your procedure. You must NOT drive any vehicle or operate any machinery for 24 hours after surgery. 11. When you dress for your appointment, please wear loose fitting clothing that is appropriate to accommodate your surgical area procedure. BRING WITH YOU ANY DEVICES YOU MAY NEED: JO ANN hose, ice machine, sling/swath, brace or special shoe, oversized zip-up or button up shirt, CPAP machine if staying overnight. 12. Do NOT wear jewelry, watches, or any piercings or metal for surgery- leave these valuables and money at home. 13. Do NOT wear contact lenses for surgery- glasses are okay if needed. 14. The anesthesiologist will talk with you the day of surgery and will ask you to sign a Consent Form. 15. Refrain from smoking or any type of tobacco use for at least 8 hours and marijuana for 24 hours prior to arrival for your surgery. 16. If a GREEN BLOOD band is given to you, please bring it with you for the day of surgery. 17. Notify your surgeon if you develop any illness before your surgery. 18. If you are staying overnight, please DO NOT BRING your home medications with you. 19. If you have any questions prior to surgery, please call the Preadmission Testing office at [phone], Mon.-Fri. 7 a.m.-3 p.m. Leave a voicemail if needed. Pre-Surgery Instructions: Medication Instructions aspirin 81 mg Stop taking 1 week prior to procedure atorvastatin (LIPITOR) 40 mg tablet Stop taking 0 days prior to procedure carisoprodoL (SOMA) 350 mg tablet Stop taking 0 days prior to procedure carvediloL (COREG) 6.25 mg tablet Take morning of procedure lisinopriL (PRINIVIL,ZESTRIL) 40 mg tablet Stop taking 0 days prior to procedure pantoprazole (PROTONIX) 40 mg EC tablet Take morning of procedure sertraline (ZOLOFT) 100 mg tablet Stop taking 0 days prior to procedure How to Avoid an Infection after Your Surgery Your doctor will give you specific instructions, but remember: -ALWAYS wash hands before caring for your incision. -No picking, scratching, or rubbing your incision. -No creams, lotion, powder, rubbing alcohol or hydrogen peroxide on the incision (can harm the tissue and slow healing). -Your doctor will give you specific instructions for what type of dressing you will need and how often it will need changed for infection purposes. -No tight clothing on incision. -Do not allow anyone to touch your incision unless they are cleaning, checking, or redressing it (be sure they wash their hands first). -No contact of your incision with pets; avoid sleeping with pets. -Take full course of antibiotic if prescribed for you after surgery- do not stop unless directed to by your physician. You may also be given an antibiotic prior to your surgery to help prevent surgical site infections. -Eat a healthy and varied diet including proteins, fruits, and vegetables to help promote wound healing and keep blood sugars under control if you are diabetic. -Smoking slows the healing process by decreasing the amount of oxygen in your blood that is needed for tissue healing. Try to avoid or stop smoking if possible. LOOK at your incision each morning and each night to check the progress of healing. Some soreness, numbness, itching and/or mild bruising around the incision is normal. Call your doctor if you notice any of the following: -Increased redness or hardening around the incision area. -Increased pain at the incision site. -Incision feels hot to the touch. -Swelling or pulling apart of the incision edges. -Yellow or green drainage or foul odor coming from the incision. -Bleeding from the incision (apply pressure as needed). -Fever higher than 101 degrees Fahrenheit for more than 4 hours. SHOWERING: Your doctor will give you specific instructions, but remember: -Be careful getting into and out of the shower. -Showers should be quick (5 minutes or less). -Use a clean washcloth to gently wash your incision with soap and water and pat the area dry with a clean towel. -No re-using wash cloths or towels; get a fresh one to clean your incision. -Do not soak in the bathtub, go swimming or use a hot tub (Jacuzzi), or perform activities where your incision is submerged in water or exposed to any fluids or substances until instructed by your doctor. -If your have the sticky strips (steri-strips) over the incision, it is OK to shower with them. Do not remove them. Let them fall off on their own. If you have a question, call your doctor s office. Go to the follow-up appointment with your doctor. [facility] Miscellaneous Notes Preoperative Education Checklist- General Surgery date: 11/17/24 Surgery time: 0945 a.m. Arrival time: 0745 a.m. 1. Bring a photo ID and your insurance card with you the day of surgery. You will check in at the main lobby of the [facility]- registration desk is straight ahead as soon as you walk in. Tell them you are here for surgery. 2. If you have a Living Will/Durable Power of Multicultural Services Librarian for Health Care that is not on file here, please bring a copy the day of surgery. 3. Please shower/bathe the night before surgery with the provided soap or wipes. Do not shower the morning of surgery- you will do use wipes when you arrive here at the hospital before getting into your surgical gown. Do not shave the area of your procedure for 2 days prior to your surgery. 4. NO powder, lotion, perfume/cologne, aftershave, make-up, deodorant, or hair products after you have bathed. 5. NO nail azerbaijani/acrylic on at least one finger. If you are having a hand, wrist or foot surgery then all nail azerbaijani and artificial/acrylic nails must be removed from that hand or foot. 6. Avoid ALL Aspirin and non-steroidal anti-inflammatory drugs and certain vitamins (Ibuprofen, Advil, Aleve, Excedrin, Meloxicam, Celebrex, fish/krill oil, etc.) for 7 days prior to surgery as instructed by your surgeon and/or your prescribing doctor. Tylenol IS ALLOWED. If you are on Ticlid, Xarelto, Eliquis, Pradaxa, Plavix or Coumadin, please check with your prescribing doctor for instructions for when to stop them. 7. If you use an inhaler, continue to use it routinely. 8. Nothing to eat or drink (not even water, gum, mints, or hard candy!) AFTER midnight prior to your surgery. 9. Take only medications that you are instructed to on the morning of surgery with a TINY SIP OF WATER. 10. Choose a responsible adult that will be able to drive you home when you are discharged from your hospital stay for your surgery and can stay with you in your home for 24 hours after your procedure. You must NOT drive any vehicle or operate any machinery for 24 hours after surgery. 11. When you dress for your appointment, please wear loose fitting clothing that is appropriate to accommodate your surgical area procedure. BRING WITH YOU ANY DEVICES YOU MAY NEED: JO ANN hose, ice machine, sling/swath, brace or special shoe, oversized zip-up or button up shirt, CPAP machine if staying overnight. 12. Do NOT wear jewelry, watches, or any piercings or metal for surgery- leave these valuables and money at home. 13. Do NOT wear contact lenses for surgery- glasses are okay if needed. 14. The anesthesiologist will talk with you the day of surgery and will ask you to sign a Consent Form. 15. Refrain from smoking or any type of tobacco use for at least 8 hours and marijuana for 24 hours prior to arrival for your surgery. 16. If a GREEN BLOOD band is given to you, please bring it with you for the day of surgery. 17. Notify your surgeon if you develop any illness before your surgery. 18. If you are staying overnight, please DO NOT BRING your home medications with you. 19. If you have any questions prior to surgery, please call the Preadmission Testing office at [phone], Mon.-Fri. 7 a.m.-3 p.m. Leave a voicemail if needed. Pre-Surgery Instructions: Medication Instructions aspirin 81 mg Stop taking 1 week prior to procedure atorvastatin (LIPITOR) 40 mg tablet Stop taking 0 days prior to procedure carisoprodoL (SOMA) 350 mg tablet Stop taking 0 days prior to procedure carvediloL (COREG) 6.25 mg tablet Take morning of procedure lisinopriL (PRINIVIL,ZESTRIL) 40 mg tablet Stop taking 0 days prior to procedure pantoprazole (PROTONIX) 40 mg EC tablet Take morning of procedure sertraline (ZOLOFT) 100 mg tablet Stop taking 0 days prior to procedure How to Avoid an Infection after Your Surgery Your doctor will give you specific instructions, but remember: -ALWAYS wash hands before caring for your incision. -No picking, scratching, or rubbing your incision. -No creams, lotion, powder, rubbing alcohol or hydrogen peroxide on the incision (can harm the tissue and slow healing). -Your doctor will give you specific instructions for what type of dressing you will need and how often it will need changed for infection purposes. -No tight clothing on incision. -Do not allow anyone to touch your incision unless they are cleaning, checking, or redressing it (be sure they wash their hands first). -No contact of your incision with pets; avoid sleeping with pets. -Take full course of antibiotic if prescribed for you after surgery- do not stop unless directed to by your physician. You may also be given an antibiotic prior to your surgery to help prevent surgical site infections. -Eat a healthy and varied diet including proteins, fruits, and vegetables to help promote wound healing and keep blood sugars under control if you are diabetic. -Smoking slows the healing process by decreasing the amount of oxygen in your blood that is needed for tissue healing. Try to avoid or stop smoking if possible. LOOK at your incision each morning and each night to check the progress of healing. Some soreness, numbness, itching and/or mild bruising around the incision is normal. Call your doctor if you notice any of the following: -Increased redness or hardening around the incision area. -Increased pain at the incision site. -Incision feels hot to the touch. -Swelling or pulling apart of the incision edges. -Yellow or green drainage or foul odor coming from the incision. -Bleeding from the incision (apply pressure as needed). -Fever higher than 101 degrees Fahrenheit for more than 4 hours. SHOWERING: Your doctor will give you specific instructions, but remember: -Be careful getting into and out of the shower. -Showers should be quick (5 minutes or less). -Use a clean washcloth to gently wash your incision with soap and water and pat the area dry with a clean towel. -No re-using wash cloths or towels; get a fresh one to clean your incision. -Do not soak in the bathtub, go swimming or use a hot tub (Jacuzzi), or perform activities where your incision is submerged in water or exposed to any fluids or substances until instructed by your doctor. -If your have the sticky strips (steri-strips) over the incision, it is OK to shower with them. Do not remove them. Let them fall off on their own. If you have a question, call your doctor s office. Go to the follow-up appointment with your doctor. Hibiclens and surgical instructions reviewed. Patient verbalized understanding. documented in this encounter [facility] 11-02-2024 Nurse Note Preoperative Education Checklist- General Surgery date: 11/17/24 Surgery time: 0945 a.m. Arrival time: 0745 a.m. 1. Bring a photo ID and your insurance card with you the day of surgery. You will check in at the main lobby of the [facility]- registration desk is straight ahead as soon as you walk in. Tell them you are here for surgery. 2. If you have a Living Will/Durable Power of Multicultural Services Librarian for Health Care that is not on file here, please bring a copy the day of surgery. 3. Please shower/bathe the night before surgery with the provided soap or wipes. Do not shower the morning of surgery- you will do use wipes when you arrive here at the hospital before getting into your surgical gown. Do not shave the area of your procedure for 2 days prior to your surgery. 4. NO powder, lotion, perfume/cologne, aftershave, make-up, deodorant, or hair products after you have bathed. 5. NO nail azerbaijani/acrylic on at least one finger. If you are having a hand, wrist or foot surgery then all nail azerbaijani and artificial/acrylic nails must be removed from that hand or foot. 6. Avoid ALL Aspirin and non-steroidal anti-inflammatory drugs and certain vitamins (Ibuprofen, Advil, Aleve, Excedrin, Meloxicam, Celebrex, fish/krill oil, etc.) for 7 days prior to surgery as instructed by your surgeon and/or your prescribing doctor. Tylenol IS ALLOWED. If you are on Ticlid, Xarelto, Eliquis, Pradaxa, Plavix or Coumadin, please check with your prescribing doctor for instructions for when to stop them. 7. If you use an inhaler, continue to use it routinely. 8. Nothing to eat or drink (not even water, gum, mints, or hard candy!) AFTER midnight prior to your surgery. 9. Take only medications that you are instructed to on the morning of surgery with a TINY SIP OF WATER. 10. Choose a responsible adult that will be able to drive you home when you are discharged from your hospital stay for your surgery and can stay with you in your home for 24 hours after your procedure. You must NOT drive any vehicle or operate any machinery for 24 hours after surgery. 11. When you dress for your appointment, please wear loose fitting clothing that is appropriate to accommodate your surgical area procedure. BRING WITH YOU ANY DEVICES YOU MAY NEED: JO ANN hose, ice machine, sling/swath, brace or special shoe, oversized zip-up or button up shirt, CPAP machine if staying overnight. 12. Do NOT wear jewelry, watches, or any piercings or metal for surgery- leave these valuables and money at home. 13. Do NOT wear contact lenses for surgery- glasses are okay if needed. 14. The anesthesiologist will talk with you the day of surgery and will ask you to sign a Consent Form. 15. Refrain from smoking or any type of tobacco use for at least 8 hours and marijuana for 24 hours prior to arrival for your surgery. 16. If a GREEN BLOOD band is given to you, please bring it with you for the day of surgery. 17. Notify your surgeon if you develop any illness before your surgery. 18. If you are staying overnight, please DO NOT BRING your home medications with you. 19. If you have any questions prior to surgery, please call the Preadmission Testing office at [phone], Mon.-Fri. 7 a.m.-3 p.m. Leave a voicemail if needed. Pre-Surgery Instructions: Medication Instructions aspirin 81 mg Stop taking 1 week prior to procedure atorvastatin (LIPITOR) 40 mg tablet Stop taking 0 days prior to procedure carisoprodoL (SOMA) 350 mg tablet Stop taking 0 days prior to procedure carvediloL (COREG) 6.25 mg tablet Take morning of procedure lisinopriL (PRINIVIL,ZESTRIL) 40 mg tablet Stop taking 0 days prior to procedure pantoprazole (PROTONIX) 40 mg EC tablet Take morning of procedure sertraline (ZOLOFT) 100 mg tablet Stop taking 0 days prior to procedure How to Avoid an Infection after Your Surgery Your doctor will give you specific instructions, but remember: -ALWAYS wash hands before caring for your incision. -No picking, scratching, or rubbing your incision. -No creams, lotion, powder, rubbing alcohol or hydrogen peroxide on the incision (can harm the tissue and slow healing). -Your doctor will give you specific instructions for what type of dressing you will need and how often it will need changed for infection purposes. -No tight clothing on incision. -Do not allow anyone to touch your incision unless they are cleaning, checking, or redressing it (be sure they wash their hands first). -No contact of your incision with pets; avoid sleeping with pets. -Take full course of antibiotic if prescribed for you after surgery- do not stop unless directed to by your physician. You may also be given an antibiotic prior to your surgery to help prevent surgical site infections. -Eat a healthy and varied diet including proteins, fruits, and vegetables to help promote wound healing and keep blood sugars under control if you are diabetic. -Smoking slows the healing process by decreasing the amount of oxygen in your blood that is needed for tissue healing. Try to avoid or stop smoking if possible. LOOK at your incision each morning and each night to check the progress of healing. Some soreness, numbness, itching and/or mild bruising around the incision is normal. Call your doctor if you notice any of the following: -Increased redness or hardening around the incision area. -Increased pain at the incision site. -Incision feels hot to the touch. -Swelling or pulling apart of the incision edges. -Yellow or green drainage or foul odor coming from the incision. -Bleeding from the incision (apply pressure as needed). -Fever higher than 101 degrees Fahrenheit for more than 4 hours. SHOWERING: Your doctor will give you specific instructions, but remember: -Be careful getting into and out of the shower. -Showers should be quick (5 minutes or less). -Use a clean washcloth to gently wash your incision with soap and water and pat the area dry with a clean towel. -No re-using wash cloths or towels; get a fresh one to clean your incision. -Do not soak in the bathtub, go swimming or use a hot tub (Jacuzzi), or perform activities where your incision is submerged in water or exposed to any fluids or substances until instructed by your doctor. -If your have the sticky strips (steri-strips) over the incision, it is OK to shower with them. Do not remove them. Let them fall off on their own. If you have a question, call your doctor s office. Go to the follow-up appointment with your doctor. [facility] 11-02-2024 Nurse Note Hibiclens and surgical instructions reviewed. Patient verbalized understanding. [facility] 10-28-2024 History of Present illness Narrative Images from the original note were not included. [facility] [address] [facility] [id number] CONSULT NOTE CHIEF COMPLAINT Chief Complaint Patient presents with Cholelithiasis Cholelithiasis, referred by Dr. Frankie Pengrobert is a 69 y.o. male presenting with intermittent RUQ pain. He first noticed it a year ago but it was more diffuse and didn't cause him much trouble. The past six months he says the pain has gotten much worse and increased in frequency. It is located in the RUQ and epigastric region. He has changed his diet to avoid fried foods and tomato based products because he noticed that those would set off the pain. He has previous medical history of an [place] with triple bypass in 2016 and back surgery in 2008. He is currently taking a daily aspirin. Ultrasound from [facility] showed a 2.4 cm gallstone no evidence of cholecystitis and no other abnormal findings. MEDICATION Current Outpatient Medications: aspirin 81 mg, Take 1 tablet (81 mg total) by mouth in the morning., Disp: , Rfl: atorvastatin (LIPITOR) 40 mg tablet, Take 1 tablet (40 mg total) by mouth nightly., Disp: , Rfl: carisoprodoL (SOMA) 350 mg tablet, Take 1 tablet (350 mg total) by mouth daily as needed for muscle spasms., Disp: , Rfl: carvediloL (COREG) 6.25 mg tablet, Take 1 tablet (6.25 mg total) by mouth in the morning and 1 tablet (6.25 mg total) in the evening. Take with meals., Disp: , Rfl: lisinopriL (PRINIVIL,ZESTRIL) 40 mg tablet, Take 1 tablet (40 mg total) by mouth in the morning., Disp: , Rfl: metoprolol tartrate (LOPRESSOR) 100 mg tablet, Take 1 tablet (100 mg total) by mouth 3 (three) times a day., Disp: , Rfl: pantoprazole (PROTONIX) 40 mg EC tablet, Take 1 tablet (40 mg total) by mouth in the morning., Disp: , Rfl: sertraline (ZOLOFT) 100 mg tablet, Take 1 tablet (100 mg total) by mouth in the morning., Disp: , Rfl: tiZANidine (ZANAFLEX) 4 mg tablet, Take 1 tablet (4 mg total) by mouth nightly., Disp: , Rfl: sennosides-docusate sodium (SENNA WITH DOCUSATE SODIUM) 8.6-50 mg, Take 2 tablets by mouth 2 (two) times a day. Hold for loose stools (Patient not taking: Reported on 10/28/2024), Disp: , Rfl: sennosides-docusate sodium (SENNA WITH DOCUSATE SODIUM) 8.6-50 mg, Take 2 tablets by mouth 2 (two) times a day. Hold for loose stool (Patient not taking: Reported on 10/28/2024), Disp: , Rfl: tiZANidine (ZANAFLEX) 4 mg tablet, Take 4 mg by mouth once daily at bedtime. (Patient not taking: Reported on 10/28/2024), Disp: , Rfl: ALLERGY No Known Allergies MEDICAL HISTORY Past Medical History: Diagnosis Date Bone spur left shoulder Bone spur Depression GERD (gastroesophageal reflux disease) Heart attack ([facility]) Hep C w/o coma, chronic ([facility]) Hypertension Hypotension Trigger finger of all digits of both hands SURGICAL HISTORY Past Surgical History: Procedure Laterality Date APPENDECTOMY BACK SURGERY lumbar fusion BACK SURGERY CABG PROCEDURE X 3/EVH LEFT LEG /EMILY N/A 02/13/2017 Performed by Noe Martin MD at [facility] Coronary angiogram and left ventricular gram/pressure N/A 02/13/2017 Performed by Cait Castro MD at [facility] CATH [facility]S CORONARY ARTERY BYPASS GRAFT Insert/replace temporary single lead pacemaker N/A 02/13/2017 Performed by Cait Castro MD at [facility]ATH [facility] Intra-aortic balloon pump insertion-percutaneous N/A 02/13/2017 Performed by Cait Castro MD at [facility]ATH [facility] SOCIAL HISTORY Social History Socioeconomic History Marital status: Unknown Spouse name: Not on file Number of children: Not on file Years of education: Not on file Highest education level: Not on file Occupational History Not on file Tobacco Use Smoking status: Never Smokeless tobacco: Never Vaping Use Vaping status: Never Used Substance and Sexual Activity Alcohol use: Yes Alcohol/week: 24.0 standard drinks of alcohol Types: 24 Cans of beer per week Drug use: Yes Types: Marijuana Sexual activity: Not Currently Other Topics Concern Not on file Social History Narrative Merged History Encounter Social Drivers of Health Financial Resource Strain: Not on file Food Insecurity: No Food Insecurity (10/28/2024) Hunger Screening Food Insecurity - Worry: Never True Food Insecurity - Inability: Never True Transportation Needs: Not on file Physical Activity: Not on file Stress: Not on file Social Connections: Not on file Interpersonal Safety: Not on file Housing Instability: Not on file FAMILY HISTORY Family History Problem Relation Age of Onset Cancer Father Cancer Sister REVIEW OF SYSTEMS: Negative except for as noted above PHYSICAL EXAM Constitutional: He is oriented to person, place, and time. Vital signs are normal. He appears well-developed and well-nourished. Cardiovascular: Normal rate and regular rhythm. Pulmonary/Chest: Effort normal and breath sounds normal. Abdominal: Soft. Normal appearance. He exhibits no distension and no mass. There is no hepatosplenomegaly or splenomegaly. There is negative Mario's sign. No hernia. Neurological: He is alert and oriented to person, place, and time. Skin: Skin is warm, dry and intact. Psychiatric: He has a normal mood and affect. His speech is normal and behavior is normal. Cognition and memory are normal. IMPRESSION Cholecystitis History of heart disease History of back pain/surgery ASSESSMENT & PLAN Pt was offered the option to have a cholecystectomy. Due to his cardiac history he is going to need clearance from his PCP or a defence intelligence analyst. He was notified of all the risks of the procedure and verbalized understanding Robotic/Laparoscopic cholecystectomy with possible open cholecystectomy. I discussed the risks, benefits, and alternatives to surgery, which may include infection, bleeding, bile duct injury, intestinal injury, blood clots in legs or lungs, pneumonia, heart attack, and/or . Patient voices understanding and wishes to proceed. 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 While intending to generate a timely document that accurately reflects the content of the visit, no guarantee can be provided that every grammatical or spelling mistake has been or will be identified or corrected. Thank you for your understanding. documented in this encounter [facility] 10-12-2024 Miscellaneous Notes Called Marcos regarding the gallstone referral that our office received from Dr David, left a message on voicemail to call the office back to schedule an appointment. Marcos called the office back and we scheduled him an appointment on 10/28/[address] Mcnair. documented in this encounter [facility] 10-12-2024 Telephone encounter Note Called Marcos regarding the gallstone referral that our office received from Dr David, left a message on voicemail to call the office back to schedule an appointment. [facility] 10-12-2024 Telephone encounter Note Marcos called the office back and we scheduled him an appointment on 10/28/[address] Mcnair. [facility] 12-12-2023 Note Chief Complaint consultation for positive [...] - Not Given Patient Refuses SARS-CoV-2 (COVID-19) [id number] (more content not included)... [facility] Comment on above: Result Comment: Elec tronically Signed By: Abdulaziz GORE MD\Date and Time Signed: 12/12/23 08:58 EDT 11-13-2022 Hospital Discharge instructions Patient Education 11/13/2022 [...] urethra. Follow these instructions at home: Take cfmv-giv-aiprque and prescription medicines only as told by [...] 08/26/2006 Document Revised: 07/21/2019 Document Reviewed: 09/30/2017 [employer] Patient Education 2020 [employer] Follow Up Care 09/27/2022 10:53:29 With:MAGO NOVA, Joe Schumacher, URL Address: [address] [place], [place] [id number]- When:6 months Comments:w/ PSA [facility] Evaluation + Plan note Future Appointments Appointment Date:11/13/2022 02:00:00 PM Scheduled Provider:Joe MERCEDES MD Location:[facility] Appointment Type:URO New Patient General Surgery [facility] Evaluation + Plan note Future Appointments Appointment Date:05/21/2023 01:45:00 PM Scheduled Provider:Joe MERCEDES MD Location:[facility] Appointment Type:URO Office Visit Diagnostic Tests PendingPSA Free & Total 11/13/22 [facility] Evaluation note Diagnosis 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- Primary Calculus of bile duct with other cholecystitis, without mention of obstruction History of heart disease Hepatitis C virus infection without hepatic coma, unspecified chronicity- Primary Preop examination Unspecified pre-operative examination Hypertension, unspecified type Cardiogenic shock (CMS-HCC) Cardiogenic shock ST elevation myocardial infarction (STEMI), unspecified artery (CMS-HCC) documented in [facility] Diagnosis Hepatitis C virus infection without hepatic coma, unspecified chronicity- Primary Preop examination Unspecified pre-operative examination Hypertension, unspecified type Cardiogenic shock (CMS-HCC) Cardiogenic shock ST elevation myocardial infarction (STEMI), unspecified artery (CMS-HCC) Hepatitis C virus infection without hepatic coma, unspecified chronicity Preop examination Unspecified pre-operative examination Hypertension, unspecified type Cardiogenic shock (CMS-HCC) Cardiogenic shock ST elevation myocardial infarction (STEMI), unspecified artery (CMS-HCC) Hepatitis C virus infection without hepatic coma, unspecified chronicity Preop examination Unspecified pre-operative examination Hypertension, unspecified type Cardiogenic shock (CMS-HCC) Cardiogenic shock ST elevation myocardial infarction (STEMI), unspecified artery (CMS-HCC) [facility]* Diagnosis Status post laparoscopic cholecystectomy- Primary Other postprocedural status documented [facility] this [facility] Narrative No data available for this section General [facility] Discharge instructions No data available for this section General [facility] InstructionsNot on filedocumented in this encounter [facility] filed[facility]ed in this [facility] filedocumented in this [facility] No data available for this section [facility] Summary Purpose Family History No Family History Records FoundNo Family History Records Found No data available for this section No data available for this section No Family History Records FoundNo Family History Records FoundNo Family History Records FoundNo Family History Records Found Advance Directives No Advanced Directives Records Found Date Activated Date Inactivated Comments 02/13/2017 4:32 AM 02/18/2017 4:55 PM Date Activated Date Inactivated Comments 02/13/2017 4:32 AM 02/18/2017 4:55 PM Additional Source Comments (unrecognized sect ion and content) No Status Records FoundNo Status Records FoundNo Status Records FoundNo Status Records FoundNo Status Records FoundNo Status Records Found INFORMATION SOURCE (unrecogn ized section and content) DATE CREATED AUTHOR 02/27/2018 [facility] DATE CREATED AUTHOR AUTHOR'S ORGANIZ ATION 11/09/2022 [facility] DATE CREATED AUTHOR AUTHOR'S ORGANIZ ATION 09/23/2024 [facility] DATE CREATED AUTHOR AUTHOR'S ORGANIZ ATION 11/25/[address] 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 David Reason Comments Post-op Post op davinci chol ecystectomy performed 11/17/24 at [facility] FOR RECORDS PERTAINING TO PATIENTS WHO ARE [...] BE BASED ON THE PRIMARY CLINICAL RECORDS. [facility]. provides no warranty or guarantee of the accuracy or completeness of information in this document.
[2025-05-27 10:57] LABS: Hematocrit 37.6 % (42.0-54.0); Hemoglobin 12.4 g/dL (14.0-18.0); Immature Granulocytes Abs Auto 0.17 10^3/uL (0.00-0.03); Immature Granulocytes Pct Auto 2.5 % (0.0-0.5); Lymphocytes Absolute Auto 1.5 10^3/uL (1.2-3.8); Mean Corpuscular HGB Conc 33.0 g/dL (29.9-35.2); Mean Corpuscular Hemoglobin 29.1 pg (25.9-34.0); Mean Corpuscular Volume 88.3 fL (80.0-94.0); Platelet Count 94 10^3/uL (150-450); Red Blood Count 4.26 10^6/uL (4.70-6.10); White Blood Count 6.9 10^3/uL (4.0-11.0)
[2025-05-27 12:25] LABS: Alanine Aminotransferase 113 U/L (16-63); Albumin Globulin Ratio 0.9; Albumin Level 3.6 g/dL (3.4-5.0); Alkaline Phosphatase 93 U/L (46-116); Anion Gap 14.1; Aspartate Amino Transferase 101 U/L (15-37); Blood Urea Nitrogen 16.0 mg/dL (7.0-18.0); Calcium 8.9 mg/dL (8.5-10.1); Carbon Dioxide 24.5 mmol/L (21.0-32.0); Chloride 106 mmol/L (98-107); Cholesterol 160 mg/dL (<=200); Estimated GFR (African America >60 (>=60 mL/min/1.73m^2); Estimated GFR (Non-African Ame >60 (>=60 mL/min/1.73m^2); Free T3 2.09 pg/mL (2.18-3.98); Globulin 3.8 g/dL; Glucose 100 mg/dL (74-106); HDL Cholesterol 85 mg/dL (40-60); Potassium 4.6 mmol/L (3.5-5.1); Sodium 140 mmol/L (136-145); Thyroid Stimulating Hormone 1.823 uIU/mL (0.358-3.740); Total Protein 7.4 g/dL (6.4-8.2); Triglycerides 48 mg/dL (<=150); VLDL CHOLESTEROL 9.6 mg/dL
== END 2025-05-27 10:21 | disposition home or self-care (01) ==
LOC: LAB 10:23
PROVIDERS: PCP Family Medicine; Visit Provider Family Medicine
DX: Z00.00 Encounter for general adult medical examination without abnormal findings (principal); I10 Essential (primary) hypertension; D64.9 Anemia, unspecified; Z12.11 Encounter for screening for malignant neoplasm of colon; E78.1 Pure hyperglyceridemia; R53.83 Other fatigue; Z79.899 Other long term (current) drug therapy; Z12.5 Encounter for screening for malignant neoplasm of prostate; R73.01 Impaired fasting glucose
CPT/HCPCS: 36415; 80053; 80061; 83036; 84436; 84443; 84481; 85025; G0103